=== PATIENT | male | born 1940 | race Hispanic/Latino ===

== ENCOUNTER 2019-09-24 12:46 | Inpatient (IN) | payer MEDICARE, OTHER ==
[~2019-09-24] VITALS: Ht 165.1 cm; Wt 97.1 kg
--- NOTE | 2019-09-24 13:32 | Emergency Department Note ---
History of Present Illnes History of Present Illness Chief Complaint: COVID PUI History of Present Illness This is a 79 year old male with SOB. D/C this AM from outside hospital. States he was in hospital for 2 days due to COVID with similar symptoms, but now worse. Historian: Patient, Family Member Arrival Mode: Car Onset (how long ago): day(s) Onset quality: gradual Duration (how long): day(s) Timing of current episode: constant Progression: worsening Chronicity: new Context: Reports recent illness Relieving factors: none, other Exacerbating factors: movement Associated symptoms: Reports fever/chills; Denies confusion, Denies chest pain, Denies cough, Denies diaphoresis, Denies headaches, Denies nausea/vomiting Past Medical/Family History Physician Review I have reviewed the patient's past medical and family history. Any updates have been documented here. Past Medical History Recent Fever: No Clinical Suspicion of Infectio: No New/Unexplained Change in Ment: No Past Medical History: Hypertension, [place] Other Medical History: CAD Past Surgical History: None Social History Any Illegal Drug Use: No Physically hurt or threatened: No Family History Family history of heart diseas: Yes Review of Systems Review of Systems Constitutional: Reports chills, Reports fever EENTM: Reports no symptoms Cardiovascular: Denies chest pain, Denies palpitations, Denies syncope Respiratory: Reports as per HPI, Reports cough Gastrointestinal: Denies diarrhea, Denies nausea Genitourinary: Reports no symptoms Musculoskeletal: Reports muscle pain Neurological: Reports no symptoms Psychological: Reports no symptoms Endocrine: Reports no symptoms Review of other systems: All other systems negative Physical Exam Related Data Allergies: Coded Allergies: No Known Allergies (Unverified , 09/24/19) Triage Vital Signs Vital Signs Date Time Temp Pulse Resp B/P (MAP) Pulse Ox O2 Delivery O2 Flow Rate FiO2 09/24/19 13:20 99.0 91 28 90/40 56 Room Air Physical Exam CONSTITUTIONAL Constitutional: Present well-developed HENT HENT: Present normocephalic, Present atraumatic EYES Eyes: Reports conjunctivae normal, Reports left eye discharge, Reports right eye discharge, Reports other (completes, full sentences, but pauses between sentences. Handles secretions.) NECK PULMONARY Pulmonary: Present respiratory distress, Present other (Patient RR 40's with sat of 58%, improved with O2 15L with sat 90% - able to complete full sentences, but had to pause between sentences.) CARDIOVASCULAR Cardiovascular: Present regular rhythm GASTROINTESTINAL Abdominal: Present soft, Present nontender GENITOURINARY SKIN Skin: Absent rash MUSCULOSKELETAL NEUROLOGICAL Neurological: Present alert, Present oriented x 3 PSYCHOLOGICAL Results Imaging Imaging Comments Procedure: [id number] HOPD/CXR 1 VEW - HOPD Exam Date: 09/24/19 Exam Time: 1333 REPORT STATUS: Signed EXAMINATION: CXR 1 VEW - HOP INDICATION: Shortness of breath, cough COMPARISON: None FINDINGS: LINES/TUBES:None LUNGS:The lungs are moderately inflated. Mild bilateral hazy opacities. PLEURA:No pleural effusion or pneumothorax. MEDIASTINUM:The cardiomediastinal silhouette appears normal in size and shape. BONES/SOFT TISSUES:No acute osseous injury. ABDOMEN:No free air under the diaphragm. IMPRESSION: Mild bilateral hazy opacities. Atypical pneumonia should be excluded clinically. Signed by: Ahmet Cleaning MD on 09/24/2019 1:39 PM Dictated By: AHMET CLEANING MD [id number] Transcribed By: PIERRE on 09/24/19 1339 Assessment & Plan Medical Decision Making MDM CAD, DC, PE, COVID, pneumonia, CHF, COPD Reassessment Reassessment Patient improved with O2. Spoke with EM physician at Patient's ER who accepted. Assessment & Plan Final Impression: (1) COVID-19 Depart Disposition: DIS/DOBBS T0 ACUTE CARE HOS[facility] Last Vital Signs Date Time Temp Pulse Resp B/P (MAP) Pulse Ox O2 Delivery O2 Flow Rate FiO2 09/24/19 13:20 99.0 91 28 90/40 56 Room Air ALEJANDRO YU MD Sep 24, 2019 13:32
--- NOTE | 2019-09-24 13:42 | Diagnostic Imaging Report ---
EXAMINATION: CXR 1 W - HOP INDICATION: Shortness of breath, cough COMPARISON: None FINDINGS: LINES/TUBES:None LUNGS:The lungs are moderately inflated. Mild bilateral hazy opacities. PLEURA:No pleural effusion or pneumothorax. MEDIASTINUM:The cardiomediastinal silhouette appears normal in size and shape. BONES/SOFT TISSUES:No acute osseous injury. ABDOMEN:No free air under the diaphragm. IMPRESSION: Mild bilateral hazy opacities. Atypical pneumonia should be excluded clinically. Signed by: Ken Cleaning MD on 09/24/2019 1:39 PM
[2019-09-24 14:01] LABS: BASOPHILS # (AUTO) 0.1 (0.0-0.1); BASOPHILS % 0.2 % (0.0-1.0); HEMATOCRIT 37.1 % (38.2-49.6); HEMOGLOBIN 12.6 g/dL (14.0-18.0); LYMPHOCYTES # (AUTO) 0.9 (1.0-3.2); MEAN CORPUSCULAR HEMOGLOBIN 31.5 pg (28-32); MEAN CORPUSCULAR VOLUME 92.8 fL (81-99); MONOCYTES # (AUTO) 1.5 (0.2-0.8); MONOCYTES % 6.9 % (4.4-11.3); NEUTROPHILS # (AUTO) 18.4 (2.1-6.9); NEUTROPHILS % 86.8 % (38.7-80.0); PLATELET COUNT 423 x10e3/uL (140-360)
[2019-09-24 14:44] LABS: ALBUMIN/GLOBULIN RATIO 0.7 (0.8-2.0); ANION GAP 20.3 mmol/L (8-16); CALCIUM 9.9 mg/dL (8.4-10.2); CREATININE, SERUM 2.09 mg/dL (0.72-1.25); POTASSIUM 4.3 mmol/L (3.5-5.1)
[2019-09-24] MEDS ORDERED: CEFTRIAXONE SOD 1 GM VIAL IV ONE (15:15)
--- NOTE | 2019-09-24 15:29 | Diagnostic Imaging Report ---
EXAMINATION: CHEST SINGLE (PORTABLE) INDICATION: Shortness of breath COMPARISON: Chest radiograph of earlier the same day. FINDINGS: LINES/TUBES:EKG leads overlie the chest. LUNGS:The lungs are moderately inflated. Mild hazy bilateral opacities. PLEURA:No pleural effusion or pneumothorax. MEDIASTINUM:The cardiomediastinal silhouette appears unchanged in size and shape. BONES/SOFT TISSUES:No acute osseous injury. ABDOMEN:No free air under the diaphragm. IMPRESSION: No significant interval change. Signed by: Ken Cleaning MD on 09/24/2019 3:26 PM
[2019-09-24] MEDS ORDERED: CEFTRIAXONE SOD 1 GM/NS 50 ML 50 ML IV ONE (15:30)
[2019-09-24] MEDS ORDERED: DEXAMETHASONE SOD PHOS 10 MG/1 ML VIAL IV ONE (16:00)
[2019-09-24] MEDS ORDERED: SODIUM CHLORIDE 0.9% 1000ML 1,000 ML IV SCH ×2 (16:30→17:00)
--- NOTE | 2019-09-24 16:40 | Emergency Department Note ---
History of Present Illnes History of Present Illness Chief Complaint: COVID PUI History of Present Illness This is a 79 year old male .Chief Complaint Comment Reports he was released from the hospital and is covid + room air sat is 56%, 86% on 15L NRB Historian: Patient, Family Member Arrival Mode: Car Onset (how long ago): day(s) Location: CHEST Quality: DULL Radiation: Denies non-radiation, Denies back, Denies neck, Denies extremity, Denies abdomen, Denies periumbilical, Denies flank, Denies proximal, Denies distal, Denies other Severity: severe Onset quality: gradual Duration (how long): day(s) Timing of current episode: constant Progression: worsening Chronicity: new Context: Reports recent illness Relieving factors: none, other Exacerbating factors: none, movement Associated symptoms: Reports denies other symptoms, Reports cough, Reports fever/chills; Denies confusion, Denies chest pain, Denies diaphoresis, Denies headaches, Denies nausea/vomiting Past Medical/Family History Physician Review I have reviewed the patient's past medical and family history. Any updates have been documented here. Past Medical History Recent Fever: No Clinical Suspicion of Infectio: No New/Unexplained Change in Ment: No Past Medical History: Hypertension, [place] Other Medical History: CAD Past Surgical History: None Social History Smoking Cessation: Unknown if ever smoked Counseling Performed: No Alcohol Use: None Any Illegal Drug Use: No Physically hurt or threatened: No Family History Family history of heart diseas: Yes Other Any Pre-Existing Lines (PICC,: Yes (HOPD) Review of Systems Review of Systems Constitutional: Reports as per HPI, Reports chills, Reports fever, Reports weakness EENTM: Reports no symptoms Cardiovascular: Denies chest pain, Denies palpitations, Denies syncope Respiratory: Reports as per HPI, Reports cough Gastrointestinal: Denies diarrhea, Denies nausea Genitourinary: Reports no symptoms Musculoskeletal: Reports muscle pain Integumentary: Reports no symptoms Neurological: Reports no symptoms Psychological: Reports no symptoms Endocrine: Reports no symptoms Hematological/Lymphatic: Reports no symptoms Review of other systems: All other systems negative Physical Exam Related Data Allergies: Coded Allergies: No Known Allergies (Unverified , 09/24/19) Triage Vital Signs Vital Signs Date Time Temp Pulse Resp B/P (MAP) Pulse Ox O2 Delivery O2 Flow Rate FiO2 09/24/19 13:10 15.0 09/24/19 13:20 99.0 91 28 90/40 56 Room Air 09/24/19 15:03 100 Vital signs reviewed: Yes Physical Exam CONSTITUTIONAL Constitutional: Present well-developed, Present distressed HENT HENT: Present normocephalic, Present atraumatic HENT L/R: Present left ext ear normal, Present right ext ear normal EYES Eyes: Reports conjunctivae normal, Reports left eye discharge, Reports right eye discharge, Reports other (completes, full sentences, but pauses between se ntences. Handles secretions.) NECK Neck: Present ROM normal PULMONARY Pulmonary: Present rhonchi, Present other (Patient RR 40's with sat of 58%, improved with O2 15L with sat 90% - able to complete full sentences, but had to pause between sentences.) CARDIOVASCULAR Cardiovascular: Present regular rhythm GASTROINTESTINAL Abdominal: Present soft, Present nontender GENITOURINARY Genitourinary: Present exam deferred SKIN Skin: Absent rash MUSCULOSKELETAL Musculoskeletal: Present ROM normal NEUROLOGICAL Neurological: Present alert, Present oriented x 3 PSYCHOLOGICAL Psychological: Present mood/affect normal, Present judgement normal Results Laboratory Result Diagram: 09/24/19 1348 09/24/19 1348 Laboratory Laboratory Tests Test 09/24/19 13:48 White Blood Count 21.18 x10e3/uL (4.8-10.8) Red Blood Count 4.00 x10e6/uL (4.3-5.7) Hemoglobin 12.6 g/dL (14.0-18.0) Hematocrit 37.1 % (38.2-49.6) Mean Corpuscular Volume 92.8 fL (81-99) Mean Corpuscular Hemoglobin 31.5 pg (28-32) Mean Corpuscular Hemoglobin Concent 34.0 g/dL (31-35) Red Cell Distribution Width 13.0 % (11.7-14.4) Platelet Count 423 x10e3/uL (140-360) Neutrophils (%) (Auto) 86.8 % (38.7-80.0) Lymphocytes (%) (Auto) 4.0 % (18.0-39.1) Monocytes (%) (Auto) 6.9 % (4.4-11.3) Eosinophils (%) (Auto) 0.0 % (0.0-6.0) Basophils (%) (Auto) 0.2 % (0.0-1.0) Neutrophils # (Auto) 18.4 (2.1-6.9) Lymphocytes # (Auto) 0.9 (1.0-3.2) Monocytes # (Auto) 1.5 (0.2-0.8) Eosinophils # (Auto) 0.0 (0.0-0.4) Basophils # (Auto) 0.1 (0.0-0.1) Absolute Immature Granulocyte (auto 0.44 x10e3/uL (0-0.1) Sodium Level 138 mmol/L (136-145) Potassium Level 4.3 mmol/L (3.5-5.1) Chloride Level 109 mmol/L (98-107) Carbon Dioxide Level 13 mmol/L (22-29) Anion Gap 20.3 mmol/L (8-16) Blood Urea Nitrogen 95 mg/dL (7-26) Creatinine 2.09 mg/dL (0.72-1.25) Estimat Glomerular Filtration Rate 31 ML/MIN (60-) BUN/Creatinine Ratio 45 (6-25) Glucose Level 136 mg/dL (74-118) Calcium Level 9.9 mg/dL (8.4-10.2) Total Bilirubin 0.9 mg/dL (0.2-1.2) Aspartate Amino Transf (AST/SGOT) 69 IU/L (5-34) Alanine Aminotransferase (ALT/SGPT) 133 IU/L (0-55) Alkaline Phosphatase 56 IU/L (40-150) Troponin I 0.010 ng/mL (0-0.300) B-Type Natriuretic Peptide 31.8 pg/mL (0-100) Total Protein 7.4 g/dL (6.5-8.1) Albumin 3.0 g/dL (3.5-5.0) Globulin 4.4 g/dL (2.3-3.5) Albumin/Globulin Ratio 0.7 (0.8-2.0) Lab results reviewed: Yes Imaging Imaging results reviewed: Yes Critical Care Time Total Critical Care Time (min): 45 Critical care time exclusive o: separately billable procedures Critcal care necessary due to: respiratory failure Critcal care time spent by me: develop tx plan w patient/surrogate, obtaining hx from patient/surrogate, order/perform tx or interventions, order/review laboratory studies, order/review radiographic studies Assessment & Plan Medical Decision Making MDM PNEUMONIA Reassessment Reassessment SAME Assessment & Plan Final Impression: (1) Pneumonia (2) COVID-19 (3) Hypoxia (4) Leukocytosis Depart Disposition: ADMITTED Last Vital Signs Date Time Temp Pulse Resp B/P (MAP) Pulse Ox O2 Delivery O2 Flow Rate FiO2 09/24/19 15:03 Vapotherm 40.0 100 09/24/19 14:35 80 28 97 09/24/19 14:07 97.8 Medications in the ED Ceftriaxone Sodium 1 gm ONCE ONCE IV ; Start 09/24/19 at 15:15; Stop 09/24/19 at 15:16; Status UNV Ceftriaxone Sodium 50 ml @ 100 mls/hr ONCE ONCE IV Last administered on 09/24/19at 15:29; Admin Dose 100 MLS/HR; Start 09/24/19 at 15:30; Stop 09/24/19 at 15:59; Status DC Dexamethasone Sodium Phosphate 6 mg ONCE ONCE IV ; Start 09/24/19 at 16:00; Stop 09/24/19 at 16:32; Status DC Enoxaparin Sodium 30 mg BID SC ; Start 09/24/19 at 17:00; Stop 10/01/19 at 16:59; Status UNV Sodium Chloride 1,000 ml @ 125 mls/hr Q8H IV ; Start 09/24/19 at 16:30; Stop 10/24/19 at 16:29 JEFF CAMPBELL MD Sep 24, 2019 16:40
[2019-09-24] MEDS ORDERED: CEFTRIAXONE SOD 1 GM VIAL IV SCH (17:00)
[2019-09-24] MEDS ORDERED: ONDANSETRON HCL INJ 2MG/ML 2ML 2 MG/ML VIAL IV PRN ×2 (17:00→18:15)
[2019-09-24] MEDS ORDERED: ENOXAPARIN 30 MG/0.3 ML SYR SC SCH (17:00)
[2019-09-24 17:21] LABS: ABG HCO3 14 mmol/L (22-26); ABG PCO2 28 mmHg (35-45); ABG PH 7.33 (7.35-7.45); ABG PO2 74 mmHg (80-105); ABG TCO2 15
[2019-09-24] MEDS ORDERED: ZOLPIDEM TARTRATE 5 MG TAB PO PRN (18:00)
[2019-09-24] MEDS ORDERED: HEPARIN 25,000 UNIT 1,300 UNIT in DEXTROSE 5% 250ML 250 ML IV SCH (18:00)
[2019-09-24] MEDS ORDERED: VANCOMYCIN 1GM/NS 250 ML 250 ML IV ONE (18:30)
[2019-09-24 18:58] LABS: INR 1.04; PROTHROMBIN TIME 14.1 seconds (11.9-14.5)
[2019-09-24 18:59] LABS: PARTIAL THROMBOPLASTIN TIME 35.3 seconds (23.8-35.5)
--- NOTE | 2019-09-24 18:59 | Consultation ---
DATE OF CONSULTATION: Pulmonary Critical Care Consultation CHIEF COMPLAINT: Worsening dyspnea and cough with a history of COVID-19. HISTORY OF PRESENT ILLNESS: The patient is an 79-year-old man. He has a history of hypertension and possible heart problems. He was hospitalized at [facility] 4 or 5 days ago with COVID-19 infection and stayed for 2 days. After returning home, his symptoms worsen. He noted cough. He also noticed increased dyspnea. He did not complain of chest pain or fevers. He does not complain of nausea or vomiting. PAST MEDICAL HISTORY: 1. Hypertension. 2. Hypercholesterolemia. 3. Vague history of heart disease. 4. No prior history of respiratory problems. PAST SURGICAL HISTORY: 1. Appendectomy. 2. The patient denies any prior heart surgeries or catheterizations. SOCIAL HISTORY: The patient quit smoking 15 years ago. He is not a drinker. FAMILY HISTORY: Family history is noncontributory. ALLERGIES: THERE ARE NO KNOWN DRUG ALLERGIES. REVIEW OF SYSTEMS: The patient has no fevers. There is no headache. He has no neck pain. He is not complaining of any chest pain. He does note dyspnea and cough. He has no abdominal pain. He has no nausea or vomiting. He has no leg edema. PHYSICAL EXAMINATION: VITAL SIGNS: The patient is afebrile. The blood pressure is 113/48 and the respiratory rate is 20. He is on a Vapotherm at 40 L and 100%. HEENT: Shows no facial swelling or erythema. CARDIAC: Reveals regular rate and rhythm with normal S1 and S2. LUNGS: Auscultation of lungs reveals crackles at the bases. There is no wheezing. ABDOMEN: Soft and nontender. There is no rebound or guarding. EXTREMITIES: Shows no leg edema or calf tenderness. There is no cyanosis or clubbing. SKIN: Shows no rashes. NEUROLOGICAL: Shows no focal abnormalities. RADIOGRAPHIC DATA: Chest x-ray shows hyperinflated lung coates with mild hazy bilateral opacities. LABORATORY DATA: White blood cell count is 21.2 and the hemoglobin is 12.6. The platelet count is 423. The BUN to creatinine ratio is 95 to 2.05. The carbon dioxide is 13 with an elevated anion gap of 17. AST is 69 and the ALT is 133. Albumin is 3.0. IMPRESSION: 1. Acute respiratory failure. 2. Viral pneumonia and COVID-19. 3. Bacterial pneumonia superimposed on viral pneumonia with severe sepsis, present on admission. 4. Acute kidney injury. 5. Metabolic acidosis. PLAN: 1. Continue Vapotherm. 2. The patient will receive IV fluids in accordance with sepsis protocol. 3. One dose of vancomycin and meropenem to cover for Staph healthcare-associated organisms. 4. Lactic acid, serum ketones, and procalcitonin. 5. Supplemental bicarbonate. 6. Monitor electrolytes, carbon dioxide, and creatinine. 7. Weight-based heparin protocol. The patient cannot receive Lovenox because of his and acute renal problems. 8. Dexamethasone. Иван Martinez MD [facility] /[id number]
[2019-09-24] MEDS: HEPARIN 25,000 UNIT 1,300 UNIT in DEXTROSE 5% 250ML 250 ML IV SCH (19:00)
[2019-09-24] MEDS: SODIUM BICARBONATE 8.4% 100 ML in DEXTROSE 5% 1,000 ML IV SCH (19:01)
[2019-09-24 19:46] LABS: BILIRUBIN,URINE NEGATIVE (NEGATIVE); CLARITY,URINE SL CLOUDY (CLEAR); COLOR,URINE YELLOW (YELLOW); KETONES,URINE NEGATIVE (NEGATIVE); LEUKOCYTE ESTERASE ,URINE NEGATIVE (NEGATIVE); NITRITE,URINE NEGATIVE (NEGATIVE); PROTEIN,URINE DIPSTICK NEGATIVE (NEGATIVE); URINE UROBILINOGEN 0.2 mg/dL (0.2 - 1)
[2019-09-24 19:51] LABS: BACTERIA,URINE FEW /HPF
[2019-09-24 21:00] VITALS: BP_SYST 133; BP_DIAS 52; BP_DIAS 54; BP_DIAS 56
[2019-09-24] MEDS ORDERED: SODIUM CHLORIDE 0.9% 250ML 250 ML ONE (21:09)
[2019-09-24] MEDS: MEROPENEM 1GM 100 ML IV SCH (21:47)
[2019-09-24 22:00] VITALS: BP 136/62
[2019-09-24 23:00] VITALS: BP 109/50
[2019-09-24] MEDS ORDERED: DEXTROSE 50% SYRINGE 50 ML IV PRN (23:45)
[2019-09-24] MEDS ORDERED: HYDRALAZINE HCL 20 MG/ML VIAL IV PRN (23:45)
[2019-09-24] MEDS ORDERED: DOCUSATE SODIUM 100 MG CAP PO PRN (23:45)
[2019-09-24] MEDS: SODIUM BICARBONATE 650 MG TAB PO SCH (23:45)
[2019-09-24 23:59] VITALS: BP 109/56
[2019-09-25] VITALS (24 sets, daily range): BP systolic 119–159; BP diastolic 42–68
[2019-09-25 01:16] LABS: CREATINE KINASE MB 1.8 ng/mL (0-5.0)
[2019-09-25] MEDS: HEPARIN 25,000 UNIT 1,300 UNIT in DEXTROSE 5% 250ML 250 ML IV SCH ×3 (01:17→16:54)
--- NOTE | 2019-09-25 01:22 | NUR ---
aptt 93.8. According to protocol, decrease by 100u/hr. Pt now at 1200u/hr= 12mL/hr. Verified with charge nurse.
[2019-09-25] MEDS ORDERED: CEFTRIAXONE SOD 1 GM/NS 50 ML 50 ML IV SCH (03:30)
[2019-09-25] MEDS: HYDROCODONE/CHLORPHENIRAMINE 5 ML LIQCR PO PRN (04:54)
[2019-09-25] MEDS: MEROPENEM 1GM 100 ML IV SCH ×2 (08:00→20:10)
[2019-09-25 08:28] LABS: BASOPHILS % 0.1 % (0.0-1.0); HEMATOCRIT 32.7 % (38.2-49.6); HEMOGLOBIN 11.4 g/dL (14.0-18.0); LYMPHOCYTES # (AUTO) 0.7 (1.0-3.2); MEAN CORPUSCULAR HEMOGLOBIN 32.3 pg (28-32); MEAN CORPUSCULAR HGB CONC 34.9 g/dL (31-35); MEAN CORPUSCULAR VOLUME 92.6 fL (81-99); MONOCYTES # (AUTO) 0.8 (0.2-0.8); MONOCYTES % 5.8 % (4.4-11.3); NEUTROPHILS % 85.2 % (38.7-80.0); PLATELET COUNT 372 x10e3/uL (140-360); RED BLOOD COUNT 3.53 x10e6/uL (4.3-5.7)
[2019-09-25 08:49] LABS: ALBUMIN 2.5 g/dL (3.5-5.0); ALBUMIN/GLOBULIN RATIO 0.6 (0.8-2.0); ANION GAP 16.4 mmol/L (8-16); CALCIUM 8.8 mg/dL (8.4-10.2); CREATINE KINASE 64 IU/L (30-200); CREATININE, SERUM 1.39 mg/dL (0.72-1.25); POTASSIUM 4.4 mmol/L (3.5-5.1)
[2019-09-25] MEDS: DEXAMETHASONE SOD PHOS INJ 4 MG/ML VIAL IV SCH (09:04)
[2019-09-25] MEDS: SODIUM BICARBONATE 650 MG TAB PO SCH ×2 (09:04→16:47)
[2019-09-25] MEDS: SODIUM BICARBONATE 8.4% 100 ML in DEXTROSE 5% 1,000 ML IV SCH (09:21)
--- NOTE | 2019-09-25 12:47 | NUR ---
ASSESSMENT: Spiritual concern Mobile Unit Assistant called pt's daughter, Shanna Geller, to provided emotional/spiritual support. Pt's daughter hopeful for recovery. Intervention: Provided empathic listening and prayer. Provided information on how to reach change booth attendant, if needed. Outcome: Pt's daughter expressed appreciation for support. Will follow as able. ROBIN Buchananlain Spiritual Care Department O: [phone]
--- NOTE | 2019-09-25 18:09 | Progress Note ---
DATE: Pulmonary Critical Care Progress Note SUBJECTIVE: The patient has remained on a heparin drip overnight. He is also on a bicarbonate drip. He remains on Vapotherm at 40 L with an FiO2 of 100%. He has a non-rebreather superimposed over the Vapotherm. PHYSICAL EXAMINATION: VITAL SIGNS: The blood pressure is 130/50, respiratory rate is 25, and the pulse is 64. Saturation is 91%. HEENT: Shows no facial swelling or erythema. LYMPHATIC: Shows no submandibular, cervical, or supraclavicular adenopathy. CARDIAC: Reveals regular rate and rhythm with normal S1 and S2. LUNGS: Auscultation of lungs reveals crackles at the bases. There is no wheezing. ABDOMEN: Soft, nontender. There is no rebound or guarding. EXTREMITIES: Shows no leg edema or calf tenderness. There is no cyanosis or clubbing. SKIN: Shows no rashes. NEUROLOGIC: Shows no focal abnormalities. LABORATORY DATA: BUN to creatinine ratio is 72 to 1.39. Carbon dioxide is 19. Other electrolytes are within normal limits. Albumin is 2.5. White blood cell count is 14 and hemoglobin is 11.4. The platelet count is 372. IMPRESSION: 1. Acute respiratory failure. 2. Viral pneumonia and coronavirus disease 2019 infection. 3. Bacterial pneumonia superimposed on coronavirus disease pneumonia with sepsis, present on admission. 4. Metabolic acidosis. 5. Acute kidney injury. PLAN: 1. Continue Vapotherm. 2. Continue judicious use of IV fluids with bicarbonate. 3. Continue to monitor renal function. 4. Renal ultrasound. 5. Echocardiogram. 6. Continue weight-based heparin protocol. If the renal function returns to normal, we will switch the patient to Lovenox. 7. Complete dexamethasone. 8. Continue antibiotics. 9. Case discussed with the patient, nursing, Respiratory, emergency department, the attending physician. Greater than 35 minutes in direct critical care time. Иван Martinez MD [facility]/MODL /[id number]
--- NOTE | 2019-09-25 19:10 | History and Physical ---
CHIEF COMPLAINT: Cough, congestion, subjective fever. HISTORY OF PRESENT ILLNESS: An 79-year-old male has a history of hypertension, hyperlipidemia. He was recently hospitalized at [facility] 4 to 5 days ago with COVID-19 infections, stayed for 2 days and was discharged, now presents with worsening cough, congestion, and hypoxia. The patient is on significant amount of oxygen at this time. The patient was seen and evaluated at bedside on the medical floor. The patient is in critical condition in the ICU. He is requiring significant amount of oxygen, but he is relatively doing well on examination. REVIEW OF SYSTEMS: Pertinent positive: Cough, congestion, fever. The rest of 14-point review of systems have been reviewed with the patient and are negative. ALLERGIES: NO KNOWN DRUG ALLERGIES. HOME MEDICATIONS: Still not available at this time. Please see med reconciliation form once available. PAST MEDICAL HISTORY: Hypertension, hyperlipidemia, has a history of heart disease in the past, very vague history. PAST SURGICAL HISTORY: Appendectomy, has heart surgery in the past, catheterizations in the past. PAST FAMILY HISTORY: Hypertension, diabetes. SOCIAL HISTORY: No drugs. No alcohol. Does not smoke. He used to be a smoker many years ago, quit 15 years ago. PHYSICAL EXAMINATION: VITAL SIGNS: Temperature is 97.3, pulse 67, respiratory rate 24, blood pressure 125/46, pulse ox is 91%, he is on a non-rebreather high-flow oxygen 15 L. GENERAL: Not in acute distress. He is on high-flow and non-rebreather. He is stable when I evaluated him. PULMONARY: Clear to auscultation bilaterally. No wheezing, rales, or rhonchi. No crackles appreciated. CARDIOVASCULAR: Positive S1, S2. No murmurs, rubs, or gallops appreciated. ABDOMEN: Soft, nondistended, and nontender to palpation. Bowel sounds present. MUSCULOSKELETAL: Strength is 5/5 throughout. NEUROLOGIC: Alert, awake, and oriented on examination x3. SKIN: Intact, warm to touch. Good cap refill. PSYCHIATRIC: Normal affect and mood. EXTREMITIES: No edema. Good range of motion throughout. LABORATORY DATA: Labs show white count was 14, hemoglobin 11, hematocrit 32, platelets of 372. Chemistry; sodium 141, potassium 4.4 chloride 110, bicarb 19, anion gap of 16, BUN is 72, creatinine is 1.39, glucose is 171, his calcium is 8.8, total bilirubin 0.5, AST 52, ALT 129, alkaline phosphatase is 55. Troponins were all negative. Total protein 6.7, albumin was 2.5. Urinalysis was negative. Serology; coronavirus was detected. MICROBIOLOGY: Blood cultures no growth. IMAGING STUDIES: Chest x-ray consistent with mild hazy bilateral opacity. IMPRESSION: 1. Acute respiratory failure. 2. Coronavirus disease-19 pneumonia. 3. Acute kidney injury. 4. Metabolic acidosis. 5. Dehydration. PLAN: At this time, the patient is currently in the ICU and Pulmonary Critical Care and ID have been consulted. The patient will maintain on IV antibiotics including steroids and vitamins. He is on a non-rebreather and a high-flow oxygen, which we will continue with, add antitussive medication. We will try to avoid any intubation as much as possible in this patient if we were able to do so. He is on sodium bicarbonate tabs for metabolic acidosis. Get morning labs. Restart home medications once they are available. Put him on Lovenox for DVT prophylaxis. He is on heparin drip for DVT prophylaxis due to underlying acute kidney injury. We will continue to monitor him very closely. Pulmonary Critical Care and ID are following. Discussed plan of care with nursing staff and the patient. MD SRIDHAR Manuel/LIAML /[id number]
[2019-09-25] MEDS: GUAIFENESIN/CODEINE 10 ML CUP PO PRN (20:10)
--- NOTE | 2019-09-25 20:33 | NUR ---
Pt is now self proning. Pt prior was saturating between 86-90%. Pt is now saturating at 100%. Pt remains on NRB with NC HF, 15L with vapotherm at 100% FiO2.
--- NOTE | 2019-09-25 23:00 | NUR ---
aPTT resulted and remains therapeutic. No change according to protocol. Pt's heparin gtt remains at 1000u/hr= 10cc/hr.
[2019-09-26] VITALS (25 sets, daily range): BP systolic 102–143; BP diastolic 33–66
[2019-09-26 05:17] LABS: BASOPHILS % 0.2 % (0.0-1.0); HEMATOCRIT 33.6 % (38.2-49.6); HEMOGLOBIN 11.4 g/dL (14.0-18.0); LYMPHOCYTES # (AUTO) 0.6 (1.0-3.2); LYMPHOCYTES % 3.7 % (18.0-39.1); MEAN CORPUSCULAR HEMOGLOBIN 31.9 pg (28-32); MEAN CORPUSCULAR HGB CONC 33.9 g/dL (31-35); MEAN CORPUSCULAR VOLUME 94.1 fL (81-99); MONOCYTES # (AUTO) 0.7 (0.2-0.8); MONOCYTES % 4.3 % (4.4-11.3); NEUTROPHILS # (AUTO) 14.2 (2.1-6.9); NEUTROPHILS % 88.3 % (38.7-80.0); PLATELET COUNT 322 x10e3/uL (140-360); RED BLOOD COUNT 3.57 x10e6/uL (4.3-5.7); RED CELL DISTRIBUTION WIDTH 12.7 % (11.7-14.4)
[2019-09-26] MEDS: HYDROCODONE/CHLORPHENIRAMINE 5 ML LIQCR PO PRN (06:02)
[2019-09-26 06:28] LABS: ALANINE AMINOTRANSFERASE 104 IU/L (0-55); ALBUMIN 2.4 g/dL (3.5-5.0); ALBUMIN/GLOBULIN RATIO 0.6 (0.8-2.0); ALKALINE PHOSPHATASE 52 IU/L (40-150); ANION GAP 17.5 mmol/L (8-16); BLOOD UREA NITROGEN 51 mg/dL (7-26); BUN/CREATININE RATIO 47 (6-25); CALCIUM 8.4 mg/dL (8.4-10.2); CARBON DIOXIDE 23 mmol/L (22-29); CHLORIDE 107 mmol/L (98-107); CREATININE, SERUM 1.08 mg/dL (0.72-1.25); EST GLOMERULAR FILTRATION RATE > 60 ML/MIN (60-); GLUCOSE 145 mg/dL (74-118); POTASSIUM 4.5 mmol/L (3.5-5.1); SODIUM 143 mmol/L (136-145)
--- NOTE | 2019-09-26 06:30 | NUR ---
Daily aPTT this morning is 72, which is 3rd consecutive therapeutic result. Per protocol, no change. Pt remains at 1000u/hr=10cc/hr. Pt also was able to tolerate self proning all shift, saturating at 100%. Pt is now supine, remains on 100% vapotherm and 15L NRB saturating at 90-94%. Pt was assisted with urinal and is now watching tv.
[2019-09-26] MEDS: DEXAMETHASONE SOD PHOS INJ 4 MG/ML VIAL IV SCH (08:30)
[2019-09-26] MEDS: SODIUM BICARBONATE 650 MG TAB PO SCH ×2 (08:30→17:52)
[2019-09-26] MEDS: MEROPENEM 1GM 100 ML IV SCH ×2 (08:30→19:50)
--- NOTE | 2019-09-26 08:36 | Diagnostic Imaging Report ---
EXAM: CHEST SINGLE (PORTABLE) DATE: 09/26/2019 5:47 AM INDICATION: Respiratory failure COMPARISON: 09/24/2019 FINDINGS: Again identified are increased interstitial opacity throughout the lungs bilaterally, similar to the prior examination. There is no evidence for lobar consolidation, pneumothorax, or significant volume pleural effusion. The cardiomediastinal silhouette is stable in appearance. No acute osseous abnormality is identified. IMPRESSION: No significant interval change from 09/24/2019. Grossly stable interstitial opacities identified throughout the lungs bilaterally which can be seen in the setting of a multifocal/viral infectious process. Signed by: Dr. Donovan Fields MD on 09/26/2019 8:33 AM
--- NOTE | 2019-09-26 08:53 | Consultation ---
DATE OF CONSULTATION: HISTORY OF PRESENT ILLNESS: This is an 79-year-old man who has history of hypertension, coronary artery disease. He was in [place] 5 days ago with COVID-19. He was there for a couple of days. When discharged home, became short of breath, came back here. The patient has a history of hypertension, hypercholesteremia, appendectomy, history of smoking, currently on dexamethasone, meropenem, heparin. LABORATORY STUDIES: White count is 21, hemoglobin 12 on admission. Sodium 141, potassium 4.4, creatinine 1.39. PHYSICAL EXAMINATION: GENERAL: He is currently intubated and sedated. Currently, the patient is on non-rebreather. HEENT: He is not icteric. NECK: Supple. CHEST: Crackles. Heart: S1, S2. ABDOMEN: Soft. IMPRESSION: Respiratory failure, coronavirus disease-19, concerned about superimposed bacterial pneumonia, treated with meropenem, vancomycin. We will put him on Lovenox, put him on dexamethasone. We will follow. MD SANTO [place]/MISAEL /[id number]
--- NOTE | 2019-09-26 11:45 | NUR ---
Patient self proning, 02 SATS 100%. will continue to monitor.
--- NOTE | 2019-09-26 14:24 | Progress Note ---
DATE: SUBJECTIVE: The patient , and was placed in the prone position. He remains on Vapotherm at 40 L with 100%. PHYSICAL EXAMINATION: VITAL SIGNS: The blood pressure is 112/52 and respiratory rate is normal. Pulse is 62. Saturation is 100% on a Vapotherm of 60 with 100%. HEENT: Shows no facial swelling or erythema. CARDIAC: Reveals regular rate and rhythm with normal S1 and S2. LUNGS: Auscultation of lungs reveals rhonchorous breath sounds bilaterally. There is no wheezing. ABDOMEN: Soft and nontender. There is no rebound or guarding. EXTREMITIES: Shows no leg edema or calf tenderness. There is no cyanosis or clubbing. SKIN: Shows no rashes. NEUROLOGICAL: Shows no focal abnormalities. LABORATORY DATA: White blood cell count is 16.1 and the hemoglobin is 11.4. The platelet count is 322. The BUN to creatinine ratio is 51 to 1.08. The other electrolytes are within normal limits. Albumin is 2.4. IMPRESSION: 1. Acute respiratory failure. 2. Viral pneumonia and COVID-19 infection. 3. Bacterial pneumonia superimposed on COVID pneumonia. 4. Acute kidney injury. 5. Metabolic acidosis. PLAN: 1. Continue Vapotherm. 2. Continue to keep the patient in prone position. 3. Continue to monitor renal function. 4. Continue weight-based heparin protocol. 5. Complete dexamethasone. 6. Continue antibiotics. Иван Martinez MD [facility]/MODL /[id number]
[2019-09-26] MEDS ORDERED: HEPARIN 25,000 UNIT DRIP IV ONE (17:57)
[2019-09-26] MEDS: HEPARIN 25,000 UNIT 1,300 UNIT in DEXTROSE 5% 250ML 250 ML IV SCH (18:11)
--- NOTE | 2019-09-26 19:10 | Progress Note ---
DATE: SUBJECTIVE: Mr. Geller remains in intensive care unit. PHYSICAL EXAMINATION: VITAL SIGNS: Stable, afebrile. HEENT: He is not icteric. NECK: Supple. CHEST: Crackles. HEART: S1, S2. No murmur. ABDOMEN: Soft. Bowel sounds present. EXTREMITIES: No edema. IMPRESSION AND PLAN: Respiratory failure, coronavirus disease-19, superimposed bacterial pneumonia, and acute kidney injury. Cultures are negative. White count is higher today. We will get sputum cultures. Currently, on dexamethasone, meropenem, and heparin. We will follow. MD SANTO [place]/MODL /[id number]
[2019-09-26] MEDS: GUAIFENESIN/CODEINE 10 ML CUP PO PRN (22:50)
[2019-09-27] VITALS (24 sets, daily range): BP systolic 105–148; BP diastolic 40–106
--- NOTE | 2019-09-27 01:42 | Progress Note ---
DATE: 09/26/2019 Medicine Progress Note SUBJECTIVE: The patient was seen at approximately 2:10 this afternoon. He is not intubated. He is on a nonrebreather high flow oxygen and he is on prone position. OBJECTIVE: VITAL SIGNS: Temperature 98, pulse 72, respiratory rate is 18, blood pressure 123/48, he is on a 97% O2 sats nonrebreather high flow oxygen, on Vapotherm. GENERAL: In no acute distress. Alert and oriented x3. Cooperative on examination. HEENT: Head is normocephalic and atraumatic. Eyes; pupils are equal, round, and reactive to light bilaterally. Extraocular movements are intact bilaterally. Throat, no evidence of any erythema or exudates in the posterior pharynx. Has poor dentition. NECK: Supple. Good range of motion. PULMONARY: Clear to auscultation bilaterally. He is on Vapotherm, high flow oxygen with a nonrebreather. CARDIOVASCULAR: Positive S1 and S2. No murmurs, rubs, or gallops appreciated. GI: Abdomen is soft, nondistended, nontender to palpation. Bowel sounds present. MUSCULOSKELETAL: Strength is 5/5 throughout. No evidence of any muscle deficits on examination. No weakness appreciated. NEUROLOGIC: Cranial nerves 2 through 12 grossly intact. No evidence of any neurological deficits on exam. SKIN: Intact. Warm to touch. Good cap refill. PSYCHIATRIC: Normal affect and mood. EXTREMITIES: No edema. Good range of motion throughout. LABORATORY DATA: CBC shows white count of 16, hemoglobin is stable, chemistry reviewed, also found to be stable. MICROBIOLOGY: Sputum cultures are pending. Blood cultures are no growth. IMAGING STUDIES: Chest x-ray shows grossly stable interstitial opacities identified throughout the lungs bilaterally. IMPRESSION: 1. Acute respiratory failure. 2. Coronavirus COVID-19 pneumonia. 3. The patient had acute kidney injury. 4. Metabolic acidosis improved. 5. Dehydration. PLAN: At this time, continue with antibiotics steroids, high doses of vitamins. He is on nonrebreather high flow oxygen with Vapotherm. Antitussives were given p.r.n. He seems to be very stable at this current movement with no changes. We will continue same plan of care, monitor very closely. His bicarbonate improves. Continue following with Pulmonary Critical Care and ID. Lovenox for DVT prophylaxis. MD SRIDHAR Manuel/MISAEL /[id number]
[2019-09-27 04:53] LABS: BASOPHILS % 0.3 % (0.0-1.0); HEMATOCRIT 33.9 % (38.2-49.6); HEMOGLOBIN 11.4 g/dL (14.0-18.0); LYMPHOCYTES # (AUTO) 0.5 (1.0-3.2); LYMPHOCYTES % 3.6 % (18.0-39.1); MEAN CORPUSCULAR HEMOGLOBIN 32.3 pg (28-32); MEAN CORPUSCULAR HGB CONC 33.6 g/dL (31-35); MONOCYTES # (AUTO) 0.4 (0.2-0.8); MONOCYTES % 2.7 % (4.4-11.3); NEUTROPHILS # (AUTO) 12.9 (2.1-6.9); NEUTROPHILS % 90.2 % (38.7-80.0); PLATELET COUNT 348 x10e3/uL (140-360); RED BLOOD COUNT 3.53 x10e6/uL (4.3-5.7); RED CELL DISTRIBUTION WIDTH 12.7 % (11.7-14.4)
[2019-09-27 05:10] LABS: ALANINE AMINOTRANSFERASE 74 IU/L (0-55); ALBUMIN 2.3 g/dL (3.5-5.0); ALBUMIN/GLOBULIN RATIO 0.5 (0.8-2.0); ALKALINE PHOSPHATASE 60 IU/L (40-150); ANION GAP 13.8 mmol/L (8-16); BLOOD UREA NITROGEN 41 mg/dL (7-26); BUN/CREATININE RATIO 42 (6-25); CALCIUM 9.1 mg/dL (8.4-10.2); CARBON DIOXIDE 25 mmol/L (22-29); CHLORIDE 106 mmol/L (98-107); CREATININE, SERUM 0.97 mg/dL (0.72-1.25); EST GLOMERULAR FILTRATION RATE > 60 ML/MIN (60-); GLUCOSE 111 mg/dL (74-118); POTASSIUM 4.8 mmol/L (3.5-5.1); SODIUM 140 mmol/L (136-145)
--- NOTE | 2019-09-27 08:50 | Diagnostic Imaging Report ---
X-ray chest AP portable Comparison: 09/26/2019 History: Respiratory failure Findings: Patient rotation on this AP exam. Central airways unremarkable. Heart size borderline. No definite pleural effusion. No pneumothorax. Bilateral interstitial diffuse infiltrates consistent with the history of viral pneumonitis. No acute abnormalities in the visualized skeletal structures are upper abdomen. Impression: Diffuse bilateral interstitial infiltrates consistent with the history of viral pneumonitis. Signed by: Lawrence Linton MD on 09/27/2019 8:47 AM
[2019-09-27] MEDS: SODIUM BICARBONATE 650 MG TAB PO SCH ×2 (08:58→16:04)
[2019-09-27] MEDS: MEROPENEM 1GM 100 ML IV SCH ×2 (08:58→21:54)
[2019-09-27] MEDS: DEXAMETHASONE SOD PHOS INJ 4 MG/ML VIAL IV SCH (08:58)
[2019-09-27] MEDS: HYDROCODONE/CHLORPHENIRAMINE 5 ML LIQCR PO PRN (10:56)
--- NOTE | 2019-09-27 10:57 | NUR ---
patient 02 sats dropped to 76-80%, patient assisted to self prone, 02 sats slowly rised and is now 97%, will continue to closely monitor.
[2019-09-27] MEDS ORDERED: LACTATED RINGER'S 500 ML INJ ONE (15:00)
--- NOTE | 2019-09-27 15:19 | Progress Note ---
DATE: SUBJECTIVE: The patient is still requiring Vapotherm with 40 L and 100%. He is now in the prone position. He is saturating in the low-to-mid 90s. PHYSICAL EXAMINATION: VITAL SIGNS: Blood pressure is 123/90 and saturation is mid 90s, on Vapotherm as noted above. HEENT: Shows no facial swelling or erythema. CARDIAC: Reveals regular rate and rhythm with normal S1 and S2. LUNGS: Auscultation of lungs reveals rhonchorous breath sounds bilaterally. There is no wheezing. ABDOMEN: Soft and nontender. There is no rebound or guarding. EXTREMITIES: Shows no leg edema or calf tenderness. There is no cyanosis or clubbing. SKIN: Shows no rashes. NEUROLOGICAL: Shows no focal abnormalities. LABORATORY DATA: BUN to creatinine ratio is 41 to 0.97. Other electrolytes are within normal limits and the albumin is 2.3. White blood cell count is 14.3 and the hemoglobin is 11.4. The platelet count is 394. RADIOGRAPHIC DATA: Chest x-ray shows bilateral infiltrates. IMPRESSION: 1. Acute respiratory failure. 2. Viral pneumonia and COVID-19 infection. 3. Acute kidney injury. 4. Metabolic acidosis. PLAN: 1. Continue current antibiotics. 2. Complete dexamethasone. 3. Speech therapy evaluation to rule out aspiration. 4. Wean Vapotherm. 5. Continue to monitor and control blood sugars. Иван Martinez MD [facility]/MODL /[id number]
--- NOTE | 2019-09-27 18:02 | NUR ---
VITAL SIGNS: Blood pressure is 123/90 and saturation is mid 90s, on Vapotherm as noted above. HEENT: Shows no facial swelling or erythema. CARDIAC: Reveals regular rate and rhythm with normal S1 and S2. LUNGS: Auscultation of lungs reveals rhonchorous breath sounds bilaterally. There is no wheezing. ABDOMEN: Soft and nontender. There is no rebound or guarding. EXTREMITIES: Shows no leg edema or calf tenderness. There is no cyanosis or clubbing. SKIN: Shows no rashes. NEUROLOGICAL: Shows no focal abnormalities. LABORATORY DATA: BUN to creatinine ratio is 41 to 0.97. Other electrolytes are within normal limits and the albumin is 2.3. White blood cell count is 14.3 and the hemoglobin is 11.4. The platelet count is 394. RADIOGRAPHIC DATA: Chest x-ray shows bilateral infiltrates.[id number]
[2019-09-27] MEDS: ENOXAPARIN 30 MG/0.3 ML SYR SC SCH (21:54)
--- NOTE | 2019-09-27 23:32 | Progress Note ---
DATE: SUBJECTIVE: Mr. Geller remains in Intensive Care Unit. He is still on Vapotherm, in prone position. OBJECTIVE: VITAL SIGNS: Stable, afebrile. HEENT: He is not icteric. NECK: Supple. CHEST: Crackles. IMPRESSION: Acute respiratory failure, coronavirus disease 2019, acute kidney injury, metabolic acidosis. Continue with plan as ordered. Discussed with Medical Team. We will follow. Bakari Can MD [facility]/MODL /[id number]
--- NOTE | 2019-09-27 23:33 | Progress Note ---
DATE: 09/27/2019 Medicine Progress Note SUBJECTIVE: The patient was seen and evaluated approximately 1:20 p.m. The patient was in the prone position. His oxygenation is still elevated, but his O2 saturation is okay with proning position. PHYSICAL EXAMINATION: VITAL SIGNS: Temperature is 97.3, pulse 98, respiratory rate is 26, blood pressure 131/51, and pulse ox 96% on non-rebreather and high-flow oxygen. GENERAL: Not in acute distress. Alert and oriented x3. Cooperative on examination. HEENT: Head; normocephalic, atraumatic. Eyes; pupils are equal, round, and reactive to light bilaterally. Extraocular movements intact bilaterally. Throat; no evidence of erythema or exudates in the posterior pharynx. Has poor dentition. NECK: Supple. Good range of motion. PULMONARY: Clear to auscultation bilaterally. No wheezing, no rales, no rhonchi, no crackles appreciated. CARDIOVASCULAR: Positive S1 and S2. No murmurs, rubs, or gallops appreciated. ABDOMEN: Soft, nondistended, and nontender to palpation. Bowel sounds present. SKIN: Intact. Warm to touch. Good cap refill. PSYCHIATRIC: Normal affect and mood. EXTREMITIES: No edema. Good range of motion throughout. LABORATORY DATA: White count 14, hemoglobin 11, hematocrit is 34, and platelets of 348. Chemistry; sodium 140, potassium 4.8, chloride 106, bicarb 25, anion gap of 13, BUN is 41, creatinine 0.97, and glucose is 111. MICROBIOLOGY: All cultures so far were found to be negative. IMAGING STUDIES: Chest x-ray shows diffuse bilateral interstitial infiltrates consistent with history of viral pneumonia. IMPRESSION: 1. Acute respiratory failure. 2. COVID-19 pneumonia. 3. Acute kidney injury. 4. Metabolic acidosis. 5. Dehydration. PLAN: At this time, continue with steroids, antibiotics, high doses of vitamins. He is on high-flow oxygen as well as Vapotherm. Continue with prone position. Continue following with Pulmonary Critical Care and ID management. Otherwise, the patient is still in the ICU in critical condition. Lovenox for DVT prophylaxis. Koby Candelaria MD [facility]/MODL /[id number]
[2019-09-28] VITALS (22 sets, daily range): BP systolic 118–173; BP diastolic 34–68
[2019-09-28 06:01] LABS: BASOPHILS % 0.2 % (0.0-1.0); HEMATOCRIT 32.4 % (38.2-49.6); LYMPHOCYTES # (AUTO) 0.4 (1.0-3.2); LYMPHOCYTES % 2.3 % (18.0-39.1); MEAN CORPUSCULAR HEMOGLOBIN 32.4 pg (28-32); MEAN CORPUSCULAR VOLUME 95.3 fL (81-99); MONOCYTES # (AUTO) 0.2 (0.2-0.8); MONOCYTES % 1.3 % (4.4-11.3); NEUTROPHILS # (AUTO) 14.9 (2.1-6.9); NEUTROPHILS % 93.9 % (38.7-80.0); PLATELET COUNT 306 x10e3/uL (140-360); RED CELL DISTRIBUTION WIDTH 12.8 % (11.7-14.4)
[2019-09-28 06:26] LABS: ALANINE AMINOTRANSFERASE 72 IU/L (0-55); ALBUMIN/GLOBULIN RATIO 0.5 (0.8-2.0); ALKALINE PHOSPHATASE 57 IU/L (40-150); ANION GAP 13.6 mmol/L (8-16); BLOOD UREA NITROGEN 32 mg/dL (7-26); BUN/CREATININE RATIO 39 (6-25); CALCIUM 8.9 mg/dL (8.4-10.2); CARBON DIOXIDE 25 mmol/L (22-29); CHLORIDE 106 mmol/L (98-107); CREATININE, SERUM 0.83 mg/dL (0.72-1.25); EST GLOMERULAR FILTRATION RATE > 60 ML/MIN (60-); GLUCOSE 125 mg/dL (74-118); POTASSIUM 4.6 mmol/L (3.5-5.1); SODIUM 140 mmol/L (136-145)
[2019-09-28] MEDS: MEROPENEM 1GM 100 ML IV SCH ×2 (07:34→20:24)
[2019-09-28 08:03] LABS: LYMPHOCYTES % (MANUAL) 3 % (19-48); MONOCYTES % (MANUAL) 1 % (3.4-9.0); NEUTROPHILS % (MANUAL) 96 % (40-74); NUCLEATED RED BLOOD CELLS 1; PLATELET ESTIMATE ADEQUATE; PLATELET MORPHOLOGY COMMENT NORMAL; RBC MORPHOLOGY COMMENT NORMAL
[2019-09-28] MEDS: ENOXAPARIN 30 MG/0.3 ML SYR SC SCH ×2 (09:20→20:24)
[2019-09-28] MEDS: DEXAMETHASONE SOD PHOS INJ 4 MG/ML VIAL IV SCH (09:20)
[2019-09-28] MEDS: SODIUM BICARBONATE 650 MG TAB PO SCH (09:20)
[2019-09-28] MEDS ORDERED: SODIUM CHLORIDE 0.9% 250ML 250 ML ONE (10:21)
--- NOTE | 2019-09-28 10:38 | NUR ---
ZAKIA FROM [facility] CALLED FOR DISCHARGE PLANNING ASSISTANCE, LET KNOW NOT READY, HER NUMBER FOR FUTURE IS [phone]
[2019-09-28] MEDS ORDERED: MIDAZOLAM HCL 2 MG/2 ML VIAL ONE (11:59)
[2019-09-28] MEDS: FENTANYL 2000MCG/NS 250 250 ML IV PRN (13:20)
[2019-09-28] MEDS: MIDAZOLAM HCL 5MG/ML 10ML VIAL 100 ML IV PRN ×3 (13:27→19:20)
[2019-09-28] MEDS ORDERED: LACTATED RINGER'S 500 ML INJ ONE (13:45)
--- NOTE | 2019-09-28 13:45 | Diagnostic Imaging Report ---
EXAMINATION: CHEST SINGLE (PORTABLE), ABDOMEN-1VIEW (KUB) INDICATION: Intubation, line placement, NG tube placement COMPARISON: Chest radiograph 09/26/2019 FINDINGS: LINES/TUBES:Endotracheal tube terminates 4 cm above the dulce. Right IJ central venous catheter terminates in the superior vena cava. Enteric tube with tip and side-port in the proximal duodenum. LUNGS:The lungs are moderately inflated. Interval increase in bilateral multifocal airspace opacities. PLEURA:No pleural effusion or pneumothorax. MEDIASTINUM:The cardiomediastinal silhouette appears unchanged in size and shape. BONES/SOFT TISSUES:No acute osseous injury. ABDOMEN:No free air under the diaphragm. IMPRESSION: Endotracheal tube and right IJ central venous catheter in good position. Enteric tube terminates in the proximal duodenum. Interval increase in bilateral multifocal patchy airspace opacities consistent with provided history of viral pneumonia. Signed by: Ken Cleaning MD on 09/28/2019 1:41 PM
[2019-09-28] MEDS ORDERED: HEPARIN SOD/SOD CHLORIDE 1,000 ML IV SCH (14:00)
--- NOTE | 2019-09-28 14:00 | Progress Note ---
DATE: SUBJECTIVE: The patient is desaturating despite being on maximum Vapotherm in the prone position. He also notes tachycardia and confusion. He required intubation. He is now on a mechanical ventilator. PHYSICAL EXAMINATION: VITAL SIGNS: The patient is afebrile. The blood pressure is 151/40 and the saturation is 94%. Pulse is 89. HEENT: No facial swelling or erythema. There is an oral endotracheal tube. There is a right IJ line. The site is clean. CARDIAC: Regular rate and rhythm with normal S1, S2. LUNGS: Auscultation of lungs reveals crackles at the bases. There is no wheezing. ABDOMEN: Soft, nontender. There is no rebound or guarding. There is no leg edema or calf tenderness. There is no cyanosis or clubbing. SKIN: No rashes. NEUROLOGICAL: No focal abnormalities. LABORATORY DATA: White blood cell count is 15.9, hemoglobin is 11 and the platelet count is 306. The BUN to creatinine ratio is improved to 32/0.83. The other electrolytes are within normal limits. ALT is elevated at 72 and AST is 48. Albumin is 2.0. IMPRESSION: 1. Viral pneumonia and coronavirus disease-19 infection. 2. Acute respiratory failure. 3. Acute kidney injury. 4. Diabetes. 5. Viral hepatitis. PLAN: 1. Continue mechanical ventilation and repeat ABG. 2. Complete dexamethasone. 3. Continue current antibiotics. 4. Continue sedation. Иван Martinez MD [facility]/MODL /[id number]
--- NOTE | 2019-09-28 14:39 | Operative Report ---
DATE OF PROCEDURE: SURGEON: Иван Martinez MD PROCEDURE: Endotracheal intubation with GlideScope. PREOPERATIVE DIAGNOSIS: Respiratory failure. POSTOPERATIVE DIAGNOSIS: Respiratory failure. CONSENT: Consent was obtained from the patient. MEDICATIONS: Versed 1 mg, etomidate 20 mg, and succinylcholine 100 mg. DESCRIPTION OF PROCEDURE: The patient was placed in supine position. He was desaturating to the 80s despite being on Vapotherm and in the prone position. He was preoxygenated with an Ambu bag. He received Versed followed by etomidate and succinylcholine. A 3-0 MAC blade was used to visualize the glottis. An 8.0 endotracheal tube was passed through the glottis on the first attempt. There was good CO2 return. There were equal breath sounds bilaterally. COMPLICATIONS: None. ESTIMATED BLOOD LOSS: None. Иван Martinez MD [facility]/MODL /[id number]
--- NOTE | 2019-09-28 14:44 | Operative Report ---
DATE OF PROCEDURE: SURGEON: Иван Martinez MD PROCEDURE: Central line placement under ultrasound guidance. PREOPERATIVE DIAGNOSIS: Acute kidney injury. POSTOPERATIVE DIAGNOSIS: Acute kidney injury. CONSENT: Consent was deemed emergent due to respiratory failure and hemodynamic instability along with kidney injury. MEDICATIONS: 1% lidocaine for local anesthesia. DESCRIPTION OF PROCEDURE: The patient was placed in a supine position. The right neck was prepped sterilely with chlorhexidine. A full length sterile drape, sterile gown, and sterile gloves were used. 1% lidocaine was used to anesthetize the area between the heads of the sternocleidomastoid. An ultrasound machine was used to locate the right internal jugular vein. The vein was patent. There was no thrombosis. The vein was cannulated under direct visualization with a 16-gauge needle. A wire was passed through the needle. A dilator was used to open the skin and a triple-lumen catheter was placed over the wire by the Seldinger technique. All the ports flushed. COMPLICATIONS: None. ESTIMATED BLOOD LOSS: None. Иван Martinez MD [facility]/MODL /[id number]
--- NOTE | 2019-09-28 15:53 | NUR ---
ST Note: Order for bedside swallow eval noted. Pt recently intubated. Will f/u as indicated.
--- NOTE | 2019-09-28 16:51 | NUR ---
progress note seen and examined labs seen he patient is desaturating despite being on maximum Vapotherm in the prone position. He also notes tachycardia and confusion. He required intubation. He is now on a mechanical ventilator. PHYSICAL EXAMINATION: VITAL SIGNS: The patient is afebrile. The blood pressure is 151/40 and the saturation is 94%. Pulse is 89. HEENT: No facial swelling or erythema. There is an oral endotracheal tube. There is a right IJ line. The site is clean. CARDIAC: Regular rate and rhythm with normal S1, S2. LUNGS: Auscultation of lungs reveals crackles at the bases. There is no wheezing. ABDOMEN: Soft, nontender. There is no rebound or guarding. There is no leg edema or calf tenderness. There is no cyanosis or clubbing. SKIN: No rashes. NEUROLOGICAL: No focal abnormalities. LABORATORY DATA: White blood cell count is 15.9, hemoglobin is 11 and the platelet count is 306. The BUN to creatinine ratio is improved to 32/0.83. The other electrolytes are within normal limits. ALT is elevated at 72 and AST is 48. Albumin is 2.0. IMPRESSION: 1. Viral pneumonia and coronavirus disease-19 infection. 2. Acute respiratory failure. 3. Acute kidney injury. 4. Diabetes. cont same discussed with medical team
[2019-09-28] MEDS ORDERED: SODIUM CHLORIDE 0.9% 500ML 500 ML ONE (17:08)
[2019-09-28] MEDS ORDERED: NOREPINEPHRINE 8 MG/D5W 250 ML 250 ML ONE (18:09)
[2019-09-28] MEDS: NOREPINEPHRINE 8 MG/D5W 250 ML 250 ML IV SCH (18:15)
--- OUTSIDE RECORDS SUMMARY | 2019-09-28 18:50 | XMS REPORT | Continuity of Care Document ---
Author Author [facility] t Organization [facility] Address [address] [place] [address] Phone Unavailable Care Team Providers Care Press Operator Meat Name Role Phone Enrico MELTON Attphys Unavailable Enrico MELTON Admphys Unavailable Payers Payer Name Policy Type Policy Number Effective Date Expiration Date S ource Problems This patient has no known problems. Allergies, Adverse Reactions, Alerts Allergy Name Allergy Type Status Severity Reaction(s) Onset Date Inacti ve Date Treating Clinician Comments Source No Known Allergies DA Active U 2019-09-17 00:00:00 [facility] No Known Allergies DA Active U 2019-02-20 00:00:00 [facility] Medications This patient has no known medications. Procedures This patient has no known procedures. Results Test Description Test Time Test Comments Results Result Comments Source CHEST SINGLE (PORTABLE) 2019-09-27 08:45:00 [facility] [address] [place], [place] [address] Patient Name: EAGLE CASTILLO MR #: [id number] : 1940 Age/Sex: 79/M Req #: [id number] Adm Physician: ALEJO MELTON MD Ordered by: FERNANDA BLUM MD Report #: [id number] Location: ICU Room/Bed: ICU [facility] Procedure: [id number] DX/CHEST SINGLE (PORTABLE) Exam Date: 09/27/19 Exam Time: 0505 REPORT STATUS: Signed X-ray chest AP portable Comparison: 09/26/2019 History: Respiratory failure Findings: Patient rotation on this AP exam. Central airways unremarkable. Heart size borderline. No definite pleural effusion. No pneumothorax. Bilateral interstitial diffuse infiltrates consistent with the history of viral pneumonitis. No acute abnormalities in the visualized skeletal structures are upper abdomen. Impression: Diffuse bilateral interstitial infiltrates consistent with the history of viral pneumonitis. Signed by: Lawrence Hamm MD on 09/27/2019 8:47 AM Dictated By: LAWRENCE HAMM MD Transcribed By: PIERRE on 09/27/19846 COPY TO: FERNANDA BLUM MD CHEST SINGLE (PORTABLE) 2019-09-26 08:32:00 [place] [address] Patient Name: EAGLE CASTILLO MR #: [id number] : 1940 Age/Sex: 79/M Req #: [id number] [facility] Physician: ALEJO MELTON MD Ordered by: FERNANDA BLUM MD Report #: [id number] Location: ICU Room/Bed: ICU 196 Procedure: [id number] DX/CHEST SINGLE (PORTABLE) Exam Date: 09/26/19 Exam Time: 0610 REPORT STATUS: Signed EXAM: CHEST SINGLE (PORTABLE) DATE: 09/26/2019 5:47 AM INDICATION: Respiratory failure COMPARISON: 09/24/2019 FINDINGS: Again identified are increased interstitial opacity throughout the lungs bilaterally, similar to the prior examination. There is no evidence for lobar consolidation, pneumothorax, or significant volume pleural effusion. The cardiomediastinal silhouette is stable in appearance. No acute osseous abnormality is identified. IMPRESSION: No significant interval change from 09/24/2019. Grossly stable interstitial opacities identified throughout the lungs bilaterally which can be seen in the setting of a multifocal/viral infectious process. Signed by: Dr. Donovan Fields MD on 09/26/2019 8:33 AM Dictated By: DONOVAN FIELDS MD 2 Transc ribed By: PIERRE on 09/26/19832 COPY TO: FERNANDA BLUM MD CHEST SINGLE (PORTABLE) 2019-09-24 15:25:00 [place] [address] Patient Name: EAGLE CASTILLO MR #: [id number] : 1940 Age/Sex: 79/M Req #: [id number] Adm Physician: Ordered by: JEFF CAMPBELL MD Report #: [id number] Location: ER Room/Bed: Procedure: [id number] DX/CHEST SINGLE (PORTABLE) Exam Date: 09/24/19 Exam Time: 1500 REPORT STATUS: Signed EXAMINATION: CHEST SINGLE (PORTABLE) INDICATION: Shortness of breath COMPARISON: Chest radiograph of earlier the same day. FINDINGS: LINES/TUBES:EKG leads overlie the chest. LUNGS:The lungs are moderately inflated. Mild hazy bilateral opacities. PLEURA:No pleural effusion or pneumothorax. MEDIASTINUM:The cardiomediastinal silhouette appears unchanged in size and shape. BONES/SOFT TISSUES:No acute osseous injury. ABDOMEN:No free air under the diaphragm. IMPRESSION: No significant interval change. Signed by: Ahmet Garcia MD on 09/24/2019 3:26 PM Dictated By: AHMET GARCIA MD 1526 Transcribed By: PIERRE on 09/24/19 1526 COPY TO: JEFF CAMPBELL MD CXR 1 [facility] 2019-09-24 13:38:00 [place] [address] Patient Name: EAGLE CASTILLO MR #: [id number] : 1940 Age/Sex: 79/M Req #: [id number] Adm Physician: Ordered by: ALEJANDRO YU MD Report #: [id number] Location: [facility] Room/Bed: Procedure: [id number] HOPD/CXR 1 [facility] Exam Date: 09/24/19 Exam Time: 1333 REPORT STATUS: Signed EXAMINATION: CXR 1 [facility] INDICATION: Shortness of breath, cough COMPARISON: None FINDINGS: LINES/TUBES:None LUNGS:The lungs are moderately inflated. Mild bilateral hazy opacities. PLEURA:No pleural effusion or pneumothorax. MEDIASTINUM:The cardiomediastinal silhouette appears normal in size and shape. BONES/SOFT TISSUES:No acute osseous injury. ABDOMEN:No free air under the diaphragm. IMPRESSION: Mild bilateral hazy opacities. Atypical pneumonia should be excluded clinically. Signed by: Ahmet Garcia MD on 09/24/2019 1:39 PM Dictated By: AHMET GARCIA MD 38 Transcribed By: PIERRE on 09/24/191338 COPY TO: ALEJANDRO YU MD CBC W/AUTO DIFF 2019-09-19 09:51:00 Test Item WHITE BLOOD CELL (test code = WBC) 5.6 K/mm3 4.5-11.0 N RED BLOOD CELL (test code = RBC) 3.76 M/mm3 4.40-5.90 L HEMOGLOBIN (test code = HGB) 12.3 gm/dL 13.0-17.0 L HEMATOCRIT (test code = HCT) 36.1 % 36.0-48.0 N MEAN CELL VOLUME (test code = MCV) 96.0 UM3 80.0-94.0 H MEAN CELL HGB (test code = MCH) 32.7 UUG 25.5-32.5 H MEAN CELL HGB CONCETRATION (test code = MCHC) 34.1 gm/dL 29.0-35. 5 N RED CELL DISTRIBUTION WIDTH (test code = RDW) 12.3 % 11.5-15. 0 N RED CELL DISTRIBUTION WIDTH SD (test code = RDW-SD) 43.7 fL 34 .8-50.2 N PLATELET COUNT (test code = PLT) 193 K/mm3 150-400 MEAN PLATELET VOLUME (test code = MPV) 11.2 fl 7.4-10.4 H NEUTROPHIL % (test code = NT%) 78.3 % 49.0-76.0 H IMMATURE GRANULOCYTE % (test code = IG%) 0.2 % 0.0-0.4 N LYMPHOCYTE % (test code = LY%) 14.3 % 23.0-38.0 L MONOCYTE % (test code = MO%) 7.0 % 1.0-10.0 N EOSINOPHIL % (test code = EO%) 0.0 % 1.0-5.0 L BASOPHIL % (test code = BA%) 0.2 % 0.0-1.0 N NEUTROPHIL # (test code = NT#) 4.4 K/mm3 2.4-6.3 N IMMATURE GRANULOCYTE # (test code = IG#) 0.01 x10 3/uL 0.00-0.07 N LYMPHOCYTE # (test code = LY#) 0.8 K/mm3 1.2-4.0 L MONOCYTE # (test code = MO#) 0.4 K/mm3 0.0-0.6 N EOSINOPHIL # (test code = EO#) 0.0 K/MM3 0.0-0.7 N BASOPHIL # (test code = BA#) 0.0 K/mm3 0.0-0.2 N BASIC METABOLIC [id number] 09:46:00* Test Item Value Reference Range Interpretation Comments SODIUM (test code = NA) 135 mmol/l 134.0-147.0 N POTASSIUM (test code = K) 4.7 mmol/L 3.6-5.2 N CHLORIDE (test code = CL) 103 mmol/l 98.0-107.0 N CARBON DIOXIDE (test code = CO2) 20.1 mmol/l 21.0-33.0 L ANION GAP (test code = GAP) 16.6 0-20 N GLUCOSE (test code = GLU) 147 mg/dl 70.0-110.0 H BLOOD UREA NITROGEN (test code = BUN) 44 mg/dl 7.0-18.0 H CREATININE (test code = CREAT) 1.55 mg/dL 0.60-1.30 H GFR NON BLACK (test code = GFRNONBLACK) 46 mL/min 70-80 L GFR BLACK (test code = GFRBLACK) 56 mL/min 85-97 L CALCIUM (test code = CA) 8.5 mg/dl 8.0-10.5 N Novel Coronavirus 2018 [id number] 14:31:00* Test Item Value Reference Range Interpretation Comments Novel Coronavirus 2019 nCoV (test code = COVID19) Positive Nega tive A Does patient have the clinical criteria consistent with COVID-19? YIs the patien t going to be discharged home? YBASIC METABOLIC [id number] 11:40:00* Test Item Value Reference Range Interpretation Comments SODIUM (test code = NA) 133 mmol/l 134.0-147.0 L POTASSIUM (test code = K) 4.3 mmol/L 3.6-5.2 N CHLORIDE (test code = CL) 100 mmol/l 98.0-107.0 N CARBON DIOXIDE (test code = CO2) 21.0 mmol/l 21.0-33.0 N ANION GAP (test code = GAP) 16.3 0-20 N GLUCOSE (test code = GLU) 154 mg/dl 70.0-110.0 H BLOOD UREA NITROGEN (test code = BUN) 63 mg/dl 7.0-18.0 H CREATININE (test code = CREAT) 2.24 mg/dL 0.60-1.30 H GFR NON BLACK (test code = GFRNONBLACK) 30 mL/min 70-80 L GFR BLACK (test code = GFRBLACK) 36 mL/min 85-97 L CALCIUM (test code = CA) 8.3 mg/dl 8.0-10.5 N CBC W/AUTO [id number] 11:40:00* Test Item Value Reference Range Interpretation Comments WHITE BLOOD CELL (test code = WBC) 3.9 K/mm3 4.5-11.0 L RED BLOOD CELL (test code = RBC) 3.62 M/mm3 4.40-5.90 L HEMOGLOBIN (test code = HGB) 11.8 gm/dL 13.0-17.0 L HEMATOCRIT (test code = HCT) 37.8 % 36.0-48.0 N MEAN CELL VOLUME (test code = MCV) 104.4 UM3 80.0-94.0 H MEAN CELL HGB (test code = MCH) 32.6 UUG 25.5-32.5 H MEAN CELL HGB CONCETRATION (test code = MCHC) 31.2 gm/dL 29.0-35. 5 N RED CELL DISTRIBUTION WIDTH (test code = RDW) 12.7 % 11.5-15. 0 N RED CELL DISTRIBUTION WIDTH SD (test code = RDW-SD) 49.2 fL 34 .8-50.2 N PLATELET COUNT (test code = PLT) 121 K/mm3 150-400 L MEAN PLATELET VOLUME (test code = MPV) 12.3 fl 7.4-10.4 H NEUTROPHIL % (test code = NT%) 66.6 % 49.0-76.0 N IMMATURE GRANULOCYTE % (test code = IG%) 0.3 % 0.0-0.4 N LYMPHOCYTE % (test code = LY%) 23.8 % 23.0-38.0 N MONOCYTE % (test code = MO%) 8.8 % 1.0-10.0 N EOSINOPHIL % (test code = EO%) 0.0 % 1.0-5.0 L BASOPHIL % (test code = BA%) 0.5 % 0.0-1.0 N NEUTROPHIL # (test code = NT#) 2.6 K/mm3 2.4-6.3 N IMMATURE GRANULOCYTE # (test code = IG#) 0.01 x10 3/uL 0.00-0.07 N LYMPHOCYTE # (test code = LY#) 0.9 K/mm3 1.2-4.0 L MONOCYTE # (test code = MO#) 0.3 K/mm3 0.0-0.6 N EOSINOPHIL # (test code = EO#) 0.0 K/MM3 0.0-0.7 N BASOPHIL # (test code = BA#) 0.0 K/mm3 0.0-0.2 N [id number] 09:00:00* Test Item Value Reference Range Interpretation Comments [id number] (test code = [id number]) POSITIVE Negative A Note: this entry is for TRACKING purposes only and the testwas done outside [facility], the performing entity isfound in specimen comments.Note: this entry is for TRACKING purposes only and the testwas done outside [facility], the performing entity isfound in specimen comments. The [facility] facility: [id number] patient's current lab results are: Positive - XR CHEST 1 [id number] 17:05:00 FAX: Mack Resendez [phone] [place]: B St: REG Name: EAGLE WILLSON [facility] : [birth year] Age[facility]S: 79/M [address] [id number] Loc: [place] [address] Phys: Mack Durant MD Acct: [id number] Dis Date: Status: REG ER PHONE #: [phone] Exam Date: 09/17/2019 1625 FAX #: [phone] Reason: SHORTNESS OF BREATH EXAMS: CPT CODE: [id number] XR CHEST 1 V [id number] REASON FOR EXAM: SHORTNESS OF BREATH EXAM ORDER DATE: 09/17/2019 3:41 PM Ordering: Mack Durant MD Attending:Mack Durant MD Location:[facility] PROCEDURE: - XR CHEST 1 V COMPARISON: 09/14/2019 FINDINGS: Portable AP frontal view of the chest obtained at 4:14 PM shows clear lungs without evidence of consolidation. There is no evidence of effusion. The heart size is within normal limits. Pulmonary va sculatures are unremarkable. IMPRESSION: No active disease. at 1705 Reported and signed by: Filipe Samuels M.D. CC: Mack Bella MD Technologist: RT VICTORIA(R) Trnscrd Date/Time/By: 09/17/2019 (4453) : By: RickeyVTL Orig Print D/T: S: 09/17/2019 (0229) PAGE 1 Signed Report LACTIC [id number] 17:01:00* Test Item Value Reference Range Interpretation Comments LACTIC ACID (test code = LACT) 2.2 mmol/L 0.4-1.9 HH Results called to V.LAB. 09/17/19 1701Critical results verified and read back by Nurse? YES B-TYPE NATRIURETIC [id number] 16:43:00* Test Item Value Reference Range Interpretation Comments B-TYPE NATRIURETIC PEPTIDE (test code = BNP) 6.32 pgram/mL 0-100 N COVID 19 INHOUSE [id number] 16:31:00* Test Item Value Reference Range Interpretation Comments COVID 19 INHOUSE AG (test code = [id number]) POSITIVE BASIC METABOLIC [id number] 16:27:00* Test Item Value Reference Range Interpretation Comments SODIUM (test code = NA) 134 mmol/L 136-145 L POTASSIUM (test code = K) 4.6 mmol/L 3.5-5.1 N CHLORIDE (test code = CL) 102.0 mmol/L 98-107 N CARBON DIOXIDE (test code = CO2) 22.0 mmol/L 21-32 N ANION GAP (test code = GAP) 14.6 10-20 N GLUCOSE (test code = GLU) 140 mg/dL 74-106 H BLOOD UREA NITROGEN (test code = BUN) 65 mg/dL 7-18 H GLOMERULAR FILTRATION RATE (test code = GFR) 24 mL/min >=60 Estimated GFR by using Modified MDRD formula.Chronic kidney disease is defined as either kidney damageor GFR <60 mL/min/1.73 m2 for >3 months. CREATININE (test code = CREAT) 2.60 mg/dL 0.7-1.3 H BUN/CREATININE RATIO (test code = BUN/CREA) 25.2 10-20 H CALCIUM (test code = CA) 8.8 mg/dL 8.5-10.1 N HEPATIC FUNCTION [id number] 16:27:00* Test Item Value Reference Range Interpretation Comments TOTAL PROTEIN (test code = PROT) 8.4 gram/dL 6.4-8.2 H ALBUMIN (test code = ALB) 3.9 g/dL 3.4-5.0 N GLOBULIN (test code = GLOB) 4.5 gram/dL 2.7-4.2 H ALBUMIN/GLOBULIN RATIO (test code = A/G) 0.9 0.75-1.50 N BILIRUBIN TOTAL (test code = BILT) 0.70 mg/dL 0.0-1.0 N BILIRUBIN DIRECT (test code = BILD) 0.23 mg/dL 0.0-0.20 H SGOT/AST (test code = AST) 36 IUnit/L 15-37 N SGPT/ALT (test code = ALT) 41 IUnit/L 12-78 N ALKALINE PHOSPHATASE TOTAL (test code = ALKP) 66 IUnit/L 45-117 N Note change in reference range due to change in reagent. LACTIC DEHYDROGENASE(LDH)2019-09-17 16:27:00* Test Item Value Reference Range Interpretation Comments LACTIC DEHYDROGENASE(LDH) (test code = LDH) 190 IUnit/L 84-246 N [id number] 16:27:00* Test Item Value Reference Range Interpretation Comments LIPASE (test code = LIP) 308 U/L 73.0-393.0 N [id number] 16:27:00* Test Item Value Reference Range Interpretation Comments TROPONIN-I (test code = TROPI) <0.015 ng/mL 0-0.045 N [id number] 16:27:00* Test Item Value Reference Range Interpretation Comments FERRITIN (test code = SASKIA) 1403 ng/mL 8-388 H C REACTIVE [id number] 16:22:00* Test Item Value Reference Range Interpretation Comments C REACTIVE PROTEIN (test code = CRP) 7.89 mg/dL 0-0.3 H BASIC METABOLIC [id number] 16:22:00* Test Item Value Reference Range Interpretation Comments SODIUM (test code = NA) 134 mmol/L 136-145 L POTASSIUM (test code = K) 4.6 mmol/L 3.5-5.1 N CHLORIDE (test code = CL) 102.0 mmol/L 98-107 N CARBON DIOXIDE (test code = CO2) mmol/L 21-32 ANION GAP (test code = GAP) 10-20 GLUCOSE (test code = GLU) mg/dL 74-106 BLOOD UREA NITROGEN (test code = BUN) mg/dL 7-18 GLOMERULAR FILTRATION RATE (test code = GFR) mL/min >=60 CREATININE (test code = CREAT) mg/dL 0.7-1.3 BUN/CREATININE RATIO (test code = BUN/CREA) 10-20 CALCIUM (test code = CA) mg/dL 8.5-10.1 HEPATIC FUNCTION [id number] 16:22:00* Test Item Value Reference Range Interpretation Comments TOTAL PROTEIN (test code = PROT) gram/dL 6.4-8.2 ALBUMIN (test code = ALB) g/dL 3.4-5.0 GLOBULIN (test code = GLOB) gram/dL 2.7-4.2 ALBUMIN/GLOBULIN RATIO (test code = A/G) 0.75-1.50 BILIRUBIN TOTAL (test code = BILT) mg/dL 0.0-1.0 BILIRUBIN DIRECT (test code = BILD) mg/dL 0.0-0.20 SGOT/AST (test code = AST) IUnit/L 15-37 SGPT/ALT (test code = ALT) IUnit/L 12-78 ALKALINE PHOSPHATASE TOTAL (test code = ALKP) IUnit/L 45-117 LACTIC DEHYDROGENASE(LDH)2019-09-17 16:22:00* Test Item Value Reference Range Interpretation Comments LACTIC DEHYDROGENASE(LDH) (test code = LDH) IUnit/L 84-246 [id number] 16:22:00* Test Item Value Reference Range Interpretation Comments LIPASE (test code = LIP) U/L 73.0-393.0 [id number] 16:22:00* Test Item Value Reference Range Interpretation Comments TROPONIN-I (test code = TROPI) ng/mL 0-0.045 [id number] 16:22:00* Test Item Value Reference Range Interpretation Comments FERRITIN (test code = SASKIA) ng/mL 8-388 PROTHROMBIN [id number] 16:17:00* Test Item Value Reference Range Interpretation Comments PROTHROMBIN TIME PATIENT (test code = PTP) 12.5 seconds 9.0-14.0 N INTERNATIONAL NORMAL RATIO (test code = INR) 1.1 0.8-1.2 N The therapeutic range for oral anticoagulant therapy formost indications is an international normalized ratio (INR)of between 2.0 and 3.0. The recommended therapeutic INRrange for various clinical situations is listed below: Clinical Situation INR range Pulmonary e mbolism treatment (2.0-3.0)Venous thrombosis treatmentVenous thrombosis prophylaxis (high risk surgery)Prevention of systemic embolism from: Acute myocardial infarction Valvular heart disease Atrial fibrillation Mechanical prosthetic heart valves (2.5-3.5) IS PATIENT ON ANTICOAGULANTS? NTHROMBOPLASTIN TIME [id number] 16:17:00* Test Item Value Reference Range Interpretation Comments THROMBOPLASTIN TIME PARTIAL (test code = PTT) 36.7 seconds 23.0-37. 0 N IS PATIENT ON ANTICOAGULANTS? NURINALYSIS [id number] 16:15:00* Test Item Value Reference Range Interpretation Comments UA COLOR (test code = COLU) YELLOW YELLOW UA APPEARANCE (test code = APPU) CLEAR CLEAR UA GLUCOSE DIPSTICK (test code = DGLUU) NEGATIVE mg/dL NEGATIVE UA BILIRUBIN DIPSTICK (test code = BILU) NEGATIVE mg/dL NEGATIVE UA KETONE DIPSTICK (test code = KETU) NEGATIVE mg/dL NEGATIVE UA SPECIFIC GRAVITY (test code = SGU) 1.017 1.001-1.035 UA BLOOD DIPSTICK (test code = NICK) Negative mg/dL NEGATIVE UA PH DIPSTICK (test code = GILBERTO) 5.0 5.0-8.0 UA PROTEIN DIPSTICK (test code = PROU) 30 (1+) mg/dL NEGATIVE A UA UROBILINIOGEN DIPSTICK (test code = URO) Normal mg/dL NEGATIVE UA NITRITE DIPSTICK (test code = MILTON) NEGATIVE NEGATIVE UA LEUKOCYTE ESTERASE W REFLEX (test code = LEUUR) NEGATIVE Zohra/uL NEGATIVE UA WBC (test code = WBCU) per HPF 0-5 UA RBC (test code = RBCU) per HPF 0-5 UA EPITHELIAL CELLS (test code = EPIU) per HPF Few UA BACTERIA (test code = BACU) per HPF NONE Urine Source? Clean CatchURINALYSIS [id number] 16:15:00* Test Item Value Reference Range Interpretation Comments UA COLOR (test code = COLU) YELLOW YELLOW UA APPEARANCE (test code = APPU) CLEAR CLEAR UA GLUCOSE DIPSTICK (test code = DGLUU) NEGATIVE mg/dL NEGATIVE UA BILIRUBIN DIPSTICK (test code = BILU) NEGATIVE mg/dL NEGATIVE UA KETONE DIPSTICK (test code = KETU) NEGATIVE mg/dL NEGATIVE UA SPECIFIC GRAVITY (test code = SGU) 1.017 1.001-1.035 UA BLOOD DIPSTICK (test code = NICK) Negative mg/dL NEGATIVE UA PH DIPSTICK (test code = GILBERTO) 5.0 5.0-8.0 UA PROTEIN DIPSTICK (test code = PROU) 30 (1+) mg/dL NEGATIVE A UA UROBILINIOGEN DIPSTICK (test code = URO) Normal mg/dL NEGATIVE UA NITRITE DIPSTICK (test code = MILTON) NEGATIVE NEGATIVE UA LEUKOCYTE ESTERASE W REFLEX (test code = LEUUR) NEGATIVE Zohra/uL NEGATIVE UA WBC (test code = WBCU) 0-5 per HPF 0-5 UA RBC (test code = RBCU) 0-2 #/HPF 0-5 UA EPITHELIAL CELLS (test code = EPIU) Few (2-5/hpf) per HPF FEW UA BACTERIA (test code = BACU) FEW #/HPF NONE UA HYALINE CAST (test code = HYALU) 0-2 #/LPF 0-5 UA MUCUS (test code = MUCU) FEW #/LPF FEW Urine Source? Clean CatchCBC W/AUTO [id number] 16:07:00* Test Item Value Reference Range Interpretation Comments WHITE BLOOD CELL (test code = WBC) 6.5 K/mm3 4.5-12.5 N RED BLOOD CELL (test code = RBC) 3.96 mill/mm3 4.0-5.8 L HEMOGLOBIN (test code = HGB) 13.0 gram/dL 13.0-17.5 N HEMATOCRIT (test code = HCT) 37.9 % 42.0-52.0 L MEAN CELL VOLUME (test code = MCV) 95.7 fL 80-98 N MEAN CELL HGB (test code = MCH) 32.8 picogram 27.0-33.0 N MEAN CELL HGB CONCETRATION (test code = MCHC) 34.3 gram/dL 33.0-36. 0 N RED CELL DISTRIBUTION WIDTH (test code = RDW) 12.5 % 11.6-16. 2 N RED CELL DISTRIBUTION WIDTH SD (test code = RDW-SD) 44.3 fL 37 .0-51.0 N PLATELET COUNT (test code = PLT) 157 K/mm3 150-450 N MEAN PLATELET VOLUME (test code = MPV) 11.0 fL 6.7-11.0 N NEUTROPHIL % (test code = NT%) 68.0 % 39.0-69.0 N IMMATURE GRANULOCYTE % (test code = IG%) 0.3 % 0.0-5.0 N LYMPHOCYTE % (test code = LY%) 19.0 % 25.0-55.0 L MONOCYTE % (test code = MO%) 12.4 % 0.0-10.0 H EOSINOPHIL % (test code = EO%) 0.0 % 0.0-5.0 N BASOPHIL % (test code = BA%) 0.3 % 0.0-1.0 N NUCLEATED RBC % (test code = NRBC%) 0.0 % 0-0 N NEUTROPHIL # (test code = NT#) 4.43 K/mm3 1.8-7.7 N IMMATURE GRANULOCYTE # (test code = IG#) 0.02 x10 3/uL 0-0.03 N LYMPHOCYTE # (test code = LY#) 1.24 K/mm3 1.0-5.0 N MONOCYTE # (test code = MO#) 0.81 K/mm3 0-0.8 H EOSINOPHIL # (test code = EO#) 0.00 K/mm3 0.0-0.5 N BASOPHIL # (test code = BA#) 0.02 K/mm3 0.0-0.2 N NUCLEATED RBC # (test code = NRBC#) 0.00 K/mm3 0.0-0.1 N MANUAL DIFF REQUIRED (test code = MDIFF) NO STREPTOCOCCUS PCR [id number] 07:55:00* Test Item Value Reference Range Interpretation Comments STREPTOCOCCUS DYSGALACTIAE (test code = STREPGC) NEGATIVE FOR G/C N EGATIVE STREPA MOLECULAR (test code = STREPAMOL) NEGATIVE FOR GRP A NEGATIV E - XR CHEST 1 [id number] 21:07:00 Name: EAGLE CASTILLO [facility] : 1940 Age/S:79 /M [address] [facility] Unit#:[id number] Loc: [place] [address] Phys: Jen Carvajal MD Dis Date: PHONE #: [phone] Status: REG ER FAX #: [phone] Exam Date: 09/14/2019 Reason: POSSIBLE COVID EXAMS: CPT CODE: [id number] XR CHEST 1 V 93724 EXAM: Chest x-ray, one view; INFORMATION: Possible Covid; FINDINGS: Bilateral elevation of diaphragm. Slightly increased basilar densities probably representing atelectatic changes; no definite infiltrates. No obvious effusions; Unremarkable cardiac mediastinal silhouette. IMPRESSION: 1. Mild basilar atelectatic changes. 2. No definite infiltrates. Location code: [facility] at 2107 Reported and signed by: Shayan Recinos M.D. CC: Technologist: MORENITA GRIFFIN RT(R),RDMS,CT Trnscrpt Data: 09/14/2019 (2106) RickeyGRW Orig Print D/T: S: 09/14/2019 (2109) PAGE 1 Signed Report - XR T-SPINE 3 [id number] 12:02:00Patient Name: EAGLE CASTILLO Unit No: [id number] EXAMS: CPT: [id number] XR T-SPINE 3 [id number] EXAMINATION: Thoracic spine 3 views INDICATION: Neck pain COMPARISON:None FINDINGS: Vertebral bodies normal in height and alignment. No acute fracture- dislocation is seen. Included portions of the lungs are unremarkable. IMPRESSION: No acute abnormality is seen. EXAMINATION:Cervical Spine 5 views. INDICATION: Neck pain COMPARISON:None FINDINGS: AP, lateral, oblique and open-mouth odontoid views of the cervical spine. Vertebral bodies normal in height and alignment. There is no acute fracture or d islocation. No focal osseous lesions are evident. No prevertebral soft t issue swelling. Advanced disc space narrowing at C6-7. Multilevel facet arthropathy is present throughout the cervical spine. IMPRESSION: No acute abnormality seen of the cervical spine. Advanced disc space narrowing at C6-7. Multilevel facet arthropathy is present throughout the cervical spine. Recommend CT or MRI. at 1202 Reported and signed by: Keli Smallwood MD CC: Wyatt Coker MD Technologist: Radha Fraser Time: DAP (Gy m2): Air Kerma (mGy): Trscr Dt/Tm: 02/07/2019 (1202) by:[email or web address] Orig Print D/T: S: 02/07/2019 (6695) BATCH NO: N/A Name: EAGLE CASTILLO [facility] Phys: Wyatt Schmidt MD [address] [facility] : 1940 Age: 78 Sex: M [place], [place] [address] Loc: N.RAD Exam Date: 02/07/2019 Status: REG CLI PH: FAX: PAGE 1 Signed Report - XR C-SPINE 4-5 [id number] 12:02:00Patient Name: EAGLE CASTILLO Unit No: [id number] EXAMS: CPT: [id number] XR C-SPINE 4-5 V [id number] EXAMINATION: Thoracic spine 3 views INDICATION: Neck pain COMPARISON:None FINDINGS: Vertebral bodies normal in height and alignment. No acute fracture- dislocation is seen. Included portions of the lungs are unremarkable. IMPRESSION: No acute abnormality is seen. EXAMINATION:Cervical Spine 5 views. INDICATION: Neck pain COMPARISON:None FINDINGS: AP, lateral, oblique and open-mouth odontoid views of the cervical spine. Vertebral bodies normal in height and alignment. There is no acute fracture or d islocation. No focal osseous lesions are evident. No prevertebral soft t issue swelling. Advanced disc space narrowing at C6-7. Multilevel facet arthropathy is present throughout the cervical spine. IMPRESSION: No acute abnormality seen of the cervical spine. Advanced disc space narrowing at C6-7. Multilevel facet arthropathy is present throughout the cervical spine. Recommend CT or MRI. at 1202 Reported and signed by: Keli Smallwood MD CC: Wyatt Coker MD Technologist: Radha Fraser Time: DAP (Gy m2): Air Kerma (mGy): Trscr Dt/Tm: 02/07/2019 (1202) by:[email or web address] Orig Print D/T: S: 02/07/2019 (1205) BATCH NO: N/A Name: EAGLE CASTILLO [facility] Phys: Wyatt Schmidt MD [address] : 1940 Age: 78 Sex: M [place], [place] [address] Loc: N.RAD Exam Date: 02/07/2019 Status: REG CLI PH: FAX: PAGE 1 Signed Report
--- OUTSIDE RECORDS SUMMARY | 2019-09-28 18:56 | XMS REPORT | Continuity of Care Document ---
Author Author [facility] t Organization [facility] Address [address] [place] [address] Phone Unavailable Care Team Providers Care Chamber Worker Name Role Phone Enrico MELTON Attphys Unavailable Enrico MELTON Admphys Unavailable Payers Payer Name Policy Type Policy Number Effective Date Expiration Date S ource Problems This patient has no known problems. Allergies, Adverse Reactions, Alerts Allergy Name Allergy Type Status Severity Reaction(s) Onset Date Inacti ve Date Treating Clinician Comments Source No Known Allergies DA Active U 2019-09-17 00:00:00 [facility] No Known Allergies DA Active U 2019-02-20 00:00:00 [facility] Medications This patient has no known medications. Procedures This patient has no known procedures. Results Test Description Test Time Test Comments Results Result Comments Source CHEST SINGLE (PORTABLE) 2019-09-27 08:45:00 [facility] [address] [place], [place] [address] Patient Name: EAGLE CASTILLO MR #: [id number] : 1940 Age/Sex: 79/M Req #: [id number] Adm Physician: ALEJO MELTON MD Ordered by: FERNANDA BLUM MD Report #: [id number] Location: ICU Room/Bed: ICU [facility] Procedure: [id number] DX/CHEST SINGLE (PORTABLE) Exam Date: 09/27/19 Exam [...] BLUM MD CHEST SINGLE (PORTABLE) 2019-09-26 08:32:00 [place] [address] Patient Name: EAGLE CASTILLO MR #: [id number] : 1940 Age/Sex: 79/M Req #: [id number] [facility] Physician: ALEJO MELTON MD Ordered by: FERNANDA BLUM MD Report #: [id number] Location: ICU Room/Bed: ICU 196 Procedure: [id number] DX/CHEST SINGLE (PORTABLE) Exam Date: 09/26/19 Exam [...] BLUM MD CHEST SINGLE (PORTABLE) 2019-09-24 15:25:00 [place] [address] Patient Name: EAGLE CASTILLO MR #: [id number] : 1940 Age/Sex: 79/M Req #: [id number] Adm Physician: Ordered by: JEFF CAMPBELL MD Report #: [id number] Location: ER Room/Bed: Procedure: [id number] DX/CHEST SINGLE (PORTABLE) Exam Date: 09/24/19 Exam [...] COPY TO: JEFF CAMPBELL MD CXR 1 [facility] 2019-09-24 13:38:00 [place] [address] Patient Name: EAGLE CASTILLO MR #: [id number] : 1940 Age/Sex: 79/M Req #: [id number] Adm Physician: Ordered by: ALEJANDRO YU MD Report #: [id number] Location: [facility] Room/Bed: Procedure: [id number] HOPD/CXR 1 [facility] Exam Date: 09/24/19 Exam Time: 1333 REPORT STATUS: Signed EXAMINATION: CXR 1 [facility] INDICATION: Shortness of breath, cough COMPARISON: None [...] BA#) 0.0 K/mm3 0.0-0.2 N BASIC METABOLIC [id number] 09:46:00* Test Item Value Reference Range Interpretation [...] 8.5 mg/dl 8.0-10.5 N Novel Coronavirus 2018 [id number] 14:31:00* Test Item Value Reference Range Interpretation Comments Novel Coronavirus 2019 nCoV (test code = COVID19) Positive Nega tive A Does patient have the clinical criteria consistent with COVID-19? YIs the patien t going to be discharged home? YBASIC METABOLIC [id number] 11:40:00* Test Item Value Reference Range Interpretation [...] CA) 8.3 mg/dl 8.0-10.5 N CBC W/AUTO [id number] 11:40:00* Test Item Value Reference Range Interpretation [...] code = BA#) 0.0 K/mm3 0.0-0.2 N [id number] 09:00:00* Test Item Value Reference Range Interpretation Comments [id number] (test code = [id number]) POSITIVE Negative A Note: this entry is for TRACKING purposes only and the testwas done outside [facility], the performing entity isfound in specimen comments.Note: this entry is for TRACKING purposes only and the testwas done outside [facility], the performing entity isfound in specimen comments. [facility]'s [facility] number from [facility]: [id number] patient's current lab results are: Positive - XR CHEST 1 [id number] 17:05:00 FAX: Mack Resendez [phone] [place]: [address]: REG Name: EAGLE WILLSON [facility] : [birth year] Age/S: 79/M [address] [facility] #: [id number] Loc: [place] [address] Phys: Mack Durant MD Acct: [id number] Dis Date: Status: REG ER PHONE #: [phone] Exam Date: 09/17/2019 1625 FAX #: [phone] Reason: SHORTNESS OF BREATH EXAMS: CPT CODE: [id number] XR CHEST 1 V [id number] REASON FOR EXAM: SHORTNESS OF BREATH EXAM ORDER DATE: 09/17/2019 3:41 PM Ordering: Mack Durant MD Attending:Mack Durant MD Location:[facility] PROCEDURE: - XR CHEST 1 V COMPARISON: [...] MD Technologist: RT VICTORIA(R) Trnscrd Date/Time/By: 09/17/2019 (2475) : By: RickeyVTL Orig Print D/T: S: 09/17/2019 (7765) PAGE 1 Signed Report LACTIC [id number] 17:01:00* Test Item Value Reference Range Interpretation Comments LACTIC ACID (test code = LACT) 2.2 mmol/L 0.4-1.9 HH Results called to V.LAB. 09/17/19 1701Critical results verified and read back by Nurse? YES B-TYPE NATRIURETIC [id number] 16:43:00* Test Item Value Reference Range Interpretation Comments B-TYPE NATRIURETIC PEPTIDE (test code = BNP) 6.32 pgram/mL 0-100 N COVID 19 INHOUSE [id number] 16:31:00* Test Item Value Reference Range Interpretation Comments COVID 19 INHOUSE AG (test code = [id number]) POSITIVE BASIC METABOLIC [id number] 16:27:00* Test Item Value Reference Range Interpretation [...] CA) 8.8 mg/dL 8.5-10.1 N HEPATIC FUNCTION [id number] 16:27:00* Test Item Value Reference Range Interpretation [...] code = LDH) 190 IUnit/L 84-246 N [id number] 16:27:00* Test Item Value Reference Range Interpretation Comments LIPASE (test code = LIP) 308 U/L 73.0-393.0 N [id number] 16:27:00* Test Item Value Reference Range Interpretation Comments TROPONIN-I (test code = TROPI) <0.015 ng/mL 0-0.045 N [id number] 16:27:00* Test Item Value Reference Range Interpretation Comments FERRITIN (test code = SASKIA) 1403 ng/mL 8-388 H C REACTIVE [id number] 16:22:00* Test Item Value Reference Range Interpretation Comments C REACTIVE PROTEIN (test code = CRP) 7.89 mg/dL 0-0.3 H BASIC METABOLIC [id number] 16:22:00* Test Item Value Reference Range Interpretation [...] code = CA) mg/dL 8.5-10.1 HEPATIC FUNCTION [id number] 16:22:00* Test Item Value Reference Range Interpretation [...] DEHYDROGENASE(LDH) (test code = LDH) IUnit/L 84-246 [id number] 16:22:00* Test Item Value Reference Range Interpretation Comments LIPASE (test code = LIP) U/L 73.0-393.0 [id number] 16:22:00* Test Item Value Reference Range Interpretation Comments TROPONIN-I (test code = TROPI) ng/mL 0-0.045 [id number] 16:22:00* Test Item Value Reference Range Interpretation Comments FERRITIN (test code = SASKIA) ng/mL 8-388 PROTHROMBIN [id number] 16:17:00* Test Item Value Reference Range Interpretation [...] (2.5-3.5) IS PATIENT ON ANTICOAGULANTS? NTHROMBOPLASTIN TIME [id number] 16:17:00* Test Item Value Reference Range Interpretation Comments THROMBOPLASTIN TIME PARTIAL (test code = PTT) 36.7 seconds 23.0-37. 0 N IS PATIENT ON ANTICOAGULANTS? NURINALYSIS [id number] 16:15:00* Test Item Value Reference Range Interpretation [...] per HPF NONE Urine Source? Clean CatchURINALYSIS [id number] 16:15:00* Test Item Value Reference Range Interpretation [...] #/LPF FEW Urine Source? Clean CatchCBC W/AUTO [id number] 16:07:00* Test Item Value Reference Range Interpretation [...] (test code = MDIFF) NO STREPTOCOCCUS PCR [id number] 07:55:00* Test Item Value Reference Range Interpretation Comments STREPTOCOCCUS DYSGALACTIAE (test code = STREPGC) NEGATIVE FOR G/C N EGATIVE STREPA MOLECULAR (test code = STREPAMOL) NEGATIVE FOR GRP A NEGATIV E - XR CHEST 1 [id number] 21:07:00 Name: EAGLE CASTILLO [facility] : 1940 Age/S:79 /M [address] [facility] Unit#:[id number] Loc: [place] [address] Phys: Jen Carvajal MD Dis Date: PHONE #: [phone] Status: REG ER FAX #: [phone] Exam Date: 09/14/2019 Reason: POSSIBLE COVID EXAMS: CPT CODE: [id number] XR CHEST 1 V [id number] EXAM: Chest x-ray, one view; INFORMATION: Possible [...] 1 Signed Report - XR T-SPINE 3 [id number] 12:02:00Patient Name: EAGLE CASTILLO Unit No: [id number] EXAMS: CPT: [id number] XR T-SPINE 3 VIEWS [id number] EXAMINATION: Thoracic spine 3 views INDICATION: Neck [...] (1202) by:[email or web address] Orig Print D/T: S: 02/07/2019 (6125) BATCH NO: N/A Name: EAGLE CASTILLO [facility] Phys: Wyatt Schmidt MD [address] [facility] : 1940 Age: 78 Sex: M [place], [place] [address] Loc: N.RAD Exam Date: 02/07/2019 Status: REG CLI PH: FAX: PAGE 1 Signed Report - XR C-SPINE 4-5 [id number] 12:02:00Patient Name: EAGLE CASTILLO Unit No: [id number] EXAMS: CPT: [id number] XR C-SPINE 4-5 V 45974 EXAMINATION: Thoracic spine 3 views INDICATION: Neck [...] (1205) BATCH NO: N/A Name: EAGLE CASTILLO [facility] Phys: Wyatt Schmidt MD [address] : 1940 Age: 78 Sex: M [place], [place] [address] Loc: N.RAD Exam Date: 02/07/2019 Status: REG CLI PH: FAX: PAGE 1 Signed Report
--- NOTE | 2019-09-28 23:31 | Progress Note ---
DATE: 09/28/2019 Medicine Progress Note SUBJECTIVE: The patient this morning was severely tachypneic, requiring significant amount of oxygen and would desaturate in the 70s, in which he had to be intubated by Pulmonary Critical Care. He is now on a mechanical ventilator. Family was updated about his status. PHYSICAL EXAMINATION: VITAL SIGNS: Temperature is 97.7, pulse 68, respiratory rate is 30, blood pressure is 161/39, pulse ox 100% on a mechanical ventilator. GENERAL: He is now intubated and sedated. PULMONARY: Intubated and sedated. CARDIOVASCULAR: Positive S1 and S2. No murmurs, rubs, or gallops appreciated. ABDOMEN: Soft, nondistended, nontender to palpation. Bowel sounds present. MUSCULOSKELETAL: Unable to assess. NEUROLOGICAL: Unable to assess. SKIN: Intact, warm to touch. Good cap refill. EXTREMITIES: No edema appreciated. LABORATORY FINDINGS: Show white count was 15.8, hemoglobin 11, hematocrit 32, and platelets of 306. Chemistry; sodium 140, potassium 4.6, chloride 106, bicarb 25, anion gap of 13, BUN is 32, creatinine is 0.83, and glucose is 125. MICROBIOLOGY: Blood cultures, no growth. Sputum cultures, no growth. IMAGING STUDIES: Abdominal x-ray shows termination of the enteric tube in the proximal duodenum. Chest x-ray performed shows ET tube and right IJ central venous catheter in good position. ET tube in the proximal duodenum. Interval increase in bilateral multifocal patchy airspace opacities, consistent with provided history of viral pneumonia. IMPRESSION: 1. Acute respiratory failure, now intubated and sedated secondary to viral pneumonia. 2. Coronavirus disease 2019 pneumonia. 3. Acute kidney injury. 4. Metabolic acidosis. PLAN: At this time, the patient deteriorated this morning. He was very tachypneic and oxygen saturation in the 70s, in which the patient had to be intubated. He will continue on steroids, antibiotics, high doses of vitamins, and continue on the ventilator. ID and Pulmonary Critical Care are following. Get morning labs. Lovenox for DVT prophylaxis. The patient's family was updated and he is now in critical condition. Koby Candelaria MD JSD/MODL /[id number]
[2019-09-29] VITALS (17 sets, daily range): BP systolic 106–170; BP diastolic 35–53
[2019-09-29] MEDS: FENTANYL 2000MCG/NS 250 250 ML IV PRN ×2 (00:59→22:22)
[2019-09-29 05:36] LABS: BASOPHILS # (AUTO) 0.1 (0.0-0.1); BASOPHILS % 0.2 % (0.0-1.0); HEMATOCRIT 30.9 % (38.2-49.6); HEMOGLOBIN 10.4 g/dL (14.0-18.0); LYMPHOCYTES # (AUTO) 0.4 (1.0-3.2); LYMPHOCYTES % 1.9 % (18.0-39.1); MEAN CORPUSCULAR HGB CONC 33.7 g/dL (31-35); MEAN CORPUSCULAR VOLUME 98.1 fL (81-99); MONOCYTES # (AUTO) 0.3 (0.2-0.8); MONOCYTES % 1.3 % (4.4-11.3); NEUTROPHILS # (AUTO) 20.9 (2.1-6.9); PLATELET COUNT 412 x10e3/uL (140-360); RED BLOOD COUNT 3.15 x10e6/uL (4.3-5.7); RED CELL DISTRIBUTION WIDTH 13.1 % (11.7-14.4)
[2019-09-29 05:57] LABS: ALANINE AMINOTRANSFERASE 74 IU/L (0-55); ALBUMIN 1.9 g/dL (3.5-5.0); ALBUMIN/GLOBULIN RATIO 0.4 (0.8-2.0); ALKALINE PHOSPHATASE 60 IU/L (40-150); ANION GAP 15.5 mmol/L (8-16); BLOOD UREA NITROGEN 41 mg/dL (7-26); BUN/CREATININE RATIO 38 (6-25); CALCIUM 8.7 mg/dL (8.4-10.2); CARBON DIOXIDE 24 mmol/L (22-29); CHLORIDE 107 mmol/L (98-107); CREATININE, SERUM 1.09 mg/dL (0.72-1.25); EST GLOMERULAR FILTRATION RATE > 60 ML/MIN (60-); GLUCOSE 146 mg/dL (74-118); POTASSIUM 4.5 mmol/L (3.5-5.1); SODIUM 142 mmol/L (136-145)
[2019-09-29] MEDS: MIDAZOLAM HCL 5MG/ML 10ML VIAL 100 ML IV PRN (06:00)
--- NOTE | 2019-09-29 09:29 | Diagnostic Imaging Report ---
EXAMINATION: CHEST SINGLE (PORTABLE) INDICATION: Respiratory failure. COMPARISON: Multiple prior chest x-rays including most recent on 09/28/2019 FINDINGS: TUBES and LINES: Stable support lines and tubes. LUNGS: No significant interval change in multifocal airspace opacities. PLEURA: No pleural effusion or pneumothorax. HEART AND MEDIASTINUM: The cardiomediastinal silhouette is unchanged. BONES AND SOFT TISSUES: No acute osseous or soft tissue finding. UPPER ABDOMEN: No free air under the diaphragm. IMPRESSION: 1. Stable support lines and tubes. 2. No significant interval change in multifocal airspace opacities consistent with known history of viral pneumonia. Signed by: Francisco Harvey MD on 09/29/2019 9:26 AM
[2019-09-29] MEDS: DEXAMETHASONE SOD PHOS INJ 4 MG/ML VIAL IV SCH (09:41)
[2019-09-29] MEDS: MEROPENEM 1GM 100 ML IV SCH ×2 (09:41→21:48)
[2019-09-29] MEDS: ENOXAPARIN 30 MG/0.3 ML SYR SC SCH ×2 (09:41→21:48)
--- NOTE | 2019-09-29 10:03 | Operative Report ---
DATE OF PROCEDURE: SURGEON: Иван Martinez MD PROCEDURE: Arterial line placement under ultrasound guidance. PREOPERATIVE DIAGNOSES: Acute renal insufficiency, hypotension, and respiratory failure. POSTOPERATIVE DIAGNOSES: Acute renal insufficiency, hypotension, and respiratory failure. CONSENT: Consent was obtained from the family. MEDICATIONS: The patient was on Versed and fentanyl at the time of the procedure. DESCRIPTION OF PROCEDURE: The right wrist was prepped sterilely with chlorhexidine. Sterile drapes, sterile gown, and sterile gloves were used along with a mask. The radial artery was visualized with the ultrasound machine. The radial artery was cannulated under direct visualization with a 20-gauge needle. A 20-gauge Angiocath was then passed over the needle by the Seldinger technique. COMPLICATIONS: None. ESTIMATED BLOOD LOSS: 5 mL. Иван Martinez MD LMH/MODL /[id number]
--- NOTE | 2019-09-29 10:08 | Progress Note ---
DATE: Pulmonary Critical Care Progress Note SUBJECTIVE: The patient is intubated. He is on a PRVC at a rate of 28 with a tidal volume of 370. His FiO2 is set at 90%. His PEEP is set at 12. He still remains on Levophed at 5 mcg. He is on Versed and fentanyl for sedation. PHYSICAL EXAMINATION: VITAL SIGNS: The patient's blood pressure is 160/45, saturation is 100% on the above settings and his pulse is 56. He has an oral endotracheal tube. He has a right IJ line. The site is clean. He has an arterial line. CARDIAC: Regular rate and rhythm with normal S1, S2. LUNGS: Auscultation of lungs reveals crackles at the bases. There is no wheezing. ABDOMEN: Soft, nontender. There is no rebound or guarding. EXTREMITIES: No leg edema or calf tenderness. LABORATORY DATA: Albumin is 1.9. BUN to creatinine ratio is 41 to 1.09. Other electrolytes are within normal limits. Glucose is 146. The white blood cell count is 22.2 and hemoglobin is 10.4. The platelet count is 412. Blood gas 7.33, 28, 74, and 14. RADIOGRAPHIC DATA: Chest x-ray shows multifocal airspace disease. IMPRESSION: 1. Acute respiratory failure. 2. Viral pneumonia and coronavirus disease-19 infection. 3. Acute kidney injury. 4. Mixed metabolic acidosis and respiratory alkalosis. 5. Diabetes. 6. Viral hepatitis. PLAN: 1. Continue current ventilator settings and repeat ABG. Wean ventilator as tolerated. 2. Wean patient off Levophed. 3. Continue current antibiotics. 4. Complete dexamethasone. 5. Begin enteral feedings. 6. Lovenox. Case discussed with the daughter, nursing, Respiratory, Infectious Disease, and Internal Medicine. Greater than 35 minutes in direct critical care time apart from any procedures performed. Иван Martinez MD [facility]/MODL /[id number]
[2019-09-29 10:47] LABS: ABG PCO2 44 mmHg (35-45); ABG PH 7.38 (7.35-7.45); ABG PO2 102 mmHg (80-105)
[2019-09-29 10:48] LABS: ABG HCO3 26 mmol/L (22-26); ABG TCO2 28
[2019-09-29] MEDS ORDERED: WATER STERILE 10 ML VIAL ONE (13:44)
[2019-09-29] MEDS ORDERED: ETOMIDATE 40 MG/ 20ML VIAL IV ONE (13:44)
[2019-09-29] MEDS ORDERED: MIDAZOLAM HCL 2 MG/2 ML VIAL ONE (13:44)
[2019-09-29] MEDS ORDERED: VECURONIUM BROMIDE FOR INJ 20 MG VIAL ONE (13:44)
[2019-09-29] MEDS ORDERED: SUCCINYLCHOLINE CHLORIDE 20 MG/ML 10ML VIAL ONE (13:44)
[2019-09-29] MEDS: NOREPINEPHRINE 8 MG/D5W 250 ML 250 ML IV SCH (18:00)
--- NOTE | 2019-09-29 18:17 | NUR ---
INFECTIOUS DISEASE PROGRESS NOTE DR. LUIS DODSON He is now on a mechanical ventilator. PHYSICAL EXAMINATION: VITAL SIGNS: The patient is afebrile. HEENT: No facial swelling or erythema. There is an oral endotracheal tube. There is a right IJ line. The site is clean. CARDIAC: Regular rate and rhythm with normal S1, S2. LUNGS: Auscultation of lungs reveals crackles at the bases. There is no wheezing. ABDOMEN: Soft, nontender. There is no rebound or guarding. There is no leg edema or calf tenderness. There is no cyanosis or clubbing. SKIN: No rashes. NEUROLOGICAL: No focal abnormalities. LABORATORY DATA: White blood cell count is 15.9, hemoglobin is 11 and the platelet count is 306. The BUN to creatinine ratio is improved to 32/0.83. The other electrolytes are within normal limits. ALT is elevated at 72 and AST is 48. Albumin is 2.0. RADIOLOGY: reviewed LABS: reviewed IMPRESSION: 1. coronavirus disease-19 infection. 2. Acute respiratory failure. 3. Acute kidney injury. 4. Diabetes. 5. PNA PLAN: on Merrem on Lovenox supportive care Poor prognosis PT SEEN AND EXAMINED BY DR. SMITH
--- NOTE | 2019-09-29 20:43 | NUR ---
Nutrition Intervention Note RD Recommendation(s) for Physician: -Rec switching to a high protein peptide formula, Vital HP @goal rate of 50ml/hr, providing 1200kcal, 105g protein, 1003ml water -Check for GI tolerance, labs and daily weight -BG and insulin management per MD Plan of Care: RD following, monitoring for tolerance and adequacy, TF rec Nutrition reason for involvement: LOS, new TF RD Assessment 09/28 79yo M, who was admitted for COVID PNA. Currently ventilated and intubated. TF order was placed this morning. Levophed has turned down to 5mcg/min. Pt is on Fentanyl and Versed for sedation. No past medical record in [facility]. Principal Problems/Diagnoses: 1. Acute respiratory failure. 2. Viral pneumonia and COVID-19. PMH: Hypertension, hyperlipidemia, heart disease I/O: +515ml / -600ml GI: abdomen soft, non-tender, round + flatus Skin: intact Labs: (09/28) BUN 41 H, AST 43 H, ALT 74 H Meds: (09/28) Lovenox, meropenem, fentanyl, levophed @5mcg Ht: 65in Wt: 205lb BMI: 34.1kg/m2 IBW: 136lb +/-10% Malnutrition Evaluation (09/28) Unable to evaluate at this time, due to COVID protocol. Nutrition Prescription (Diet Order): Glucerna 1.2 @30ml/hr Estimated Nutritional Needs: Calories: 1023 1302kcal(11-14kcal/kg) Weight used: CBW Protein: 111 186g(1.2-2g/kg) Weight used: CBW Diet Adequacy: Not meeting calorie needs, Not meeting protein needs Tolerance: Tolerance pending Diet Education Needs Assessment: Diet education not indicated, patient on temporary/transition diet. Nutrition Care Level: moderate Nutrition Diagnosis: Inadequate oral intake related to current medical status (vent) as evidenced by pt requiring EN as main source of nutrition. Goal: Patient will meet 75-100% of estimated needs by follow up Progress: n/a Interventions: Composition, Rate, Route Monitoring/Evaluation: Total energy intake, Total protein intake, Formula/Solution, Weight change Signed: Kenzie Carcamo, MS, RD, LD
[2019-09-30] VITALS (14 sets, daily range): BP systolic 125–163; BP diastolic 37–61
[2019-09-30] MEDS: NOREPINEPHRINE 8 MG/D5W 250 ML 250 ML IV SCH (00:50)
--- NOTE | 2019-09-30 01:31 | Progress Note ---
DATE: 09/29/2019 Medicine Progress Note SUBJECTIVE: The patient is intubated and sedated. No overnight events. PHYSICAL EXAMINATION: VITAL SIGNS: Temperature was 97.4, pulse 62, respiratory rate 24, blood pressure is 106/38, pulse ox 98%. He is on mechanical ventilator 100%. GENERAL: Intubated and sedated. PULMONARY: Intubated and sedated. CARDIOVASCULAR: Positive S1, S2. No murmurs, rubs, or gallops appreciated. ABDOMEN: Soft, nondistended, and nontender to palpation. Bowel sounds present. MUSCULOSKELETAL: Unable to assess. NEUROLOGIC: Unable to assess. SKIN. Intact. Warm to touch. Good cap refill. PSYCHIATRIC: Unable to assess. EXTREMITIES: No edema. Good range of motion throughout. LABORATORY DATA: Show white count is 22, hemoglobin 10, hematocrit 31, platelets of 412. Chemistry; sodium 142, potassium 4.5, chloride 107, bicarb 24, anion gap of 15, BUN , creatinine is 1, glucose is 146. Microbiology, all cultures were negative. IMAGING STUDIES: Chest x-ray still shows no change. Multifocal airspace opacities. IMPRESSION: 1. Acute respiratory failure intubated sedated secondary to COVID-19 pneumonia. 2. Viral pneumonia. 3. Acute kidney injury. 4. Metabolic acidosis. PLAN: At this time, the patient is currently intubated and sedated. His labs seem to be much more stable now. He is still requiring significant amount of oxygen. Continue with steroids, antibiotics, and high doses of vitamin. Continue following with ID and Pulmonary Critical Care, greatly appreciated. Get morning labs. Lovenox for DVT prophylaxis. MD SRIDHAR Manuel/MODL /[id number]
[2019-09-30] MEDS: MIDAZOLAM HCL 5MG/ML 10ML VIAL 100 ML IV PRN ×2 (04:25→22:30)
[2019-09-30 05:15] LABS: BASOPHILS % 0.2 % (0.0-1.0); EOSINOPHILS % 0.1 % (0.0-6.0); HEMATOCRIT 29.8 % (38.2-49.6); HEMOGLOBIN 9.7 g/dL (14.0-18.0); LYMPHOCYTES # (AUTO) 0.3 (1.0-3.2); LYMPHOCYTES % 2.1 % (18.0-39.1); MEAN CORPUSCULAR HEMOGLOBIN 33.4 pg (28-32); MEAN CORPUSCULAR HGB CONC 32.6 g/dL (31-35); MEAN CORPUSCULAR VOLUME 102.8 fL (81-99); MONOCYTES # (AUTO) 0.4 (0.2-0.8); MONOCYTES % 2.4 % (4.4-11.3); NEUTROPHILS % 93.5 % (38.7-80.0); PLATELET COUNT 307 x10e3/uL (140-360); RED CELL DISTRIBUTION WIDTH 13.1 % (11.7-14.4)
[2019-09-30 05:46] LABS: ALANINE AMINOTRANSFERASE 57 IU/L (0-55); ALBUMIN 1.8 g/dL (3.5-5.0); ALBUMIN/GLOBULIN RATIO 0.4 (0.8-2.0); ALKALINE PHOSPHATASE 47 IU/L (40-150); ANION GAP 12.1 mmol/L (8-16); BLOOD UREA NITROGEN 49 mg/dL (7-26); BUN/CREATININE RATIO 49 (6-25); CALCIUM 8.7 mg/dL (8.4-10.2); CARBON DIOXIDE 26 mmol/L (22-29); CHLORIDE 112 mmol/L (98-107); EST GLOMERULAR FILTRATION RATE > 60 ML/MIN (60-); GLUCOSE 141 mg/dL (74-118); POTASSIUM 5.1 mmol/L (3.5-5.1); SODIUM 145 mmol/L (136-145)
[2019-09-30] MEDS: DEXAMETHASONE SOD PHOS INJ 4 MG/ML VIAL IV SCH (08:43)
[2019-09-30] MEDS: MEROPENEM 1GM 100 ML IV SCH ×2 (08:43→19:48)
[2019-09-30] MEDS: ENOXAPARIN 30 MG/0.3 ML SYR SC SCH ×2 (08:43→20:44)
--- NOTE | 2019-09-30 09:39 | Diagnostic Imaging Report ---
EXAMINATION: CHEST SINGLE (PORTABLE) INDICATION: Respiratory failure. COMPARISON: Multiple prior chest x-rays including most recent on 09/29/2019. FINDINGS: TUBES and LINES: Stable endotracheal tube which terminates approximately 4 cm above the dulce, right IJ CVC which terminates in the cavoatrial junction and subdiaphragmatic enteric tube which courses beyond the epknf-yh-rqny. LUNGS: No significant interval change in multifocal interstitial and airspace opacities. PLEURA: No pleural effusion or pneumothorax. HEART AND MEDIASTINUM: The cardiomediastinal silhouette is unchanged. BONES AND SOFT TISSUES: No acute osseous or soft tissue finding. UPPER ABDOMEN: No free air under the diaphragm. IMPRESSION: 1. Stable support lines and tubes as above. 2. No significant interval change in multifocal interstitial and airspace opacities consistent with known history of viral pneumonia. Signed by: Francisco Harvey MD on 09/30/2019 9:36 AM
[2019-09-30 09:58] LABS: ABG HCO3 25 mmol/L (22-26); ABG PCO2 40 mmHg (35-45); ABG PH 7.42 (7.35-7.45); ABG PO2 66 mmHg (80-105); ABG TCO2 27
--- NOTE | 2019-09-30 13:13 | NUR ---
INFECTIOUS DISEASE PROGRESS NOTE DR. LUIS DODSON He is now on a mechanical ventilator. PHYSICAL EXAMINATION: VITAL SIGNS: The patient is afebrile. HEENT: No facial swelling or erythema. There is an oral endotracheal tube. There is a right IJ line. The site is clean. CARDIAC: Regular rate and rhythm with normal S1, S2. LUNGS: Auscultation of lungs reveals crackles at the bases. There is no wheezing. ABDOMEN: Soft, nontender. There is no rebound or guarding. There is no leg edema or calf tenderness. There is no cyanosis or clubbing. SKIN: No rashes. NEUROLOGICAL: No focal abnormalities. RADIOLOGY: reviewed LABS: reviewed IMPRESSION: 1. coronavirus disease-19 infection. 2. Acute respiratory failure. 3. Acute kidney injury. 4. Diabetes. 5. PNA 6. Leukocytosis PLAN: on Merrem on Lovenox supportive care Poor prognosis
[2019-09-30] MEDS: ROCURONIUM BROMIDE 250 MG in SODIUM CHLORIDE 0.9% 250ML 225 ML IV SCH ×2 (15:00→21:15)
[2019-09-30] MEDS ORDERED: ACETAZOLAMIDE 250 MG TAB PO SCH (15:00)
--- NOTE | 2019-09-30 16:09 | Progress Note ---
DATE: 09/30/2019 Medicine Progress Note SUBJECTIVE: The patient is still intubated and sedated. Still requiring significant amount of oxygen. PHYSICAL EXAMINATION: VITAL SIGNS: Temperature is 98.9, pulse 74, respirations 34, blood pressure 126/56, pulse ox 92%, he is on FiO2 of 80% on a mechanical ventilator. GENERAL: Intubated and sedated. PULMONARY: Intubated and sedated. CARDIOVASCULAR: Positive S1, S2. No murmurs, rubs, or gallops. GI: Abdomen is soft, nondistended, nontender to palpation. Bowel sounds present. MUSCULOSKELETAL: Unable to assess. He is on sedation. NEUROLOGIC: Sedated. SKIN: Intact. Warm to touch. Good cap refill. PSYCHIATRIC: Intubated and sedated. EXTREMITIES: No edema. Good range of motion throughout. LABORATORY DATA: Labs show white count was 14.9, hemoglobin 9.7, hematocrit is 29.8, and platelets of 307. Chemistry; sodium 145, potassium 5.1, chloride 112, bicarb 26, anion gap of 12, BUN 49, creatinine is 1. LFTs, noted. Cultures were negative. IMAGING STUDIES: Chest x-ray shows no significant interval change in the multifocal interstitial airspace opacities consistent with known history of viral pneumonia. IMPRESSION: 1. Acute respiratory failure, secondary to COVID-19 pneumonia. He is intubated and sedated. 2. Viral pneumonia. 3. Acute kidney injury. 4. Metabolic acidosis. PLAN: At this time, the patient continues to be intubated and sedated. He is on steroids, antibiotics, high doses of vitamins. He is still requiring significant amount of oxygen. Continue with same plan of care. Pulmonary Critical Care and ID are following. Family will continue with full code. Lovenox for DVT prophylaxis. MD SRIDHAR Manuel/MISAEL /[id number]
--- NOTE | 2019-09-30 16:54 | Progress Note ---
DATE: SUBJECTIVE: The patient remains on mechanical ventilation. He is not synchronized well with the vent. He is currently on a PRVC mode of ventilation. The patient is on vent on fentanyl and Versed. The patient is also receiving enteral feedings. PHYSICAL EXAMINATION: VITAL SIGNS: The patient is afebrile. The blood pressure is 163/61, saturation is 92%. The pulse is 74. HEENT: Shows no facial swelling or erythema. There is an oral endotracheal tube. There is an arterial line in place. The patient also has a PICC line. HEENT: Shows no facial swelling or erythema. CARDIAC: Reveals regular rate and rhythm with normal S1 and S2. LUNGS: Auscultation of lungs reveals rhonchorous breath sounds bilaterally. There is no wheezing. ABDOMEN: Soft, nontender. There is no rebound or guarding. EXTREMITIES: Shows no leg edema or calf tenderness. There is no cyanosis or clubbing. SKIN: Shows no rashes. LABORATORY DATA: White blood cell count is 14.9, hemoglobin is 9.7. The platelet count is 307. BUN to creatinine ratio is 49 to 1. The other electrolytes are within normal limits and the albumin is 1.8. IMPRESSION: 1. Acute respiratory failure. 2. Viral pneumonia and coronavirus disease-19 infection. 3. Acute kidney injury. 4. Diabetes. 5. Viral hepatitis. PLAN: 1. Begin rocuronium along with Versed and fentanyl. 2. Monitor ABGs and adjust ventilator as needed. 3. Continue current antibiotics. 4. Complete dexamethasone. 5. Continue Lovenox. 6. Continue enteral feedings. Greater than 35 minutes in direct critical care time apart from any procedures performed. Иван Martinez MD [facility]/MODL /[id number]
--- NOTE | 2019-09-30 17:44 | NUR ---
Soft limb restraints discontinued and removed from patient at 1500. Patient started on Hosea and need for restraints no longer needed. Addendum: 09/30/19 at 1746 by Gem Peres RN Amended: Links added.
[2019-09-30] MEDS ORDERED: FUROSEMIDE INJ 10 MG/ML 4 ML VIAL IV SCH (21:00)
[2019-10-01] VITALS (36 sets, daily range): BP systolic 103–143; BP diastolic 32–56
[2019-10-01] MEDS: NOREPINEPHRINE 8 MG/D5W 250 ML 250 ML IV SCH (01:00)
[2019-10-01] MEDS: FENTANYL 2000MCG/NS 250 250 ML IV PRN ×3 (01:40→21:25)
[2019-10-01] MEDS: ROCURONIUM BROMIDE 250 MG in SODIUM CHLORIDE 0.9% 250ML 225 ML IV SCH ×2 (04:00→09:22)
[2019-10-01 05:09] LABS: BASOPHILS % 0.2 % (0.0-1.0); HEMATOCRIT 31.9 % (38.2-49.6); LYMPHOCYTES # (AUTO) 0.2 (1.0-3.2); LYMPHOCYTES % 1.8 % (18.0-39.1); MEAN CORPUSCULAR HEMOGLOBIN 32.3 pg (28-32); MEAN CORPUSCULAR HGB CONC 31.3 g/dL (31-35); MEAN CORPUSCULAR VOLUME 102.9 fL (81-99); MONOCYTES # (AUTO) 0.4 (0.2-0.8); MONOCYTES % 3.8 % (4.4-11.3); NEUTROPHILS # (AUTO) 10.8 (2.1-6.9); NEUTROPHILS % 92.7 % (38.7-80.0); PLATELET COUNT 282 x10e3/uL (140-360); RED CELL DISTRIBUTION WIDTH 13.2 % (11.7-14.4)
[2019-10-01 06:03] LABS: ALANINE AMINOTRANSFERASE 55 IU/L (0-55); ALBUMIN 1.7 g/dL (3.5-5.0); ALBUMIN/GLOBULIN RATIO 0.4 (0.8-2.0); ALKALINE PHOSPHATASE 45 IU/L (40-150); ANION GAP 11.5 mmol/L (8-16); BLOOD UREA NITROGEN 47 mg/dL (7-26); BUN/CREATININE RATIO 45 (6-25); CALCIUM 8.4 mg/dL (8.4-10.2); CARBON DIOXIDE 28 mmol/L (22-29); CHLORIDE 113 mmol/L (98-107); CREATININE, SERUM 1.04 mg/dL (0.72-1.25); EST GLOMERULAR FILTRATION RATE > 60 ML/MIN (60-); GLUCOSE 151 mg/dL (74-118); POTASSIUM 5.5 mmol/L (3.5-5.1); SODIUM 147 mmol/L (136-145)
[2019-10-01] MEDS: MIDAZOLAM HCL 5MG/ML 10ML VIAL 100 ML IV PRN ×2 (06:16→21:25)
[2019-10-01] MEDS: DEXAMETHASONE SOD PHOS INJ 4 MG/ML VIAL IV SCH (08:11)
[2019-10-01] MEDS: ENOXAPARIN 30 MG/0.3 ML SYR SC SCH ×2 (08:11→20:38)
[2019-10-01] MEDS: MEROPENEM 1GM 100 ML IV SCH ×2 (08:11→20:38)
--- NOTE | 2019-10-01 09:51 | NUR ---
PT VS STABLE. CURRENTLY PRONED. VENTED ON FENT,VERSED,DC,LEVO
--- NOTE | 2019-10-01 10:34 | NUR ---
Lead Web Developer returned call from pt's daughter, Shanna, who asked for prayer for her dad. Pt's daughter states she has "rosalino that he will get out of ICU." and God has "always answered my prayers." Pt's daughter affirmed difficulty on family during pandemic with hospital visiting limitations. Provided empathic listening and prayer. Reminded pt's daughter of availability of medicaid collection specialist. Will continue to follow as able. ROBIN Buchanan [facility] Department O: [phone]
[2019-10-01 10:36] LABS: ABG PCO2 56 mmHg (35-45); ABG PO2 128 mmHg (80-105)
[2019-10-01 10:37] LABS: ABG HCO3 27 mmol/L (22-26); ABG TCO2 29
[2019-10-01 12:07] LABS: LYMPHOCYTES % (MANUAL) 1 % (19-48); MONOCYTES % (MANUAL) 1 % (3.4-9.0); NEUTROPHILS % (MANUAL) 98 % (40-74); PLATELET ESTIMATE ADEQUATE; PLATELET MORPHOLOGY COMMENT NORMAL; RBC MORPHOLOGY COMMENT NORMAL
--- NOTE | 2019-10-01 12:28 | Diagnostic Imaging Report ---
EXAMINATION: CHEST SINGLE (PORTABLE) INDICATION: Respiratory failure COMPARISON: Chest radiograph of 09/30/2019 FINDINGS: LINES/TUBES:Support lines and tubes unchanged. LUNGS:Lung volumes unchanged. Unchanged bilateral multifocal patchy opacities. PLEURA:No pleural effusion or pneumothorax. MEDIASTINUM:The cardiomediastinal silhouette appears unchanged in size and shape. BONES/SOFT TISSUES:No acute osseous injury. ABDOMEN:No free air under the diaphragm. IMPRESSION: No significant interval change. Signed by: Ken Cleaning MD on 10/01/2019 12:25 PM
[2019-10-01] MEDS ORDERED: FUROSEMIDE INJ 10 MG/ML 4 ML VIAL IV ONE (13:15)
--- NOTE | 2019-10-01 17:44 | Progress Note ---
DATE: SUBJECTIVE: The patient remains on the ventilator. He was flipped from the prone position to the supine position earlier today. He remains on fentanyl, rocuronium, and Versed. PHYSICAL EXAMINATION: VITAL SIGNS: The patient is afebrile. The blood pressure is 126/45 and the saturation is 99%. He is currently on a PRVC at a rate of 28 with a tidal volume of 380 and a PEEP of 12. His FiO2 is set at 70%. HEENT: Shows no facial swelling or erythema. There is an oral endotracheal tube. LYMPHATIC: Shows no submandibular, cervical, or supraclavicular adenopathy. CARDIAC: Reveals regular rate and rhythm with normal S1 and S2. LUNGS: Auscultation of lungs reveals decreased breath sounds at the bases. There is no wheezing. ABDOMEN: Soft and nontender. There is no rebound or guarding. EXTREMITIES: Shows no leg edema or calf tenderness. There is no cyanosis or clubbing. SKIN: Shows no rashes. LABORATORY DATA: Potassium is 5.5 and the BUN to creatinine ratio is 47 to 1.04. Albumin is 1.7. RADIOGRAPHIC DATA: Chest x-ray shows bilateral pulmonary infiltrates. IMPRESSION: 1. Acute respiratory failure. 2. Viral pneumonia and COVID-19 infection. 3. Acute kidney injury. 4. Diabetes. PLAN: 1. Continue Versed and fentanyl. 2. Wean off rocuronium. 3. Continue antibiotics. 4. Complete dexamethasone. 5. Lovenox. 6. Enteral feedings. Иван Martinez MD [facility]/MOD[facility] /[id number]
[2019-10-02] VITALS (26 sets, daily range): BP systolic 103–197; BP diastolic 33–65
--- NOTE | 2019-10-02 00:31 | Progress Note ---
DATE: 10/01/2019 Medicine Progress Note SUBJECTIVE: The patient is intubated and sedated. No overnight events. PHYSICAL EXAMINATION: VITAL SIGNS: Temperature 98.5, pulse 61, respiratory rate 20, blood pressure 127/41. He is on mechanical ventilator. FiO2 70%. GENERAL: Intubated and sedated. PULMONARY: Intubated and sedated. CARDIOVASCULAR: Positive S1, S2. No murmurs, rubs, or gallops. GI: Abdomen is soft, nondistended, and nontender to palpation. Bowel sounds present. MUSCULOSKELETAL: Unable to assess. Intubated and sedated. NEUROLOGIC: Intubated and sedated. SKIN: Intact. Warm to touch. Good cap refill. EXTREMITIES: No edema. Good range of motion throughout. LABORATORY FINDINGS: White count 11.6, hemoglobin 10, hematocrit 32, platelets of 282. Chemistry, sodium 147, potassium is 5.5, chloride 113, bicarbonate 20, anion gap of 11, BUN is 47 and creatinine is 1.04, glucose is 151. LFTs within normal range. MICROBIOLOGY: Blood cultures, urine cultures no growth to date. IMPRESSION: 1. Acute respiratory failure secondary to COVID-19 pneumonia, intubated, sedated on a mechanical ventilator. 2. Viral pneumonia. 3. Acute kidney injury with mild hyperkalemia. 4. Metabolic acidosis. PLAN: At this time, he is intubated and sedated, on rocuronium and sees a Pulmonary Critical Care would like to wean off the rocuronium. Continue with steroids antibiotics, high doses of vitamins. Give Lasix 40 mg IV once for the underlying hyperkalemia. Repeat labs in the morning. Pulmonary Critical Care and ID are following. Family wants to continue with full code. Lovenox for DVT prophylaxis. MD SRIDHAR Manuel/MISAEL /[id number]
[2019-10-02 05:21] LABS: BASOPHILS % 0.1 % (0.0-1.0); EOSINOPHILS % 0.1 % (0.0-6.0); HEMATOCRIT 31.7 % (38.2-49.6); HEMOGLOBIN 9.9 g/dL (14.0-18.0); LYMPHOCYTES # (AUTO) 0.3 (1.0-3.2); LYMPHOCYTES % 2.8 % (18.0-39.1); MEAN CORPUSCULAR HGB CONC 31.2 g/dL (31-35); MEAN CORPUSCULAR VOLUME 102.6 fL (81-99); MONOCYTES # (AUTO) 0.2 (0.2-0.8); MONOCYTES % 2.6 % (4.4-11.3); NEUTROPHILS # (AUTO) 8.2 (2.1-6.9); NEUTROPHILS % 93.2 % (38.7-80.0); PLATELET COUNT 227 x10e3/uL (140-360); RED BLOOD COUNT 3.09 x10e6/uL (4.3-5.7)
[2019-10-02 05:58] LABS: ALBUMIN 1.8 g/dL (3.5-5.0); ALBUMIN/GLOBULIN RATIO 0.4 (0.8-2.0); ANION GAP 11.5 mmol/L (8-16); CALCIUM 8.7 mg/dL (8.4-10.2); CREATININE, SERUM 1.23 mg/dL (0.72-1.25); POTASSIUM 5.5 mmol/L (3.5-5.1)
--- NOTE | 2019-10-02 07:30 | NUR ---
pt vs stable. currently on fent/vers drip.
[2019-10-02] MEDS: FENTANYL 2000MCG/NS 250 250 ML IV PRN ×2 (07:38→16:27)
[2019-10-02] MEDS: MIDAZOLAM HCL 5MG/ML 10ML VIAL 100 ML IV PRN ×2 (07:39→16:28)
--- NOTE | 2019-10-02 08:32 | Diagnostic Imaging Report ---
Examination: Single AP view of the chest. COMPARISON: 10/01/2019 INDICATION: Respiratory failure DISCUSSION: Endotracheal tube, enteric tube, and right internal jugular central venous catheter are unchanged in position. Lungs remain reasonably well inflated with unchanged hazy bilateral airspace opacities left worse than right. No sizable pleural effusion or pneumothorax. Stable cardiomediastinal contour. No acute osseous abnormalities. IMPRESSION: 1. Stable position of support lines and tubes. 2. No significant interval change in hazy bilateral airspace disease in keeping with multifocal pneumonia. Signed by: Dr. Haroon Saldivar M.D. on 10/02/2019 8:28 AM
[2019-10-02] MEDS: MEROPENEM 1GM 100 ML IV SCH ×2 (08:39→20:00)
[2019-10-02] MEDS: DEXAMETHASONE SOD PHOS INJ 4 MG/ML VIAL IV SCH (08:39)
[2019-10-02] MEDS: ENOXAPARIN 30 MG/0.3 ML SYR SC SCH ×2 (08:39→21:00)
[2019-10-02] MEDS: ACETAMINOPHEN 325 MG TAB PO PRN (08:40)
[2019-10-02 10:20] LABS: ABG HCO3 28 mmol/L (22-26); ABG PCO2 50 mmHg (35-45); ABG PH 7.36 (7.35-7.45); ABG PO2 86 mmHg (80-105); ABG TCO2 29
[2019-10-02] MEDS ORDERED: ACETAMINOPHEN 1000 MG/100 ML IV ONE (10:30)
--- NOTE | 2019-10-02 13:26 | NUR ---
pt temp increased to 102. made aware, orders recvd. [facility] vs [facility]
[2019-10-02] MEDS ORDERED: SODIUM CHLORIDE 0.9% 50ML 50 ML ONE (13:46)
[2019-10-02] MEDS ORDERED: IOPAMIDOL 370 MG/ML 200 ML INFUS..BTL INJ ONE (13:46)
--- NOTE | 2019-10-02 14:30 | NUR ---
WOUND CARE CONSULT FOR 79 YO MALE HX OF HYPOXIA, POOR TISSUE PERFUSION RELATED TO DEBILITATED STATE AND DISEASE PROCESS ZIGGY SCORE ON STRICT PUP STATUS AND INTERVENTIONS AND ALTERNATING PRESSURE MATTRESS RECOMMENDATIONS: NURSING TO CONTINUE TO MAINTAIN STRICT PUP STATUS AND INTERVENTIONS AND ALTERNATING PRESSURE MATTRESS AND FREQUENT TURN SCHEDULE MUCH CURRENT HEALTH DEBILITATIONS ALLOW CONTINUE SUPPORT FACIAL SURFACE MUCH POSSIBLE IF AND WHEN PRONE POSITIONING IS NECESSARY NURSING TO CONTINUE TO ASSIST PATIENT NEEDED WITH MEALS AND NUTRITIONAL SUPPLEMENTS TO ENSURE PROPER REQUIREMENTS FOR HEALING NURSING TO CONTINUE TO OFFLOAD FEET AND HEELS NEEDED WITH PILLOW SUSPENSION WHEN IN BED NURSING TO MAINTAIN PATIENT CLEAN AND DRY TO PREVENT MOISTURE INJURY NURSING TO MAINTAIN Q SHIFT AND PRN SKIN ASSESSMENT TO CONSISTENTLY DETECT AND MAINTAIN EARLY INTERVENTION OF SKIN ALTERATIONS OR PRESSURE INSULTS Addendum: 10/02/19 at 1431 by Celestino Mendieta RN Amended: Links added.
--- NOTE | 2019-10-02 14:50 | NUR ---
The patient is intubated and sedated. No overnight events. doing same on vent PHYSICAL EXAMINATION: VITAL SIGNS: Temperature 98.5, pulse 61, respiratory rate 20, blood pressure 127/41. He is on mechanical ventilator. FiO2 70%. GENERAL: Intubated and sedated. PULMONARY: Intubated and sedated. CARDIOVASCULAR: Positive S1, S2. No murmurs, rubs, or gallops. GI: Abdomen is soft, nondistended, and nontender to palpation. Bowel sounds present. MUSCULOSKELETAL: Unable to assess. Intubated and sedated. NEUROLOGIC: Intubated and sedated. SKIN: Intact. Warm to touch. Good cap refill. EXTREMITIES: No edema. Good range of motion throughout. LABORATORY FINDINGS: White count 11.6, hemoglobin 10, hematocrit 32, platelets of 282. Chemistry, sodium 147, potassium is 5.5, chloride 113, bicarbonate 20, anion gap of 11, BUN is 47 and creatinine is 1.04, glucose is 151. LFTs within normal range. MICROBIOLOGY: Blood cultures, urine cultures no growth to date. IMPRESSION: 1. Acute respiratory failure secondary to COVID-19 pneumonia, intubated, sedated on a mechanical ventilator. 2. Viral pneumonia. 3. Acute kidney injury with mild hyperkalemia. 4. Metabolic acidosis.
--- NOTE | 2019-10-02 15:13 | Diagnostic Imaging Report ---
CT of the abdomen and pelvis. Comparison: None Clinical History: Covid 19 pneumonia. Respiratory failure Technique: Helical CT scan of the abdomen and pelvis was performed. Intravenous contrast administration was utilized. Oral contrast administration was not utilized. Coronal and sagittal reconstructions were generated from the raw data. Multiple images were submitted for interpretation. This exam was performed according to our departmental dose-optimization program which includes automated exposure control, adjustment of the mA and/or kV according to patient size Discussion: Inferior chest: There is presence of bilateral diffuse interstitial infiltrates characterized by thickening of interlobular septa, interlobular septa, areas of groundglass opacification, patchy airspace consolidation and pneumatoceles formation. This is more prevalent in the peripheral lungs and posterior basal segments. There is no significant pleural effusion. There is no pneumothorax heart size normal. There is coronary artery calcification. This calcification of aortic valve ring. There is no pericardial effusion. Nasogastric tube is seen coursing down the expected past. Liver: Unremarkable Spleen: Unremarkable Pancreas: Unremarkable Biliary tree and gallbladder: Unremarkable Adrenal glands: Unremarkable Kidneys and ureters: Unremarkable Vasculature: Atherosclerotic calcification of the arterial system otherwise unremarkable Lymph nodes: No lymphadenopathy Bowel: Nasogastric tube has been mentioned above. There is a rectal monitor probe in place. The bowel otherwise unremarkable mild diverticulosis without diverticulitis is seen. This involves colon. Pelvis: Urinary bladder is unremarkable. There is a Parker catheter in place. Prostate unremarkable. Seminal vesicles unremarkable. Pelvic wall unremarkable. Peritoneum: Unremarkable. Perineal compartments: unremarkable. Fluid: No free fluid or air in the peritoneum. Bones: No aggressive bony lesions. Body wall: Unremarkable Impression: Multiple pulmonary findings consistent with the history of Covid pneumonia. No other significant intra-abdominal pathology seen. Signed by: Lawrence Linton MD on 10/02/2019 3:10 PM
--- NOTE | 2019-10-02 15:55 | NUR ---
CALL RECEIVED FROM DC COMMUNICATION SPECIALIST Preet DOMINGUEZ TO ASSIST W DC PLANNING; CARROLL @ [phone]
--- NOTE | 2019-10-02 16:03 | Progress Note ---
DATE: SUBJECTIVE: The patient is having fevers. He received IV Tylenol. The patient was re-cultured and is being continued on antibiotics. PHYSICAL EXAMINATION: VITAL SIGNS: The blood pressure is 118/45, saturation is 93%. He is on a PRVC mode of ventilation, rate of 24 with a tidal volume of 380 and FiO2 of 80% and a PEEP of 12. HEENT: Shows no facial swelling or erythema. There is an oral endotracheal tube. The patient has a nasogastric tube. CARDIAC: Reveals regular rate and rhythm with a normal S1 and S2. There are no murmurs or rubs. LUNGS: Auscultation of lungs reveals crackles at the bases. There is no wheezing. ABDOMEN: Soft and nontender. There is no rebound or guarding. EXTREMITIES: Shows no leg edema or calf tenderness. There is no cyanosis or clubbing. SKIN: Shows no rashes. NEUROLOGICAL: Shows no focal abnormalities. He is sedated. LABORATORY DATA: White blood cell count is 8.8 and hemoglobin is 9.9. The platelet count is 327. The BUN to creatinine ratio is 59 to 1.23. The sodium is 147 and the potassium is 5.5. The albumin is 1.8. IMPRESSION: 1. Acute respiratory failure. 2. Viral pneumonia and COVID-19 infection. 3. Acute kidney injury. 4. Diabetes. 5. Fevers. PLAN: 1. Continue current ventilator settings. 2. Monitor ABG. 3. Continue antibiotics. 4. Complete dexamethasone. 5. Lovenox. Иван Martinez MD [facility]/MOD[facility] /[id number]
--- NOTE | 2019-10-02 16:24 | Progress Note ---
DATE: SUBJECTIVE: Mr. Geller is intubated, sedated. His white count came down to normal. OBJECTIVE: VITAL SIGNS: Stable, afebrile. HEENT: He is not icteric. NECK: Supple. CHEST: Crackles. HEART: S1-S2. No murmurs. ABDOMEN: Soft. Bowel sounds present. EXTREMITIES: No edema. SKIN: No rash. IMPRESSION AND PLAN: Coronavirus disease-19, respiratory failure, and acute kidney injury. The patient to continue with supportive care. Continue with anticoagulation. He is on meropenem, to finish 7 days. Concern for aspiration. Recheck CBC. Recheck Chem panel. His white count is down to 8.8, hemoglobin 9.9, and platelet 227. Sodium 147, potassium 5.5, creatinine 1.23, and albumin 1.8. We will follow. MD SANTO [place]/MISAEL /[id number]
[2019-10-02] MEDS: ALBUMIN 25% 25GM 100ML 0.25 GM/ML BTL IV SCH ×2 (17:23→23:27)
--- NOTE | 2019-10-02 19:51 | Diagnostic Imaging Report ---
EXAMINATION: CT scan of the chest with contrast. TECHNIQUE: Helical CT images of the chest were performed from the lung apices to the level of the adrenal glands after the intravenous administration of 100 cc of Isovue 300. Coronal and sagittal reformatted images were obtained. Dose modulation, iterative reconstruction, and/or weight based adjustment of the mA/kV was utilized to reduce the radiation dose to as low as reasonably achievable. COMPARISON: None. CLINICAL HISTORY:Intubated DISCUSSION: LINES/TUBES: Endotracheal tube above the dulce in satisfactory position. Enteric tube distal tip duodenum. Right IJ catheter with tip in the SVC LUNGS AND AIRWAYS: Extensive groundglass opacities with areas of interstitial thickening. Architectural distortion in the lower lungs. Lung base atelectasis posteriorly. No pulmonary embolism. PLEURA: No pneumothorax or pleural effusions. HEART AND MEDIASTINUM: The thyroid gland is normal. Coronary stent. Atherosclerotic calcifications. LYMPH NODES: There is no mediastinal, hilar or axillary lymphadenopathy. ABDOMEN: Limited contrast-enhanced views of the upper abdomen show no abnormality within the visualized liver, spleen, pancreas, or kidneys. The adrenal glands are normal. BONES AND SOFT TISSUES: No acute bony abnormalities. IMPRESSION: No pulmonary embolism Extensive groundglass and interstitial opacities related to infection. Lung base architectural distortion/fibrotic change. Signed by: Dr. Mj Garrido M.D. on 10/02/2019 7:48 PM
[2019-10-02] MEDS ORDERED: FUROSEMIDE INJ 10 MG/ML 4 ML VIAL IV ONE (23:15)
[2019-10-03] VITALS (26 sets, daily range): BP systolic 104–137; BP diastolic 36–52
--- NOTE | 2019-10-03 01:36 | Progress Note ---
DATE: 10/02/2019 Medicine Progress Note SUBJECTIVE: The patient is still intubated and sedated. He is still requiring significant amount of oxygen 95% shown on pulse oximetry. The patient is seen and evaluated approximately 1 p.m. this afternoon. The patient had fever last night, prompting further evaluation. PHYSICAL EXAMINATION: VITAL SIGNS: Temperature is 97.8, pulse 79, respiratory rate is 24, blood pressure 118/48, and pulse ox is 95% on a mechanical ventilator. GENERAL: Intubated and sedated. CARDIOVASCULAR: Positive S1 and S2. No murmurs, rubs, or gallops appreciated. ABDOMEN: Soft, nondistended, and nontender to palpation. Bowel sounds present. MUSCULOSKELETAL: Unable to assess. NEUROLOGIC: Unable to assess, sedated. SKIN: Intact. Warm to touch. Good cap refill. EXTREMITIES: No edema. Good range of motion throughout. LABORATORY DATA: Show CBC reviewed. White count was 8. Chemistry reviewed shows sodium of 147, potassium is 5.5, chloride was 112, bicarbonate 29, anion gap of 11, BUN is 59, creatinine 1.523. LFTs, total bilirubin 0.5, AST 40, ALT was 79, albumin is 1.8. Urinalysis noted. SEROLOGIES: Nothing new. MICROBIOLOGY: His repeat blood cultures, sputum cultures, and urine cultures last night. IMPRESSION: 1. Acute respiratory failure secondary to coronavirus disease-2019 pneumonia, intubated and sedated on a mechanical ventilator. 2. Viral pneumonia. 3. Acute kidney injury with mild hyperkalemia. 4. Metabolic acidosis. PLAN: At this time, the patient is still intubated and sedated on rocuronium. Pulmonary/Critical Care is following and trying to wean off the rocuronium. Continue with steroids, antibiotics, high doses of vitamins. He did develop a fever last night, in which he is now being pancultured. In terms of his hyperkalemia, he is given 40 of IV Lasix. Get repeat labs in the morning. It seems per ID, the patient completed all antibiotic therapy, but now it has been restarted again. We will continue same plan of care. He is on Lovenox for anticoagulation. MD SRIDHAR Manuel/MISAEL /[id number]
[2019-10-03] MEDS: FENTANYL 2000MCG/NS 250 250 ML IV PRN ×3 (01:50→19:08)
[2019-10-03] MEDS: MIDAZOLAM HCL 5MG/ML 10ML VIAL 100 ML IV PRN ×3 (02:17→21:53)
[2019-10-03 05:05] LABS: BASOPHILS % 0.1 % (0.0-1.0); EOSINOPHILS % 0.4 % (0.0-6.0); HEMATOCRIT 26.1 % (38.2-49.6); HEMOGLOBIN 8.1 g/dL (14.0-18.0); LYMPHOCYTES # (AUTO) 0.5 (1.0-3.2); LYMPHOCYTES % 6.4 % (18.0-39.1); MEAN CORPUSCULAR VOLUME 103.2 fL (81-99); MONOCYTES # (AUTO) 0.2 (0.2-0.8); MONOCYTES % 2.8 % (4.4-11.3); NEUTROPHILS # (AUTO) 6.4 (2.1-6.9); NEUTROPHILS % 89.5 % (38.7-80.0); PLATELET COUNT 161 x10e3/uL (140-360); RED BLOOD COUNT 2.53 x10e6/uL (4.3-5.7); RED CELL DISTRIBUTION WIDTH 12.8 % (11.7-14.4)
[2019-10-03 05:20] LABS: ALBUMIN 2.7 g/dL (3.5-5.0); ALBUMIN/GLOBULIN RATIO 0.8 (0.8-2.0); ANION GAP 12.9 mmol/L (8-16); CALCIUM 9.2 mg/dL (8.4-10.2); CREATININE, SERUM 1.19 mg/dL (0.72-1.25); POTASSIUM 4.9 mmol/L (3.5-5.1)
[2019-10-03] MEDS: ALBUMIN 25% 25GM 100ML 0.25 GM/ML BTL IV SCH (05:36)
--- NOTE | 2019-10-03 06:31 | NUR ---
spoke with Estefany Martinez earlier while he was in hospital. Reminded that patient's HR has been maintaining around 140s. Dr. Martinez suggested to increase sedation since patient is on a paralytic. Patient's BP via arterial line drops when titrating sedation higher. HR at time of note is 138
[2019-10-03 08:11] LABS: ABG HCO3 30 mmol/L (22-26); ABG PCO2 47 mmHg (35-45); ABG PH 7.42 (7.35-7.45); ABG PO2 140 mmHg (80-105); ABG TCO2 32
[2019-10-03] MEDS: MEROPENEM 1GM 100 ML IV SCH ×2 (09:07→20:12)
[2019-10-03] MEDS: DEXAMETHASONE SOD PHOS INJ 4 MG/ML VIAL IV SCH (09:07)
[2019-10-03] MEDS: ENOXAPARIN 30 MG/0.3 ML SYR SC SCH ×2 (09:07→20:12)
--- NOTE | 2019-10-03 11:49 | NUR ---
Nutrition Intervention Note RD Recommendation(s) for Physician: -Please change TF to high protein peptide formula, Vital HP with goal rate of 50ml/hr, to provide 1200kcal, 105g protein. (Vital HP is a lower CHO formula appropriate for DM pts on vent to meet protein needs). -Water flushes/fluid management per MD. -BG and insulin management per MD. -Bowel regimen per MD. Plan of Care: RD following, monitoring for tolerance and adequacy, TF rec Nutrition reason for involvement: f/u RD Assessment 10/02: Follow up. Pt remains intubated and sedated, no Propofol and no pressor support. Pt continues on TF of Glucerna 1.2 at 25 ml/hr currently- not meeting needs. No BM documented. Current TF rec's remain appropriate. Chart reviewed. Will continue to monitor. 09/28 79yo M, who was admitted for COVID PNA. Currently ventilated and intubated. TF order was placed this morning. Levophed has turned down to 5mcg/min. Pt is on Fentanyl and Versed for sedation. No past medical record in [facility]. Principal Problems/Diagnoses: 1. Acute respiratory failure. 2. Viral pneumonia and COVID-19. PMH: Hypertension, hyperlipidemia, heart disease I/O: 2115/3250 GI: no BM documented Skin: L cheek wound Labs: 10/02: Na 148, K 4.9, BUN 63, Cr 1.19, Gluc 107, POC Gluc 127-210 (09/28) BUN 41 H, AST 43 H, ALT 74 H Meds: decadron, abx, colace, zofran IVF/Drips: Versed, Fentanyl Ht: 65in Wt: 189 lbs (10/02)- questionable wt change, 205lb (09/28) BMI: 34.1kg/m2 IBW: 136lb +/-10% Malnutrition Evaluation (09/28) Unable to evaluate at this time, due to COVID protocol. Nutrition Prescription (Diet Order): Glucerna 1.2 @30ml/hr (TF at 25 ml/hr providing 720 kcal and 45 gm protein) Estimated Nutritional Needs: Calories: 1023 1302kcal(11-14kcal/kg) Weight used: CBW Protein: 93-154g(1.5-2.5g/kg) Weight used: IBW Diet Adequacy: Not meeting calorie needs, Not meeting protein needs Tolerance: tolerating TF at low rate Diet Education Needs Assessment: Diet education not indicated, patient on temporary/transition diet. Nutrition Care Level: moderate Nutrition Diagnosis: Inadequate oral intake related to current medical status (vent) as evidenced by pt requiring EN as main source of nutrition. Goal: Patient will meet 75-100% of estimated needs by follow up Progress: not progressing Interventions: Composition, Rate, Route Monitoring/Evaluation: Total energy intake, Total protein intake, Formula/Solution, Weight change Signed: Hazel Lechuga RD, LD, CNSC
--- NOTE | 2019-10-03 15:09 | Progress Note ---
DATE: SUBJECTIVE: Mr. Geller remains in intensive care unit. This is day #9. The patient is intubated, sedated, still on oxygen 95%. OBJECTIVE: VITAL SIGNS: Temperature 97.8, heart rate 79, respirations 24, blood pressure 118/48, on the ventilator. HEENT: Normocephalic. NECK: Supple. CHEST: Crackles. HEART: S1, S2. ABDOMEN: Soft. Bowel sounds present. LABORATORY DATA: Reviewed. White count 8. Sodium 147, potassium 5.5. REVIEW OF SYSTEMS: Could not be obtained. Events noted. IMPRESSION AND PLAN: Respiratory failure, coronavirus disease-19 viral pneumonia, acute kidney injury, and metabolic acidosis. Continue with supportive care. He is currently on Lovenox. He is on dexamethasone, today day #9/10. He is also on meropenem, we will discontinue. We will follow. MD SANTO [place]/MODL /[id number]
[2019-10-03] MEDS ORDERED: VECURONIUM BROMIDE FOR INJ 20 MG VIAL ONE (18:22)
--- NOTE | 2019-10-03 18:53 | NUR ---
Patient asynchronous with the ventilator; Vecuronium 20 mg IV one time dise given per Dr Marie Martinez.
--- NOTE | 2019-10-03 20:40 | Progress Note ---
DATE: SUBJECTIVE: The patient remains on a mechanical ventilator. He is on a PRVC mode of ventilation at a rate of 28 with a tidal volume of 400 and a PEEP of 10. His FiO2 is set at 60%. He is still on fentanyl and Versed. PHYSICAL EXAMINATION: VITAL SIGNS: Blood pressure is 110/42, saturation is in the low 90s on the above settings. HEENT: Shows no facial swelling or erythema. There is an oral endotracheal tube. There is a right IJ line. The site looks clean. There is no drainage. CARDIAC: Reveals regular rate and rhythm with normal S1 and S2. LUNGS: Auscultation of lungs reveals crackles at the bases. There is no wheezing. ABDOMEN: Soft and nontender. There is no rebound or guarding. EXTREMITIES: Show no leg edema or calf tenderness. There is no cyanosis or clubbing. SKIN: Shows no rashes. NEUROLOGICAL: Shows no focal abnormalities. The patient is sedated. LABORATORY DATA: White blood cell count is 7.2, hemoglobin is 8.1, and platelet count is 161. The BUN to creatinine ratio is 63 and 1.19. The other electrolytes are within normal limits. Albumin is 2.7. RADIOGRAPHIC DATA: CT scan of the chest shows no pulmonary embolism. There is extensive ground-glass and interstitial infiltrates. IMPRESSION: 1. Acute respiratory failure. 2. Viral pneumonia and coronavirus disease 2019 infection. 3. Acute kidney injury. 4. Diabetes. 5. Fevers. PLAN: 1. Continue mechanical ventilation and monitor ABG. 2. Decrease oxygen as tolerated. 3. Continue current antibiotics. 4. Complete dexamethasone. 5. Lovenox. 6. Prognosis remains poor. Greater than 35 minutes in direct critical care time. Иван Martinez MD [facility]/MODL /[id number]
[2019-10-03 21:39] LABS: ABG HCO3 29 mmol/L (22-26); ABG PCO2 49 mmHg (35-45); ABG PH 7.38 (7.35-7.45); ABG PO2 58 mmHg (80-105)
[2019-10-03 21:40] LABS: ABG TCO2 31
[2019-10-04] VITALS (28 sets, daily range): BP systolic 88–130; BP diastolic 36–51
--- NOTE | 2019-10-04 01:00 | Progress Note ---
DATE: 10/03/2019 Medicine Progress Note SUBJECTIVE: The patient is still intubated and sedated. No overnight events. PHYSICAL EXAMINATION: VITAL SIGNS: Temperature 99.3, pulse 76 respiratory rate is 31, blood pressure 124/38. He is on a pulse ox 100% on ventilator, FiO2 70%. GENERAL: Intubated and sedated. CARDIOVASCULAR: Positive S1 and S2. No murmurs, rubs, or gallops appreciated. ABDOMEN: Soft, nondistended, and nontender to palpation. Bowel sounds present. MUSCULOSKELETAL: Unable to assess. The patient is intubated and sedated. NEUROLOGIC: Intubated and sedated. SKIN: Intact. Warm to touch. Good cap refill. EXTREMITIES: Trace edema appreciated. LABORATORY DATA: Show white count 7, hemoglobin 8, hematocrit is 26, platelets of 161. Chemistry; sodium 148, potassium 4.9, chloride 110, bicarb 30, anion gap 12, BUN 63, creatinine 1.1. MICROBIOLOGY: Repeat blood cultures, no growth. Sputum cultures, no growth. Urine cultures, no growth. IMPRESSION: 1. Acute respiratory failure secondary to coronavirus pneumonia, intubated and sedated on a mechanical ventilator. 2. Viral pneumonia. 3. Acute kidney injury with mild hyperkalemia-resolved. 4. Metabolic acidosis-resolved. 5. Mild hypernatremia. PLAN: At this time, the patient is still intubated and sedated on rocuronium. Pulmonary/Critical Care is following accordingly and appreciate their assistance. ID is following. Continue with steroids, antibiotics, high doses of vitamins. Continue to follow recommendations from all the consultants. Lovenox for DVT prophylaxis. MD SRIDHAR Manuel/MODL /[id number]
[2019-10-04 04:46] LABS: BASOPHILS % 0.1 % (0.0-1.0); EOSINOPHILS % 0.3 % (0.0-6.0); HEMATOCRIT 26.9 % (38.2-49.6); HEMOGLOBIN 8.2 g/dL (14.0-18.0); LYMPHOCYTES # (AUTO) 0.6 (1.0-3.2); MEAN CORPUSCULAR HEMOGLOBIN 31.2 pg (28-32); MEAN CORPUSCULAR HGB CONC 30.5 g/dL (31-35); MEAN CORPUSCULAR VOLUME 102.3 fL (81-99); MONOCYTES # (AUTO) 0.3 (0.2-0.8); MONOCYTES % 3.8 % (4.4-11.3); NEUTROPHILS % 87.8 % (38.7-80.0); PLATELET COUNT 152 x10e3/uL (140-360); RED BLOOD COUNT 2.63 x10e6/uL (4.3-5.7); RED CELL DISTRIBUTION WIDTH 12.9 % (11.7-14.4)
[2019-10-04 05:08] LABS: ALANINE AMINOTRANSFERASE 41 IU/L (0-55); ALBUMIN 2.7 g/dL (3.5-5.0); ALBUMIN/GLOBULIN RATIO 0.8 (0.8-2.0); ALKALINE PHOSPHATASE 54 IU/L (40-150); ANION GAP 11.3 mmol/L (8-16); BLOOD UREA NITROGEN 64 mg/dL (7-26); BUN/CREATININE RATIO 56 (6-25); CALCIUM 9.3 mg/dL (8.4-10.2); CARBON DIOXIDE 29 mmol/L (22-29); CHLORIDE 114 mmol/L (98-107); CREATININE, SERUM 1.14 mg/dL (0.72-1.25); EST GLOMERULAR FILTRATION RATE > 60 ML/MIN (60-); GLUCOSE 109 mg/dL (74-118); POTASSIUM 5.3 mmol/L (3.5-5.1); SODIUM 149 mmol/L (136-145)
[2019-10-04] MEDS: FENTANYL 2000MCG/NS 250 250 ML IV PRN ×3 (06:17→23:44)
[2019-10-04] MEDS: MEROPENEM 1GM 100 ML IV SCH (07:56)
[2019-10-04] MEDS: MIDAZOLAM HCL 5MG/ML 10ML VIAL 100 ML IV PRN ×3 (08:24→23:45)
--- NOTE | 2019-10-04 08:33 | Diagnostic Imaging Report ---
EXAM: CHEST SINGLE (PORTABLE) DATE: 10/04/2019 5:20 AM INDICATION: Intubated, viral pneumonia COMPARISON: 10/02/2019 FINDINGS: Endotracheal tube and right IJ coursing nontunneled central venous catheter identified in stable position. Enteric tube noted coursing below the diaphragm. The trachea is midline. Again identified are increased interstitial and patchy airspace opacities throughout the lungs bilaterally, similar to the prior examination. There is no evidence for pneumothorax or significant volume pleural effusion. The cardiomediastinal silhouette is stable in appearance. No acute osseous abnormality is identified. IMPRESSION: No significant interval change from 10/02/2019. Grossly stable appearing interstitial and airspace opacities identified throughout the lungs bilaterally which can be seen in the setting of a multifocal/viral infectious process. Signed by: Dr. Donovan Fields MD on 10/04/2019 8:29 AM
[2019-10-04] MEDS: ENOXAPARIN 30 MG/0.3 ML SYR SC SCH ×2 (09:02→21:18)
[2019-10-04 09:17] LABS: ABG HCO3 29 mmol/L (22-26); ABG PCO2 47 mmHg (35-45); ABG PO2 69 mmHg (80-105); ABG TCO2 30
--- NOTE | 2019-10-04 10:02 | Progress Note ---
DATE: Pulmonary Critical Care Progress Note. SUBJECTIVE: The patient is currently on mechanical ventilation with PRVC mode of ventilation. The patient continues to require Versed and fentanyl. PHYSICAL EXAMINATION: VITAL SIGNS: The patient is afebrile, the blood pressure is 127/40, saturation is 94% on a PRVC with a rate of 34 and FiO2 of 70. The patient's tidal volume is set at 380 and a PEEP of 12. There is no facial swelling or erythema. There is an oral endotracheal tube. The patient has a right IJ line. The site is clean. There is no drainage. CARDIAC: Reveals regular rate and rhythm with normal S1, S2. LUNGS: Auscultation of lungs reveals crackles at the bases. There is no wheezing. ABDOMEN: Soft and nontender. There is no rebound or guarding. EXTREMITIES: Shows no leg edema or calf tenderness. There is no cyanosis or clubbing. SKIN: Shows no rashes. NEUROLOGICAL: Shows no focal abnormalities. LABORATORY DATA: White blood cell count is 7.98, hemoglobin is 8.2, the platelet count is 152. The BUN to creatinine ratio is 64 to 1.14. Sodium is 149 and the potassium is 5.3. Blood sugars are 125 to 130. Blood gases 7.4, 47, 69, and 29. RADIOGRAPHIC DATA: Chest x-ray shows bilateral infiltrates. IMPRESSION: 1. Acute respiratory failure. 2. Viral pneumonia and COVID-19 infection. 3. Acute kidney injury. 4. Hypernatremia. 5. Diabetes. 6. Hyperkalemia. PLAN: 1. Continue current ventilator settings and monitor ABGs. 2. Continue Lovenox. 3. Continue current antibiotics. 4. Continue enteral feedings. 5. Continue fentanyl and Versed. 6. Judicious use of intravenous fluids. 7. Complete dexamethasone. 8. Prognosis remains poor. Greater than 35 minutes in direct critical care time. Иван Martinez MD [facility]/MODL /[id number]
[2019-10-04] MEDS ORDERED: SODIUM CHLORIDE 0.45% 500 ML IV ONE (10:30)
[2019-10-04] MEDS: ACETAMINOPHEN 325 MG TAB PO PRN (12:38)
--- NOTE | 2019-10-04 15:38 | NUR ---
e patient is currently on mechanical ventilation with PRVC mode of ventilation. The patient continues to require Versed and fentanyl. PHYSICAL EXAMINATION: VITAL SIGNS: The patient is afebrile, the blood pressure is 127/40, saturation is 94% on a PRVC with a rate of 34 and FiO2 of 70. The patient's tidal volume is set at 380 and a PEEP of 12. There is no facial swelling or erythema. There is an oral endotracheal tube. The patient has a right IJ line. The site is clean. There is no drainage. CARDIAC: Reveals regular rate and rhythm with normal S1, S2. LUNGS: Auscultation of lungs reveals crackles at the bases. There is no wheezing. ABDOMEN: Soft and nontender. There is no rebound or guarding. EXTREMITIES: Shows no leg edema or calf tenderness. There is no cyanosis or clubbing. SKIN: Shows no rashes. NEUROLOGICAL: Shows no focal abnormalities. LABORATORY DATA: White blood cell count is 7.98, hemoglobin is 8.2, the platelet count is 152. The BUN to creatinine ratio is 64 to 1.14. Sodium is 149 and the potassium is 5.3. Blood sugars are 125 to 130. Blood gases 7.4, 47, 69, and 29. RADIOGRAPHIC DATA: Chest x-ray shows bilateral infiltrates.
--- NOTE | 2019-10-04 18:00 | Progress Note ---
DATE: SUBJECTIVE: Mr. Geller remains in the intensive care unit, intubated and sedated. OBJECTIVE: VITAL SIGNS: Stable, afebrile. HEENT: He is not icteric. NECK: Supple. CHEST: Crackles. HEART: S1, S2. No murmurs. ABDOMEN: Soft. IMPRESSION: Respiratory failure, coronavirus disease-19, diabetes mellitus. Continue as ordered. We will follow. MD SANTO [place]/MODL /[id number]
[2019-10-04] MEDS: LACTULOSE SYRUP 20 GM/30 ML UDC PO PRN (18:30)
[2019-10-04] MEDS ORDERED: ACETAMINOPHEN 1000 MG/100 ML IV SCH (18:30)
[2019-10-04] MEDS: NOREPINEPHRINE INJ 4MG/4ML 8 MG in DEXTROSE 5% 250ML 250 ML IV SCH (20:02)
[2019-10-04] MEDS: ROCURONIUM BROMIDE 250 MG in SODIUM CHLORIDE 0.9% 250ML 225 ML IV SCH ×2 (20:03→23:45)
--- NOTE | 2019-10-04 21:05 | Consultation ---
DATE OF CONSULTATION: 10/04/2019 Cardiology Consultation REASON FOR CONSULTATION: Management of cardiovascular disease. HISTORY OF PRESENT ILLNESS: An 79-year-old man with reported history of hypertension, ASCVD, presents with fever and shortness of breath requiring ventilatory support. He was found to have COVID-19 infection, community-acquired. He was also noted to have anemia. REVIEW OF SYSTEMS: A 12-system review, unable to assess the medication. The patient's condition intubated and sedated. PAST MEDICAL HISTORY: Per chart review. SOCIAL HISTORY: Unable to assess. FAMILY HISTORY: Unable to assess. PHYSICAL EXAMINATION: VITAL SIGNS: Temperature 100.4, heart rate 75, on telemetry, sinus rhythm, blood pressure 123/39, respiratory rate 28, O2 saturation 92%. BMI 31.4. GENERAL: Intubated and sedated. NECK: Supple. CHEST: With rales and decreased breath sounds. CARDIOVASCULAR: Regular rate and rhythm. Normal S1 and S2. No S3 or S4. ABDOMEN: Soft. Bowel sounds positive. EXTREMITIES: No edema. Warm extremities. CARDIOVASCULAR MEDICATION: Reviewed. Initiated on heparin, fentanyl, and Versed, receiving meropenem, hydralazine 10 q.4, Lovenox 30 q.12. LABORATORY DATA: Studies reviewed. Sodium 149, potassium 5.3, chloride 114, bicarbonate 29, BUN 64 and creatinine 1.1, glucose 109, white blood cells 7.9, hemoglobin 8.2, and platelets are 152, INR 1, PT 14, PTT 52. AST 25, ALT 41, alkaline phosphatase 54, total bilirubin 0.6. ASSESSMENT AND PLAN: An 79-year-old man with COVID-19 infection, community-acquired pneumonia, anemia, acute respiratory failure, hypertension, atherosclerotic cardiovascular disease. RECOMMENDATIONS: 1. Blood pressure currently at goal. Continue with hydralazine as needed 10 q.4 hours. 2. Monitor H and H and for signs of gross bleeding. Anemia workup. For now, given COVID infection, I agree with DVT prophylaxis with Lovenox. 3. Obtain echocardiogram. 4. We will attempt to obtain further information regarding the patient's past medical history from family. Thank you for the opportunity to participate in the care of Mr. Geller. Please call with any questions [phone]. MD REMY Aly/LIAML /[id number]
[2019-10-04] MEDS ORDERED: FUROSEMIDE INJ 10 MG/ML 2 ML VIAL IV ONE (23:45)
[2019-10-05] VITALS (24 sets, daily range): BP systolic 101–141; BP diastolic 40–57
--- NOTE | 2019-10-05 00:06 | Progress Note ---
DATE: 10/04/2019 Medicine Progress Note SUBJECTIVE: The patient is still having significant fever. PHYSICAL EXAMINATION: VITAL SIGNS: Temperature was 100.4, pulse 60, respiratory rate is 23, blood pressure 119/40, and pulse ox 92% on mechanical ventilator, FiO2 70%. GENERAL: Intubated and sedated. PULMONARY: Intubated and sedated. CARDIOVASCULAR: Positive S1 and S2. No murmurs, rubs, or gallops appreciated. ABDOMEN: Soft, nondistended, and nontender to palpation. Bowel sounds present. MUSCULOSKELETAL: Unable to assess, sedated. NEUROLOGIC: Unable to assess, sedated. SKIN: Intact. Warm to touch. Good cap refill. EXTREMITIES: No edema. Good range of motion throughout. LABORATORY DATA: Show white count 7.9, hemoglobin 8.2, hematocrit is 26, and platelets of 152. Chemistry shows a sodium of 149, potassium 5.3, chloride 114, bicarbonate is 29, anion gap of 11, BUN is 64, and creatinine 1.1. IMPRESSION: 1. Acute respiratory failure secondary to coronavirus pneumonia, intubated and sedated on a mechanical ventilator. 2. Viral pneumonia. 3. Acute kidney injury with mild hyperkalemia. 4. Metabolic acidosis, resolved. 5. Mild hypernatremia. PLAN: At this time, the patient is still intubated and sedated. Continue with antibiotics. There is a high dose of vitamins. Pulmonary Critical Care and ID are following. Cardiology was consulted as well. Give Lasix 20 mg IV once. I believe the hyperkalemia is coming from steroids, also Lovenox. We may need to change the tube feeds to Nepro. We will need to get dietitian consultation to evaluate for that. Lovenox for DVT prophylaxis. MD SRIDHAR Manuel/MISAEL /[id number]
[2019-10-05] MEDS: ACETAMINOPHEN 325 MG TAB PO PRN (01:56)
[2019-10-05] MEDS: MIDAZOLAM HCL 5MG/ML 10ML VIAL 100 ML IV PRN ×3 (04:39→18:18)
[2019-10-05 04:40] LABS: BASOPHILS % 0.1 % (0.0-1.0); EOSINOPHILS # (AUTO) 0.2 (0.0-0.4); EOSINOPHILS % 1.3 % (0.0-6.0); HEMATOCRIT 29.5 % (38.2-49.6); HEMOGLOBIN 8.8 g/dL (14.0-18.0); LYMPHOCYTES # (AUTO) 0.5 (1.0-3.2); LYMPHOCYTES % 4.6 % (18.0-39.1); MEAN CORPUSCULAR HEMOGLOBIN 31.2 pg (28-32); MEAN CORPUSCULAR HGB CONC 29.8 g/dL (31-35); MEAN CORPUSCULAR VOLUME 104.6 fL (81-99); MONOCYTES # (AUTO) 0.4 (0.2-0.8); MONOCYTES % 3.8 % (4.4-11.3); NEUTROPHILS # (AUTO) 10.4 (2.1-6.9); PLATELET COUNT 144 x10e3/uL (140-360); RED BLOOD COUNT 2.82 x10e6/uL (4.3-5.7); RED CELL DISTRIBUTION WIDTH 12.6 % (11.7-14.4)
[2019-10-05 05:00] LABS: ALBUMIN 2.5 g/dL (3.5-5.0); ALBUMIN/GLOBULIN RATIO 0.7 (0.8-2.0); ANION GAP 12.6 mmol/L (8-16); CALCIUM 9.7 mg/dL (8.4-10.2); CREATININE, SERUM 1.42 mg/dL (0.72-1.25); POTASSIUM 5.6 mmol/L (3.5-5.1)
[2019-10-05] MEDS: ROCURONIUM BROMIDE 250 MG in SODIUM CHLORIDE 0.9% 250ML 225 ML IV SCH ×2 (06:04→17:33)
[2019-10-05] MEDS: ENOXAPARIN 30 MG/0.3 ML SYR SC SCH ×2 (07:59→20:52)
[2019-10-05] MEDS: FAMOTIDINE 20 MG/2 ML VIAL IV SCH ×2 (07:59→20:52)
[2019-10-05] MEDS ORDERED: SOD POLYSTYRENE SULFONATE SUSP 15 GM/60 ML BTL PO ONE (08:20)
--- NOTE | 2019-10-05 08:58 | Diagnostic Imaging Report ---
EXAM: CHEST SINGLE (PORTABLE) INDICATION: Respiratory failure, viral pneumonia. COMPARISON: Chest radiograph 10/04/2019. FINDINGS: Endotracheal tube, right IJ central venous catheter, and enteric tube in unchanged position. Again noted are lower lung zone predominant airspace and interstitial opacities, slightly increased from the prior study. Possible trace bilateral pleural effusions. No pneumothorax. The cardiomediastinal silhouette is stable in appearance. No acute osseous abnormality. IMPRESSION: Slightly increased lower lung zone predominant interstitial and airspace opacities, compatible with multifocal pneumonia. Lines and tubes as above. No pneumothorax. Signed by: Dr. Alison Brownlee MD on 10/05/2019 8:54 AM
[2019-10-05] MEDS ORDERED: FAMOTIDINE 20 MG/2 ML VIAL IV SCH (09:00)
[2019-10-05 10:05] LABS: ABG HCO3 29 mmol/L (22-26); ABG PCO2 51 mmHg (35-45); ABG PH 7.37 (7.35-7.45); ABG PO2 61 mmHg (80-105); ABG TCO2 31
[2019-10-05] MEDS ORDERED: BISACODYL 10 MG SUPP PR ONE (12:15)
--- NOTE | 2019-10-05 14:09 | Progress Note ---
DATE: 10/05/2019 Medicine Progress Note SUBJECTIVE: The patient is still intubated and sedated. He had a temperature of 97.5, but did have an elevated temperature yesterday. Of note, he does have some mild hyperkalemia. PHYSICAL EXAMINATION: VITAL SIGNS: Temperature is 97.5, pulse 60, respiratory rate is 20, blood pressure 131/43, and pulse ox 94% on mechanical ventilator, 90% FiO2. GENERAL: Not in acute distress. Intubated and sedated. CARDIOVASCULAR: Positive S1 and S2. No murmurs, rubs, or gallops appreciated. PULMONARY: Intubated and sedated. ABDOMEN: Soft, nondistended, and nontender to palpation. Bowel sounds present. MUSCULOSKELETAL: He is intubated and sedated. NEUROLOGIC: Intubated and sedated. SKIN: Intact. Warm to touch. Good cap refill. EXTREMITIES: No edema appreciated. LABORATORY DATA: Show white count 11.7, hemoglobin 8.8, hematocrit is 29.5, and platelets of 144. Chemistry; sodium 148, potassium 5.6, chloride 111, bicarb is 30, anion gap of 12, BUN is 55, creatinine is 1.42, glucose is 140, and calcium 9.7. Total bilirubin is 1, AST 44, ALT 49, and alkaline phosphatase 63. MICROBIOLOGY: Repeat urine cultures were negative. IMAGING STUDIES: Chest x-ray shows slightly increase lower lung zone predominant interstitial and airspace opacities, compatible with multifocal pneumonia. No pneumothorax. IMPRESSION: 1. Acute respiratory failure secondary to coronavirus pneumonia, intubated and sedated, on mechanical ventilator. 2. Viral pneumonia. 3. Acute kidney injury with mild hyperkalemia. 4. Metabolic acidosis, resolved. 5. Mild hypernatremia. PLAN: At this time, the patient is still intubated and sedated on a mechanical ventilator. Continue with high doses of vitamins. Pulmonary Critical Care and ID are following. He was given Kayexalate this morning. We will get repeat labs and give Lasix 40 mg IV once to get the potassium out. Hyperkalemia is multifactorial in nature, could be from tube feeds as well. We will go ahead and change the tube feeds to Nepro on the same rate until dietitian comes and evaluate the patient. I will go ahead and add a little bit of free water due to the hypernatremia and then monitor, that is also contributing to the hyperkalemia as well secondary to dehydration. We will put on Lovenox for DVT prophylaxis. I also spoke with the nurse and discussed plan of care with her. MD SRIDHAR Manuel/MISAEL /[id number]
--- NOTE | 2019-10-05 16:05 | Progress Note ---
DATE: SUBJECTIVE: The patient remains on a PRVC mode of ventilation. His FiO2 is set at 80% and his PEEP is set at 12. His tidal volume is 380 and his respiratory rate is 28. He is on Levophed at 4 mcg. PHYSICAL EXAMINATION: VITAL SIGNS: The blood pressure is 131/43 and the saturation is 94%. The patient is afebrile. HEENT: Shows no facial swelling or erythema. There is an oral endotracheal tube in place. Nasogastric feeding tube. CARDIAC: Reveals a regular rate and rhythm with a normal S1 and S2. LUNGS: Auscultation of lungs reveals crackles at the bases. There is no wheezing. ABDOMEN: Soft and nontender. There is no rebound or guarding. EXTREMITIES: Shows no leg edema or calf tenderness. There is no cyanosis or clubbing. SKIN: Shows no rashes. NEUROLOGICAL: Shows the patient to be sedated and paralyzed. LABORATORY DATA: White blood cell count is 11.7, hemoglobin is 8.8, and the platelet count is 144. The BUN to creatinine ratio is 55 to 1.42. Potassium is 5.6. Albumin is 2.5. IMPRESSION: 1. Acute respiratory failure. 2. Viral pneumonia and COVID-19 infection. 3. Acute kidney injury. 4. Diabetes. 5. Hyperkalemia. PLAN: 1. Continue current ventilator settings and monitor ABGs. 2. Continue to wean Levophed. 3. Continue fentanyl and Versed. 4. Complete current antibiotics. 5. Complete dexamethasone. 6. Enteral feedings. 7. Monitor renal function. Greater than 35 minutes in direct critical care time. Иван Martinez MD [facility]/MODL /[id number]
--- NOTE | 2019-10-05 17:20 | Progress Note ---
DATE: SUBJECTIVE: Mr. Geller remains in intensive care unit, has a fever 102. Intubated, sedated. PHYSICAL EXAMINATION: HEENT: He is not icteric. NECK: Supple. CHEST: Crackles. HEART: S1, S2. ABDOMEN: Soft. EXTREMITIES: No edema. LABORATORY DATA: WBC of 11, hemoglobin 8.8. IMPRESSION: Fever concerned about healthcare-associated pneumonia, aspiration pneumonia, status post coronavirus disease-19 and this is day #11. Acute kidney injury, respiratory failure. PLAN: Plan is to put the patient on meropenem, adjust for kidney function. Obtain sputum culture. MD SANTO [place]/MODL /[id number]
[2019-10-05] MEDS: FENTANYL 2000MCG/NS 250 250 ML IV PRN (17:34)
[2019-10-05] MEDS: MEROPENEM 500MG/ NS 50ML 50 ML IV SCH (18:18)
[2019-10-06] VITALS (25 sets, daily range): BP systolic 99–133; BP diastolic 36–57
[2019-10-06] MEDS: MIDAZOLAM HCL 5MG/ML 10ML VIAL 100 ML IV PRN (04:00)
[2019-10-06 04:29] LABS: BASOPHILS % 0.1 % (0.0-1.0); EOSINOPHILS # (AUTO) 0.2 (0.0-0.4); EOSINOPHILS % 1.9 % (0.0-6.0); HEMATOCRIT 28.5 % (38.2-49.6); HEMOGLOBIN 8.5 g/dL (14.0-18.0); LYMPHOCYTES # (AUTO) 0.4 (1.0-3.2); LYMPHOCYTES % 5.1 % (18.0-39.1); MEAN CORPUSCULAR HEMOGLOBIN 31.4 pg (28-32); MEAN CORPUSCULAR HGB CONC 29.8 g/dL (31-35); MEAN CORPUSCULAR VOLUME 105.2 fL (81-99); MONOCYTES # (AUTO) 0.2 (0.2-0.8); MONOCYTES % 2.6 % (4.4-11.3); NEUTROPHILS # (AUTO) 7.5 (2.1-6.9); NEUTROPHILS % 89.6 % (38.7-80.0); PLATELET COUNT 117 x10e3/uL (140-360); RED BLOOD COUNT 2.71 x10e6/uL (4.3-5.7); RED CELL DISTRIBUTION WIDTH 12.7 % (11.7-14.4)
[2019-10-06 04:45] LABS: ALANINE AMINOTRANSFERASE 38 IU/L (0-55); ALBUMIN 2.2 g/dL (3.5-5.0); ALBUMIN/GLOBULIN RATIO 0.6 (0.8-2.0); ALKALINE PHOSPHATASE 55 IU/L (40-150); BLOOD UREA NITROGEN 39 mg/dL (7-26); BUN/CREATININE RATIO 36 (6-25); CALCIUM 9.1 mg/dL (8.4-10.2); CARBON DIOXIDE 28 mmol/L (22-29); CHLORIDE 113 mmol/L (98-107); CREATININE, SERUM 1.08 mg/dL (0.72-1.25); EST GLOMERULAR FILTRATION RATE > 60 ML/MIN (60-); GLUCOSE 126 mg/dL (74-118); SODIUM 149 mmol/L (136-145)
[2019-10-06] MEDS: FENTANYL 2000MCG/NS 250 250 ML IV PRN ×3 (04:51→23:50)
[2019-10-06] MEDS: MEROPENEM 500MG/ NS 50ML 50 ML IV SCH ×2 (07:50→18:04)
[2019-10-06] MEDS: ENOXAPARIN 30 MG/0.3 ML SYR SC SCH ×2 (07:58→21:09)
[2019-10-06] MEDS: FAMOTIDINE 20 MG/2 ML VIAL IV SCH ×2 (07:58→21:10)
[2019-10-06] MEDS: ROCURONIUM BROMIDE 250 MG in SODIUM CHLORIDE 0.9% 250ML 225 ML IV SCH ×2 (07:58→14:52)
[2019-10-06 08:38] LABS: ABG HCO3 28 mmol/L (22-26); ABG PCO2 51 mmHg (35-45); ABG PH 7.35 (7.35-7.45); ABG PO2 65 mmHg (80-105); ABG TCO2 30
[2019-10-06] MEDS: NOREPINEPHRINE INJ 4MG/4ML 8 MG in DEXTROSE 5% 250ML 250 ML IV SCH (12:03)
--- NOTE | 2019-10-06 13:18 | Diagnostic Imaging Report ---
EXAM: CHEST SINGLE (PORTABLE) INDICATION: Respiratory failure, viral pneumonia. COMPARISON: Chest radiograph 10/05/2019. FINDINGS: Endotracheal tube, right IJ central venous catheter, and enteric tube are unchanged in position. Bilateral, predominantly lower lobe patchy airspace disease is somewhat multifocal pneumonia not significantly changed. Trace bilateral pleural effusions. No pneumothorax. The cardiomediastinal silhouette is stable in appearance. Constipation of aortic arch. No acute osseous abnormality. IMPRESSION: No interval change in bilateral, predominantly lower lobe patchy airspace disease/multifocal pneumonia Stable supporting tubes and lines. Signed by: Dr. Estefany Fung M.D. on 10/06/2019 1:15 PM
--- NOTE | 2019-10-06 13:54 | Progress Note ---
DATE: SUBJECTIVE: The patient is now on 4 mcg of Levophed. He remains on Versed and fentanyl as well as rocuronium. He is on a PRVC mode of ventilation at a rate of 28 with a tidal volume of 390. His FiO2 is set at 80%. His PEEP is set at 12. PHYSICAL EXAMINATION: VITAL SIGNS: The blood pressure is 112/41, saturation is 94%. The heart rate is normal. HEENT: Shows no facial swelling or erythema. There is an oral endotracheal tube. There is a right IJ line. The site looks clean. There is no drainage. There is a radial artery in good position. CARDIAC: Reveals regular rhythm with normal S1 and S2. LUNGS: Auscultation of lungs reveals rhonchorous breath sounds bilaterally. There is no wheezing. ABDOMEN: Soft and nontender. There is no rebound or guarding. EXTREMITIES: Shows no leg edema or calf tenderness. There is no cyanosis or clubbing. SKIN: Shows no rashes. NEUROLOGICAL: Shows no focal abnormalities. LABORATORY DATA: Blood cell count is 8.4, hemoglobin is 8.5. The platelet count is 117. BUN to creatinine ratio is 39 to 1.08 and the sodium was 149. Albumin is 2.2. IMPRESSION: 1. Acute respiratory failure. 2. Viral pneumonia and COVID-19 infection. 3. Acute kidney injury. 4. Diabetes. 5. Hyperkalemia. PLAN: 1. Continue to wean Levophed. 2. Continue current ventilator settings and monitor ABGs. 3. Continue fentanyl and Versed. 4. Complete dexamethasone. 5. Complete antibiotics. 6. Enteral feedings. Greater than 35 minutes in direct critical care time. Иван Martinez MD [facility]/MODL /[id number]
--- NOTE | 2019-10-06 16:19 | NUR ---
patient is in ICU [facility] he patient is now on 4 mcg of Levophed. seen and examined He remains on Versed and fentanyl as well as rocuronium. He is on a PRVC mode of ventilation at a rate of 28 with a tidal volume of 390. His FiO2 is set at 80%. His PEEP is set at 12. PHYSICAL EXAMINATION: VITAL SIGNS: The blood pressure is 112/41, saturation is 94%. The heart rate is normal. HEENT: Shows no facial swelling or erythema. There is an oral endotracheal tube. There is a right IJ line. The site looks clean. There is no drainage. There is a radial artery in good position. CARDIAC: Reveals regular rhythm with normal S1 and S2. LUNGS: Auscultation of lungs reveals rhonchorous breath sounds bilaterally. There is no wheezing. ABDOMEN: Soft and nontender. There is no rebound or guarding. EXTREMITIES: Shows no leg edema or calf tenderness. There is no cyanosis or clubbing. SKIN: Shows no rashes. NEUROLOGICAL: Shows no focal abnormalities. LABORATORY DATA: Blood cell count is 8.4, hemoglobin is 8.5. The platelet count is 117. BUN to creatinine ratio is 39 to 1.08 and the sodium was 149. Albumin is 2.2. covid 19 superimposed pneumonia will start Mycamine cont meropenem resp failure
[2019-10-06] MEDS ORDERED: ATORVASTATIN 20 MG TAB NG SCH (16:45)
[2019-10-06] MEDS ORDERED: FUROSEMIDE INJ 10 MG/ML 2 ML VIAL IV ONE (16:45)
[2019-10-06] MEDS: ASPIRIN 81 MG CHEW TAB NG SCH (18:06)
[2019-10-06] MEDS: MICAFUNGIN SODIUM 100 ML IV SCH (18:06)
--- NOTE | 2019-10-06 19:25 | Progress Note ---
DATE: 10/06/2019 Cardiology Progress Note SUBJECTIVE: Intubated and sedated. OBJECTIVE: VITAL SIGNS: Temperature 97.8, heart rate 83, blood pressure 114/39, respiratory rate 28, and O2 saturation 94%, on vent support. GENERAL: Intubated and sedated. HEENT: Dry mucosa. NECK: Supple. No JVD. CHEST: With rales and decreased breath sounds. CARDIOVASCULAR: Regular rate and rhythm. Normal S1, S2. ABDOMEN: Soft. EXTREMITIES: No edema. Warm extremities. CARDIOVASCULAR MEDICATIONS: Reviewed. Fentanyl, Versed, low-dose Levophed of 5 mcg, and Lovenox 30 mg q.12 hours. STUDIES: Reviewed. Sodium 149, potassium 5, chloride 113, bicarbonate 28, BUN 39, creatinine 1, glucose 126. White blood cells 8, platelets 117, hemoglobin 8.5. PTT 52. INR 1.04. AST 30, ALT 38. ASSESSMENT AND PLAN: An 79-year-old man with history of coronary artery disease with previous coronary stents. Severe sepsis with septic shock, acute respiratory failure in the setting of COVID-19 infection, community-acquired pneumonia, history of hypertension, anemia. RECOMMENDATIONS: 1. Aspirin 81 mg daily. 2. Atorvastatin 40 mg at bedtime. 3. Continue to wean pressors for MAP 65 to 75. Monitor H and H. 4. Continue rest of cardiovascular medications. MD REMY Aly/MISAEL /[id number]
[2019-10-06] MEDS: ATORVASTATIN 40 MG TAB NG SCH (21:09)
--- NOTE | 2019-10-06 23:31 | Progress Note ---
DATE: 10/06/2019 Medicine Progress Note SUBJECTIVE: The patient is still intubated and sedated. Still requiring significant amount of oxygen. PHYSICAL EXAMINATION: VITAL SIGNS: Temperature was 99.3, pulse 85, respiratory rate 28, blood pressure 122/42. He is on mechanical ventilator, FiO2 80%. GENERAL: Intubated and sedated. PULMONARY: Intubated and sedated. CARDIOVASCULAR: Positive S1, S2. No murmurs, rubs, or gallops. ABDOMEN: Soft, nondistended, and nontender to palpation. Bowel sounds present. MUSCULOSKELETAL: Unable to assess. NEUROLOGICAL: Unable to assess. SKIN: Intact warm to touch. EXTREMITIES: No edema appreciated. LABORATORY DATA: Show white count was 8.4, hemoglobin 8.5, hematocrit 28, platelets of 117. Chemistry; sodium was 149, potassium 5, chloride 113, bicarb 28, anion gap 13, BUN 39 and creatinine is 1.08. Microbiology, no growth. IMAGING STUDIES: Chest x-ray, this morning, still shows no change. IMPRESSION: 1. Acute respiratory failure secondary to coronavirus pneumonia, intubated and sedated on mechanical ventilator. 2. Viral pneumonia. 3. Acute kidney injury with mild hyperkalemia-resolved. 4. Metabolic acidosis-resolved. 5. Mild hypernatremia. PLAN: At this time, the patient maintained to be intubated and sedated, requiring high doses of vitamins. Pulmonary Critical Care and ID are following. His potassium improved. His acute kidney injury and creatinine improved as well. Continue with free water flushes. We did change his tube feeds to Nepro, which has helped tremendously. Get a.m. labs. Lovenox for DVT prophylaxis. Discussed with nursing staff. MD SRIDHAR Manuel/LIAML /[id number]
[2019-10-07] VITALS (25 sets, daily range): BP systolic 96–163; BP diastolic 32–60
[2019-10-07] MEDS: MIDAZOLAM HCL 5MG/ML 10ML VIAL 100 ML IV PRN ×4 (00:30→18:15)
[2019-10-07] MEDS: MEROPENEM 500MG/ NS 50ML 50 ML IV SCH ×2 (05:20→16:49)
[2019-10-07 06:25] LABS: BASOPHILS % 0.1 % (0.0-1.0); EOSINOPHILS # (AUTO) 0.3 (0.0-0.4); EOSINOPHILS % 3.2 % (0.0-6.0); HEMATOCRIT 27.1 % (38.2-49.6); HEMOGLOBIN 8.3 g/dL (14.0-18.0); LYMPHOCYTES # (AUTO) 0.6 (1.0-3.2); LYMPHOCYTES % 6.7 % (18.0-39.1); MEAN CORPUSCULAR HEMOGLOBIN 31.4 pg (28-32); MEAN CORPUSCULAR HGB CONC 30.6 g/dL (31-35); MEAN CORPUSCULAR VOLUME 102.7 fL (81-99); MONOCYTES # (AUTO) 0.3 (0.2-0.8); MONOCYTES % 3.3 % (4.4-11.3); NEUTROPHILS # (AUTO) 7.8 (2.1-6.9); PLATELET COUNT 136 x10e3/uL (140-360); RED BLOOD COUNT 2.64 x10e6/uL (4.3-5.7); RED CELL DISTRIBUTION WIDTH 12.9 % (11.7-14.4)
[2019-10-07 06:44] LABS: ALANINE AMINOTRANSFERASE 33 IU/L (0-55); ALBUMIN 1.9 g/dL (3.5-5.0); ALBUMIN/GLOBULIN RATIO 0.5 (0.8-2.0); ALKALINE PHOSPHATASE 61 IU/L (40-150); ANION GAP 10.1 mmol/L (8-16); BLOOD UREA NITROGEN 29 mg/dL (7-26); BUN/CREATININE RATIO 28 (6-25); CALCIUM 8.7 mg/dL (8.4-10.2); CARBON DIOXIDE 30 mmol/L (22-29); CHLORIDE 107 mmol/L (98-107); CREATININE, SERUM 1.02 mg/dL (0.72-1.25); EST GLOMERULAR FILTRATION RATE > 60 ML/MIN (60-); GLUCOSE 109 mg/dL (74-118); POTASSIUM 4.1 mmol/L (3.5-5.1); SODIUM 143 mmol/L (136-145)
--- NOTE | 2019-10-07 07:32 | Diagnostic Imaging Report ---
EXAMINATION: CHEST SINGLE (PORTABLE) COMPARISON: Chest x-ray 10/06/2019 INDICATION: ^resp failure ^[id number] ^[id number] DISCUSSION: HEART AND MEDIASTINUM: Stable cardiomegaly LINES: Endotracheal tube terminates 3 to 4 cm above the dulce. Enteric tube extends past the diaphragm. Right IJ catheter terminates in the SVC. LUNGS/PLEURA: Multiple skin folds overlie the right chest. Diffuse alveolar airspace opacities in the mid and lower lung zones are similar. No large effusions. No pneumothorax. BONES AND SOFT TISSUES: Unremarkable. IMPRESSION: Support devices as described above. No change in multifocal infiltrates consistent with pneumonia. Signed by: Dr. Julian Valencia MD on 10/07/2019 7:28 AM
[2019-10-07] MEDS: ACETAMINOPHEN 325 MG TAB PO PRN (08:05)
[2019-10-07] MEDS: FAMOTIDINE 20 MG/2 ML VIAL IV SCH ×2 (08:06→20:40)
[2019-10-07] MEDS: ASPIRIN 81 MG CHEW TAB NG SCH (08:06)
[2019-10-07] MEDS: ENOXAPARIN 30 MG/0.3 ML SYR SC SCH ×2 (08:06→20:40)
--- NOTE | 2019-10-07 10:05 | NUR ---
Infectious disease problems note patient seen and examined chart reviewed the events noted Ms. intensive care unit The patient is still intubated and sedated. Still requiring significant amount of oxygen. PHYSICAL EXAMINATION: VITAL SIGNS: Temperature was 99.3, pulse 85, respiratory rate 28, blood pressure 122/42. He is on mechanical ventilator, FiO2 80%. GENERAL: Intubated and sedated. PULMONARY: Intubated and sedated. CARDIOVASCULAR: Positive S1, S2. No murmurs, rubs, or gallops. ABDOMEN: Soft, nondistended, and nontender to palpation. Bowel sounds present. MUSCULOSKELETAL: Unable to assess. NEUROLOGICAL: Unable to assess. SKIN: Intact warm to touch. EXTREMITIES: No edema appreciated. LABORATORY DATA: Show white count was 8.4, hemoglobin 8.5, hematocrit 28, platelets of 117. Chemistry; sodium was 149, potassium 5, chloride 113, bicarb 28, anion gap 13, BUN 39 and creatinine is 1.08. Microbiology, no growth. IMAGING STUDIES: Chest x-ray, this morning, still shows no change. IMPRESSION: 1. Acute respiratory failure secondary to coronavirus pneumonia, intubated and sedated on mechanical ventilator. 2. Viral pneumonia. 3. Acute kidney injury with mild hyperkalemia-resolved. 4. Metabolic acidosis-resolved. 5. Mild hypernatremia. His prognosis remains very poor guarded his day 14 of hospitalization Continue as ordered discussed with medical team
[2019-10-07 10:34] LABS: ABG HCO3 29 mmol/L (22-26); ABG PCO2 52 mmHg (35-45); ABG PH 7.35 (7.35-7.45); ABG PO2 64 mmHg (80-105); ABG TCO2 30
[2019-10-07] MEDS: FENTANYL 2000MCG/NS 250 250 ML IV PRN ×2 (10:54→22:00)
[2019-10-07] MEDS: NOREPINEPHRINE INJ 4MG/4ML 8 MG in DEXTROSE 5% 250ML 250 ML IV SCH (11:01)
--- NOTE | 2019-10-07 14:38 | Progress Note ---
DATE: 10/07/2019 Medicine Progress Note SUBJECTIVE: The patient still intubated and sedated. No overnight events. PHYSICAL EXAMINATION: VITAL SIGNS: Temperature is 100.1, pulse 70, respiratory rate is 20, blood pressure 110/39, and pulse ox 92% on mechanical ventilator, FiO2 80%. GENERAL: Intubated and sedated. PULMONARY: Intubated and sedated. CARDIOVASCULAR: Positive S1 and S2. No murmurs, rubs, or gallops appreciated. ABDOMEN: Soft, nondistended, and nontender to palpation. Bowel sounds present. MUSCULOSKELETAL: Unable to assess. He is sedated. NEUROLOGIC: Unable to assess. He is sedated. SKIN: Intact. Warm to touch. Good cap refill. EXTREMITIES: He has trace edema appreciated. LABORATORY DATA: Show white count 9, hemoglobin 8, hematocrit 27, and platelets of 136. Chemistry; sodium 143, potassium 4.1, chloride 107, bicarb 30, anion gap of 10, BUN is 29, and creatinine is 1.02. MICROBIOLOGY: Negative. IMAGING STUDIES: Chest x-ray this morning shows no change in multifocal infiltrate consistent with pneumonia. IMPRESSION: 1. Acute respiratory failure secondary to coronavirus pneumonia, intubated and sedated, on mechanical ventilator. 2. Viral pneumonia. 3. Acute kidney with mild hyperkalemia-resolved. 4. Metabolic acidosis-resolved. 5. Mild hypernatremia. PLAN: At this time, the patient is still intubated and sedated. His electrolytes improved tremendously, which we will continue with free water and tube feeds with Nepro. He is on anticoagulation. ID, Pulmonary Critical Care, and Cardiology are following. Continue same plan of care and monitor closely. MD SRIDHAR Manuel/MODL /[id number]
[2019-10-07] MEDS: ROCURONIUM BROMIDE 250 MG in SODIUM CHLORIDE 0.9% 250ML 225 ML IV SCH (15:00)
[2019-10-07] MEDS ORDERED: FUROSEMIDE INJ 10 MG/ML 4 ML VIAL IV NR (16:00)
[2019-10-07] MEDS: MICAFUNGIN SODIUM 100 ML IV SCH (16:49)
--- NOTE | 2019-10-07 17:30 | NUR ---
Pt's step daughter called and asking for patients car keys. RN looked through patient's belongings at bedside and informed family that there are no keys in his belongings. and informed Patient's HR went up to the 120's, blood pressure elevated and O2 sats dropped to 80%. Dr. Marie Martinez notified and gave orders for ABG and stat chest x ray. FIO2 increased to 100%. Dr. Marie Martinez notified of ABG results. Will continue to monitor.
[2019-10-07 17:48] LABS: ABG HCO3 28 mmol/L (22-26); ABG PCO2 53 mmHg (35-45); ABG PH 7.33 (7.35-7.45); ABG PO2 58 mmHg (80-105); ABG TCO2 29
[2019-10-07] MEDS: ALBUMIN 25% 25GM 100ML 0.25 GM/ML BTL IV SCH (18:15)
--- NOTE | 2019-10-07 18:33 | Diagnostic Imaging Report ---
EXAMINATION: CHEST SINGLE (PORTABLE) COMPARISON: Chest x-ray 10/04/2019 INDICATION: ^potential pneumothorax ^[id number] ^[id number] DISCUSSION: Frontal view of the chest obtained at 1750 hours. HEART AND MEDIASTINUM: The cardiac borders are obscured due to increasing pulmonary infiltrates LINES: Endotracheal tube terminates 3 to 4 cm above the dulce. Enteric tube extends past the diaphragm. Right IJ catheter terminates in the SVC. LUNGS/PLEURA: As mentioned above, pulmonary infiltrates are increasing as well as progression of vascular congestion. No large effusions or pneumothorax. BONES AND SOFT TISSUES: No focal osseous lesion. The soft tissues are normal. IMPRESSION: Worsening pulmonary infiltrates and vascular congestion. No evidence of pneumothorax on this image. Support devices as described above. Signed by: Dr. Julian Valencia MD on 10/07/2019 6:30 PM
--- NOTE | 2019-10-07 18:54 | Progress Note ---
DATE: Pulmonary Critical Care Progress Note SUBJECTIVE: The patient is now on a PRVC mode of ventilation. The rate is set at 28 and the FiO2 is 80%. The PEEP is set at 12. Tidal volume is 400. He remains on Levophed at 6 mcg. He is on Versed and fentanyl. PHYSICAL EXAMINATION: VITAL SIGNS: The blood pressure is 110/40, saturation 92%. HEENT: Shows no facial swelling or erythema. The oropharynx is normal. LYMPHATIC: Shows no submandibular, cervical, or supraclavicular adenopathy. CARDIAC: Reveals a regular rhythm with normal S1 and S2. LUNGS: Auscultation of the lungs reveals rhonchorous breath sounds bilaterally. There is no wheezing. ABDOMEN: Soft, nontender. There is no wheezing. EXTREMITIES: There is no leg edema. LABORATORY DATA: BUN to creatinine ratio is 29 to 1.02. Other electrolytes are within normal limits. Albumin is 1.2. White blood cell count is 9 and hemoglobin is 8.3. Platelet count is 136. RADIOGRAPHIC DATA: Chest x-ray shows bilateral infiltrates. IMPRESSION: 1. Acute respiratory failure. 2. Pneumonia and coronavirus disease 2019 infection. 3. Acute kidney injury. 4. Diabetes. 5. Hyperkalemia. PLAN: 1. Continue to wean Levophed. 2. Monitor ventilator settings and repeat ABG. 3. Continue fentanyl and Versed. 4. Complete antibiotics. 5. Enteral feedings. 6. Complete dexamethasone. Greater than 35 minutes in direct critical care time. Иван Martinez MD [facility]/MODL /[id number]
[2019-10-07] MEDS: ATORVASTATIN 40 MG TAB NG SCH (20:40)
[2019-10-07] MEDS ORDERED: ACETAMINOPHEN 1000 MG/100 ML IV PRN (23:30)
[2019-10-08] VITALS (25 sets, daily range): BP systolic 112–144; BP diastolic 39–58
[2019-10-08] MEDS: ALBUMIN 25% 25GM 100ML 0.25 GM/ML BTL IV SCH ×2 (00:29→05:33)
[2019-10-08] MEDS: NOREPINEPHRINE INJ 4MG/4ML 8 MG in DEXTROSE 5% 250ML 250 ML IV SCH ×2 (02:10→17:40)
[2019-10-08] MEDS: MIDAZOLAM HCL 5MG/ML 10ML VIAL 100 ML IV PRN ×3 (03:00→20:44)
[2019-10-08] MEDS: ROCURONIUM BROMIDE 250 MG in SODIUM CHLORIDE 0.9% 250ML 225 ML IV SCH ×2 (04:44→16:22)
[2019-10-08] MEDS: MEROPENEM 500MG/ NS 50ML 50 ML IV SCH ×2 (05:33→16:40)
[2019-10-08 05:41] LABS: BASOPHILS % 0.3 % (0.0-1.0); EOSINOPHILS # (AUTO) 0.3 (0.0-0.4); EOSINOPHILS % 2.4 % (0.0-6.0); HEMATOCRIT 26.6 % (38.2-49.6); HEMOGLOBIN 8.3 g/dL (14.0-18.0); LYMPHOCYTES % 6.7 % (18.0-39.1); MEAN CORPUSCULAR HEMOGLOBIN 32.7 pg (28-32); MEAN CORPUSCULAR HGB CONC 31.2 g/dL (31-35); MEAN CORPUSCULAR VOLUME 104.7 fL (81-99); MONOCYTES # (AUTO) 0.5 (0.2-0.8); MONOCYTES % 3.7 % (4.4-11.3); NEUTROPHILS # (AUTO) 12.2 (2.1-6.9); NEUTROPHILS % 85.8 % (38.7-80.0); PLATELET COUNT 150 x10e3/uL (140-360); RED BLOOD COUNT 2.54 x10e6/uL (4.3-5.7); RED CELL DISTRIBUTION WIDTH 12.9 % (11.7-14.4)
[2019-10-08] MEDS: FENTANYL 2000MCG/NS 250 250 ML IV PRN ×2 (05:57→16:22)
[2019-10-08 06:07] LABS: ALANINE AMINOTRANSFERASE 35 IU/L (0-55); ALBUMIN 2.5 g/dL (3.5-5.0); ALBUMIN/GLOBULIN RATIO 0.8 (0.8-2.0); ALKALINE PHOSPHATASE 53 IU/L (40-150); ANION GAP 12.2 mmol/L (8-16); BLOOD UREA NITROGEN 19 mg/dL (7-26); BUN/CREATININE RATIO 23 (6-25); CALCIUM 8.6 mg/dL (8.4-10.2); CARBON DIOXIDE 27 mmol/L (22-29); CHLORIDE 104 mmol/L (98-107); CREATININE, SERUM 0.83 mg/dL (0.72-1.25); EST GLOMERULAR FILTRATION RATE > 60 ML/MIN (60-); GLUCOSE 115 mg/dL (74-118); POTASSIUM 4.2 mmol/L (3.5-5.1); SODIUM 139 mmol/L (136-145)
--- NOTE | 2019-10-08 07:00 | NUR ---
Chair documented in Turn Q2H flowsheet to indicate proned status
[2019-10-08] MEDS: FAMOTIDINE 20 MG/2 ML VIAL IV SCH ×2 (08:28→21:04)
[2019-10-08] MEDS: ENOXAPARIN 30 MG/0.3 ML SYR SC SCH ×2 (08:28→21:04)
[2019-10-08] MEDS: ASPIRIN 81 MG CHEW TAB NG SCH (08:28)
[2019-10-08] MEDS ORDERED: FUROSEMIDE INJ 10 MG/ML 4 ML VIAL IV ONE (09:30)
[2019-10-08 09:56] LABS: ABG HCO3 27 mmol/L (22-26); ABG PCO2 56 mmHg (35-45); ABG PH 7.29 (7.35-7.45); ABG PO2 91 mmHg (80-105); ABG TCO2 29
--- NOTE | 2019-10-08 10:21 | Progress Note ---
DATE: 10/08/2019 Cardiology Progress Note SUBJECTIVE: Remains intubated and sedated. OBJECTIVE: VITAL SIGNS: Temperature 97.5, heart rate 109, respiratory rate 28, blood pressure 139/46, and O2 saturation 96%, in prone position on vent support. Lasix at 9 mg/hour IV. Sedation ongoing with fentanyl and versed. The patient is on pressors, Levophed 6 mcg/minute, on aspirin 325 mg daily, atorvastatin 40 mg at bedtime, furosemide 40 mg IV x1 to be given today, and Lovenox 30 q.12 hours. GENERAL: Intubated and sedated. HEENT: ET tube in place. NECK: Supple. CHEST: With rales and decreased breath sounds. CARDIOVASCULAR: Regular rate and rhythm. Normal S1 and S2. ABDOMEN: Bowel sounds positive. EXTREMITIES: With 1+ edema. Normothermic. CARDIOVASCULAR MEDICATIONS: As above. STUDIES: Reviewed. White blood cells 14, hemoglobin 8.3, and platelets 150. PT 52. Creatinine 0.8. AST 38 and ALT 35. ASSESSMENT AND PLAN: An 79-year-old man with coronary artery disease, presents with severe sepsis and septic shock, COVID-19 infection, community-acquired pneumonia, history of hypertension, anemia, and coronary artery disease with previous coronary stents. RECOMMEND: 1. Continue aspirin and statin. 2. Wean pressors as tolerated for MAP 65 to 75. 3. Vent support per Pulmonary. MD REMY Aly/MISAEL /[id number]
[2019-10-08] MEDS: FUROSEMIDE INJ 10 MG/ML 4 ML VIAL IV SCH ×2 (11:27→21:04)
[2019-10-08] MEDS ORDERED: METHYLPREDNISOLONE SOD SUCC 125 MG/2ML VIAL IV SCH (11:30)
--- NOTE | 2019-10-08 11:53 | Progress Note ---
DATE: SUBJECTIVE: The patient had decreasing desaturations last night. He had to be placed in the prone position. He is now on a PRVC mode of ventilation at a rate of 30 with a tidal volume of 380. His PEEP is set at 10 and his FiO2 is 90%. PHYSICAL EXAMINATION: VITAL SIGNS: The patient's blood pressure is 128/43 and his pulse is 108. He has an oral endotracheal tube. CARDIAC: Reveals regular rate and rhythm with normal S1 and S2. LUNGS: Auscultation of lungs reveals wheezes in both lung coates. There is a prolonged expiratory phase. ABDOMEN: Soft and nontender. There is no rebound or guarding. EXTREMITIES: Shows no leg edema or calf tenderness. There is no cyanosis or clubbing. SKIN: Shows no rashes. NEUROLOGICAL: Shows the patient to be sedated. He is on Versed and fentanyl. He is also on rocuronium. LABORATORY DATA: White blood cell count is 14.2 and the hemoglobin is 8.3. The platelet count is 150. The BUN to creatinine ratio is normal. The other electrolytes are within normal limits. The albumin is 2.5. RADIOGRAPHIC DATA: Cyst x-ray shows bilateral infiltrates. IMPRESSION: 1. Acute respiratory failure. 2. Viral pneumonia and COVID-19 infection. 3. Wheezing and bronchospasm. 4. Acute kidney injury. 5. Diabetes. 6. Hyperlipidemia. PLAN: 1. Solu-Medrol and bronchodilators today to treat wheezing. 2. Continue to monitor ABG and wean ventilator as tolerated. 3. Continue fentanyl and Versed. 4. Complete antibiotics. 5. Begin Reglan for residuals with enteral feedings. 6. Prognosis is poor. 7. Case discussed with nursing, Respiratory, Infectious Disease, and administration. Greater than 35 minutes in direct critical care time. MD ROBERT Epps/MISAEL /[id number]
[2019-10-08] MEDS: ALBUMIN 25% 12.5GM 50ML 100 ML IV SCH ×3 (12:05→23:47)
[2019-10-08] MEDS: METOCLOPRAMIDE HCL 10 MG/2ML VIAL IV SCH ×3 (12:05→23:47)
--- NOTE | 2019-10-08 12:05 | NUR ---
infectious disease progress note Patient remains in intensive care unit intubated sedated on multiple drips events noted discussed with medical team The patient had decreasing desaturations last night. He had to be placed in the prone position. He is now on a PRVC mode of ventilation at a rate of 30 with a tidal volume of 380. His PEEP is set at 10 and his FiO2 is 90%. PHYSICAL EXAMINATION: is intubated and sedated VITAL SIGNS: The patient's blood pressure is 128/43 and his pulse is 108. He has an oral endotracheal tube. CARDIAC: Reveals regular rate and rhythm with normal S1 and S2. LUNGS: Auscultation of lungs reveals wheezes in both lung coates. There is a prolonged expiratory phase. ABDOMEN: Soft and nontender. There is no rebound or guarding. EXTREMITIES: Shows no leg edema or calf tenderness. There is no cyanosis or clubbing. SKIN: Shows no rashes. NEUROLOGICAL: Shows the patient to be sedated. He is on Versed and fentanyl. He is also on rocuronium. LABORATORY DATA: White blood cell count is 14.2 and the hemoglobin is 8.3. The platelet count is 150. The BUN to creatinine ratio is normal. The other electrolytes are within normal limits. The albumin is 2.5. RADIOGRAPHIC DATA: Cyst x-ray shows bilateral infiltrates. IMPRESSION: 1. Acute respiratory failure. 2. Viral pneumonia and COVID-19 infection. 3. Wheezing and bronchospasm. 4. Acute kidney injury. 5. Diabetes. Currently on meropenem to finish 7 days for aspiration pneumonia 1 dose of steroid was given today Prognosis is poor
--- NOTE | 2019-10-08 12:37 | NUR ---
Received order for LTAC Eval. Called and spoke with daughter Nati Geller [phone]. Explained LTAC with her. She asked that MARIBELL call her niece (pt's granddaughter) Savanna Geller and discuss with her. States can go with whichever facility she chooses. MARIBELL called Savanna at [phone] and left a message for callback.
[2019-10-08] MEDS ORDERED: ALBUMIN 25% 25GM 100ML 0.25 GM/ML BTL IV SCH (13:00)
[2019-10-08] MEDS: LEVALBUTEROL HCL SOLN NEBU 1.25 MG/3 ML NEB INH SCH ×3 (13:00→17:46)
--- NOTE | 2019-10-08 13:18 | NUR ---
Assignment Desk Editor called pt's daughter, Shanna, for follow up. Pt's daughter is hopeful that her father will improve and "get out of ICU." Pt's daughter states she hopes he will be well enough to "transfer to another facility" soon. Pt's daughter states she "believes in miracles." Assignment Desk Editor provided empathic pastoral listening and prayer. Reminded pt's daughter of Assignment Desk Editor services and availability. Pt's daughter expressed appreciation for call and support. Will continue to follow as able. ROBIN JUAREZ Assignment Desk Editor Spiritual Care Department O: [phone]
--- NOTE | 2019-10-08 14:21 | NUR ---
Received call back from pt's granddaughter Savanna Geller. Discussed LTAC and facilities in the area. She gave choice for [facility]. Referral was faxed to [phone]. Sahra Branch with [facility] was notified of referral.
[2019-10-08] MEDS ORDERED: LEVALBUTEROL HCL SOLN NEBU 1.25 MG/3 ML NEB ONE (15:16)
[2019-10-08] MEDS: MICAFUNGIN SODIUM 100 ML IV SCH (15:51)
--- NOTE | 2019-10-08 16:00 | NUR ---
Okay to leave patient in prone position at this time per Dr Martinez.
--- NOTE | 2019-10-08 17:26 | NUR ---
Nutrition Intervention Note RD Recommendation(s) for Physician: -Please modify TF to high protein peptide formula, Vital HP with goal rate of 50ml/hr, to provide 1200kcal, 105g protein. -Water flushes/fluid management per MD. Plan of Care: RD following, monitoring for tolerance and adequacy, TF rec Nutrition reason for involvement: f/u RD Assessment 10/07: Follow up. Chart reviewed. Pt remains intubated and sedated. TF is infusing at 10 mL/hr per documentation not meeting needs. Pt was placed in the prone position per MD note. Current tube feed recommendations remain appropriate. Will continue to monitor. 10/02: Follow up. Pt remains intubated and sedated, no Propofol and no pressor support. Pt continues on TF of Glucerna 1.2 at 25 ml/hr currently- not meeting needs. No BM documented. Current TF rec's remain appropriate. Chart reviewed. Will continue to monitor. 09/28 79yo M, who was admitted for COVID PNA. Currently ventilated and intubated. TF order was placed this morning. Levophed has turned down to 5mcg/min. Pt is on Fentanyl and Versed for sedation. No past medical record in [facility]. Principal Problems/Diagnoses: 1. Acute respiratory failure. 2. Viral pneumonia and COVID-19. PMH: Hypertension, hyperlipidemia, heart disease I/O: 3600/2100 GI: last recorded BM 10/05 Skin: L cheek wound Labs: 10/07: Na 139, K 4.9, BUN 19, Cr 0.83, Glu 115, Total Bili 2.3, AST 38 10/02: Na 148, K 4.9, BUN 63, Cr 1.19, Gluc 107, POC Gluc 127-210 (09/28) BUN 41 H, AST 43 H, ALT 74 H Meds: methylprednisolone, reglan, pepcid, fentanyl, antibiotic, rocuronium, norepinephrine, lactulose, lasix, colace, zofran Ht: 65in Wt: 197 lbs (10/07) 189 lbs (10/02)- questionable wt change, 205lb (09/27) BMI: 32.8 kg/m2 IBW: 136lb +/-10% Malnutrition Evaluation (09/28) Unable to evaluate at this time, due to COVID protocol. Nutrition Prescription (Diet Order): Nepro @ 40 mL/hr (provides 1728 kcal, 78 g protein) tube feed is infusing at 10 mL/hr Estimated Nutritional Needs: Calories: 1023 1302kcal (11-14kcal/kg) Weight used: 205 lbs Protein: 93-154g (1.5-2.5g/kg) Weight used: IBW Diet Adequacy: Not meeting calorie needs, Not meeting protein needs Tolerance: tube feed is infusing at low rate of 10 mL/hr Diet Education Needs Assessment: Diet education not indicated, patient on temporary/transition diet. Nutrition Care Level: high not meeting needs Nutrition Diagnosis: Inadequate oral intake related to current medical status (vent) as evidenced by pt requiring EN as main source of nutrition. Goal: Patient will meet 75-100% of estimated needs by follow up Progress: not progressing Interventions: Composition, Rate, Route, Recommended modifications Monitoring/Evaluation: Total energy intake, Total protein intake, Formula/Solution, Weight change Signed: Taty Robertson RD, LD
[2019-10-08] MEDS ORDERED: LEVALBUTEROL 15 GM AERO IH PRN (19:00)
[2019-10-08] MEDS: LEVALBUTEROL 15 GM AERO IH SCH (19:30)
[2019-10-08] MEDS: ATORVASTATIN 40 MG TAB NG SCH (21:04)
[2019-10-08 22:44] LABS: ABG PCO2 62 mmHg (35-45); ABG PH 7.28 (7.35-7.45)
[2019-10-08 22:45] LABS: ABG HCO3 29 mmol/L (22-26); ABG PO2 64 mmHg (80-105); ABG TCO2 31
[2019-10-09] VITALS (25 sets, daily range): BP systolic 103–162; BP diastolic 39–63
--- NOTE | 2019-10-09 00:56 | Progress Note ---
DATE: 10/08/2019 Medicine Progress Note SUBJECTIVE: The patient was seen earlier this afternoon approximately around 1:00 p.m. The patient is still at baseline with no change. Still intubated. LABORATORY DATA: Labs show white count 14, hemoglobin 8.3, hematocrit 26, platelets of 150. Chemistry, sodium 139, potassium 4.2, chloride 104, bicarb 27, anion gap of 12. BUN 19, creatinine is 0.83, glucose is 115. MICROBIOLOGY: Nothing new. IMAGING STUDIES: Nothing new. PHYSICAL EXAMINATION: VITAL SIGNS: Temperature 98.5, pulse 91, respiratory rate is 20, blood pressure 113/46, pulse ox 91%. He is on FiO2 of 95%. GENERAL: Intubated and sedated. PULMONARY: Intubated and sedated. CARDIOVASCULAR: Positive S1 and S2. No murmurs, rubs, or gallops appreciated. GI: Abdomen is soft, nondistended, and nontender to palpation. Bowel sounds present. MUSCULOSKELETAL: He is sedated and intubated. NEUROLOGIC: Unable to assess. SKIN: Intact. Warm to touch. Good cap refill. EXTREMITIES: No edema. Good range of motion throughout. IMPRESSION: 1. Acute respiratory failure, secondary to coronavirus pneumonia, intubated and sedated on a mechanical ventilator. 2. Viral pneumonia, secondary to coronavirus disease 2018. 3. Acute kidney injury with mild hyperkalemia -- resolved. 4. Metabolic acidosis -- resolved. 5. Mild hypernatremia. PLAN: At this time, the patient maintained to be intubated and sedated on the mechanical ventilation. His electrolytes improved tremendously. Continue with Nepro tube feeds. Lovenox for DVT prophylaxis. ID, Pulmonary, Critical Care, and Cardiology are all following. We are in the process of possibly doing an LTAC referral. The patient seems to be long-term on the mechanical ventilation. Discussed with Case Management. MD SRIDHAR Manuel/MISAEL /[id number]
[2019-10-09] MEDS: FENTANYL 2000MCG/NS 250 250 ML IV PRN ×3 (02:02→23:00)
[2019-10-09] MEDS: LEVALBUTEROL 15 GM AERO IH SCH ×4 (02:30→19:30)
[2019-10-09] MEDS: ROCURONIUM BROMIDE 250 MG in SODIUM CHLORIDE 0.9% 250ML 225 ML IV SCH ×2 (04:41→16:58)
[2019-10-09] MEDS: MIDAZOLAM HCL 5MG/ML 10ML VIAL 100 ML IV PRN ×3 (04:55→22:26)
[2019-10-09] MEDS: METOCLOPRAMIDE HCL 10 MG/2ML VIAL IV SCH ×3 (05:06→16:59)
[2019-10-09] MEDS: MEROPENEM 500MG/ NS 50ML 50 ML IV SCH ×2 (05:06→16:15)
[2019-10-09 05:26] LABS: ALANINE AMINOTRANSFERASE 36 IU/L (0-55); ALKALINE PHOSPHATASE 46 IU/L (40-150); ANION GAP 13.1 mmol/L (8-16); BLOOD UREA NITROGEN 25 mg/dL (7-26); BUN/CREATININE RATIO 25 (6-25); CALCIUM 8.9 mg/dL (8.4-10.2); CARBON DIOXIDE 29 mmol/L (22-29); CHLORIDE 102 mmol/L (98-107); CREATININE, SERUM 1.02 mg/dL (0.72-1.25); EST GLOMERULAR FILTRATION RATE > 60 ML/MIN (60-); GLUCOSE 141 mg/dL (74-118); POTASSIUM 4.1 mmol/L (3.5-5.1); SODIUM 140 mmol/L (136-145)
[2019-10-09 05:59] LABS: BASOPHILS % 0.1 % (0.0-1.0); HEMATOCRIT 21.9 % (38.2-49.6); LYMPHOCYTES # (AUTO) 0.4 (1.0-3.2); LYMPHOCYTES % 3.9 % (18.0-39.1); MEAN CORPUSCULAR HEMOGLOBIN 31.1 pg (28-32); MEAN CORPUSCULAR HGB CONC 31.1 g/dL (31-35); MONOCYTES # (AUTO) 0.1 (0.2-0.8); MONOCYTES % 1.4 % (4.4-11.3); NEUTROPHILS % 93.6 % (38.7-80.0); PLATELET COUNT 128 x10e3/uL (140-360); RED BLOOD COUNT 2.19 x10e6/uL (4.3-5.7); RED CELL DISTRIBUTION WIDTH 12.6 % (11.7-14.4)
[2019-10-09 06:06] LABS: HEMOGLOBIN 6.8 g/dL (14.0-18.0)
[2019-10-09] MEDS ORDERED: SODIUM CHLORIDE 0.9% 250ML 250 ML IV SCH ×2 (06:30→11:00)
--- NOTE | 2019-10-09 07:00 | NUR ---
Chair documented in Turn Q2H flowsheet to indicate proned status
[2019-10-09 07:26] LABS: LYMPHOCYTES % (MANUAL) 2 % (19-48); MONOCYTES % (MANUAL) 1 % (3.4-9.0); MYELOCYTES % (MANUAL) 1 % (0-0); NEUTROPHILS % (MANUAL) 96 % (40-74); PLATELET ESTIMATE SLIGHTLY DECREASED; PLATELET MORPHOLOGY COMMENT NORMAL; RBC MORPHOLOGY COMMENT NORMAL
--- NOTE | 2019-10-09 08:06 | NUR ---
Still pending [facility] approval. Per Sahra pt currently on too high FiO2, PEEP and sedation.
[2019-10-09] MEDS: ENOXAPARIN 30 MG/0.3 ML SYR SC SCH (08:35)
[2019-10-09] MEDS: FUROSEMIDE INJ 10 MG/ML 4 ML VIAL IV SCH ×2 (08:35→21:11)
[2019-10-09] MEDS: ASPIRIN 81 MG CHEW TAB NG SCH (08:35)
[2019-10-09] MEDS: FAMOTIDINE 20 MG/2 ML VIAL IV SCH ×2 (08:35→21:11)
[2019-10-09 09:21] LABS: ABG HCO3 28 mmol/L (22-26); ABG PCO2 56 mmHg (35-45); ABG PO2 69 mmHg (80-105)
[2019-10-09 09:22] LABS: ABG TCO2 29
[2019-10-09] MEDS ORDERED: ACETAMINOPHEN 325 MG TAB PO STA (10:54)
--- NOTE | 2019-10-09 11:07 | NUR ---
Only one unit of blood to be given per Dr Martinez
--- NOTE | 2019-10-09 11:18 | Progress Note ---
DATE: Pulmonary Critical Care Progress Note SUBJECTIVE: The patient remains in the prone position. He is currently on a PRVC mode of ventilation at a rate of 30. His FiO2 is 100% and his PEEP is set at 12. He remains on Versed and fentanyl. He is also on rocuronium. PHYSICAL EXAMINATION: VITAL SIGNS: The patient is afebrile. The blood pressure is 131/50 and the saturation is 91%. His pulse is 87. HEENT: Shows no facial swelling or erythema. There is an oral endotracheal tube in place. LYMPHATIC: Shows no submandibular, cervical, or supraclavicular adenopathy. CARDIAC: Reveals regular rate and rhythm with normal S1 and S2. LUNGS: Auscultation of lungs reveals rhonchorous breath sounds bilaterally. There is no wheezing. ABDOMEN: Soft and nontender. There is no rebound or guarding. EXTREMITIES: Shows no leg edema or calf tenderness. There is no cyanosis or clubbing. SKIN: Shows no rashes. NEUROLOGICAL: Shows no focal abnormalities. LABORATORY DATA: The BUN to creatinine ratio is 25 to 1.02. The other electrolytes are within normal limits and the albumin is 3. The hemoglobin is 6.8 and the white blood cell count is 9.6. The platelet count is 128. IMPRESSION: 1. Acute respiratory failure. 2. Viral pneumonia and COVID-19 infection. 3. Acute kidney injury. 4. Diabetes. 5. Wheezing and bronchospasm. PLAN: 1. Continue current ventilator settings and repeat ABG. 2. Continue Versed and fentanyl. 3. Complete antibiotics. 4. Lovenox. 5. Continue bronchodilators. 6. Transfuse packed red blood cells today. 7. Prognosis remains poor. Greater than 35 minutes in direct critical care time. Иван Martinez MD [facility]/MODL /[id number]
--- NOTE | 2019-10-09 12:54 | NUR ---
this is infectious disease progress note for 10/09/2019 Patient seen and examined and chart reviewed remains in the intensive care unit The patient remains in the prone position. He is currently on a PRVC mode of ventilation at a rate of 30. His FiO2 is 100% and his PEEP is set at 12. He remains on Versed and fentanyl. He is also on rocuronium. PHYSICAL EXAMINATION: VITAL SIGNS: The patient is afebrile. The blood pressure is 131/50 and the saturation is 91%. His pulse is 87. HEENT: Shows no facial swelling or erythema. There is an oral endotracheal tube in place. LYMPHATIC: Shows no submandibular, cervical, or supraclavicular adenopathy. CARDIAC: Reveals regular rate and rhythm with normal S1 and S2. LUNGS: Auscultation of lungs reveals rhonchorous breath sounds bilaterally. There is no wheezing. ABDOMEN: Soft and nontender. There is no rebound or guarding. EXTREMITIES: Shows no leg edema or calf tenderness. There is no cyanosis or clubbing. SKIN: Shows no rashes. NEUROLOGICAL: Shows no focal abnormalities. LABORATORY DATA: The BUN to creatinine ratio is 25 to 1.02. The other electrolytes are within normal limits and the albumin is 3. The hemoglobin is 6.8 and the white blood cell count is 9.6. The platelet count is 128. IMPRESSION: 1. Acute respiratory failure. 2. Viral pneumonia and COVID-19 infection. 3. Acute kidney injury. 4. Diabetes. 5. Wheezing and bronchospasm. Aspiration pneumonia and is currently meropenem started October 04 To finish 7 days concern aspiration
[2019-10-09] MEDS: MICAFUNGIN SODIUM 100 ML IV SCH (15:25)
--- NOTE | 2019-10-09 18:31 | Progress Note ---
DATE: 10/09/2019 Cardiology Progress Note. SUBJECTIVE: Intubated and sedated prone position. OBJECTIVE: VITAL SIGNS: Temperature 97 degrees, heart rate 80, respiratory rate 30, blood pressure 120/49, O2 saturation 97% on vent support. GENERAL: Intubated and sedated in prone position. HEENT: ET tube in place. NECK: Supple. CHEST: Bilateral decreased breath sounds. CARDIOVASCULAR: Regular rate and rhythm. Normal S1, S2. ABDOMEN: Soft. Bowel sounds positive. EXTREMITIES: Trace edema. CARDIOVASCULAR MEDICATIONS: Reviewed. Furosemide 40 mg IV every 12 hours, Lovenox 30 mg every 12 hours, atorvastatin 40 mg at bedtime, hydralazine p.r.n. LABORATORY DATA: Studies reviewed. White blood cells 9, hemoglobin 6.8 down from 8.3, platelets 128,000. PTT 52, creatinine 1, glucose 162, AST 35, ALT 36, alkaline phosphatase 46. ASSESSMENT AND PLAN: 1. An 79-year-old man with CAD, severe sepsis, septic shock, COVID-19 infection, community-acquired pneumonia, acute respiratory failure, history of hypertension and anemia as well as CAD with previous coronary stent. Check monitor H and H, consider PRBC transfusion as needed, 1 unit ordered today. 2. Hold Lovenox for today and recheck H and H again in a.m. 3. Hold aspirin today and recheck in a.m. H and H. 4. Monitor blood pressures as needed for blood pressure less than 65 mean arterial. MD REMY Aly/MISAEL /[id number]
[2019-10-09] MEDS: NOREPINEPHRINE INJ 4MG/4ML 8 MG in DEXTROSE 5% 250ML 250 ML IV SCH (19:30)
[2019-10-09 20:16] LABS: ABG HCO3 30 mmol/L (22-26); ABG PCO2 53 mmHg (35-45); ABG PH 7.36 (7.35-7.45); ABG PO2 76 mmHg (80-105); ABG TCO2 31
[2019-10-09] MEDS: ATORVASTATIN 40 MG TAB NG SCH (21:11)
--- NOTE | 2019-10-09 22:35 | Progress Note ---
DATE: 10/09/2019 Medicine Progress Note SUBJECTIVE: The patient is still at baseline. No overnight events. He is still intubated. Still requiring significant amount of oxygen. LABORATORY DATA: Labs show white count 9.6, hemoglobin 6.8, hematocrit 21.9, platelets of 128. Coagulation PT is 52. Chemistry, sodium 140, potassium 4.1, chloride 102, bicarb 29, anion gap of 13. BUN is 25, creatinine is 1, glucose is 141. ABG shows a pH of 7.3, pCO2 of 53, PO2 of 76, bicarbonate of 30. MICROBIOLOGY: All cultures were negative. IMAGING STUDIES: None. PHYSICAL EXAMINATION: VITAL SIGNS: Temperature 97.6, pulse 75, respirations 30, blood pressure 135/52, pulse ox 98% on mechanical ventilator. GENERAL: Intubated and sedated. PULMONARY: Intubated and sedated. CARDIOVASCULAR: Positive S1 and S2. No murmurs, rubs, or gallops appreciated. GI: Abdomen is soft, nondistended, and nontender to palpation. Bowel sounds present. MUSCULOSKELETAL: Strength unable to assess. NEUROLOGIC: Unable to assess. SKIN: Intact. Warm to touch. Good cap refill. PSYCHIATRIC: Normal affect and mood. EXTREMITIES: No edema. Good range of motion throughout. IMPRESSION: 1. Acute respiratory failure, secondary to coronavirus pneumonia, intubated and sedated on mechanical ventilator. 2. Coronavirus disease 2019 pneumonia, viral pneumonia. 3. Acute kidney injury with mild hyperkalemia -- resolved. 4. Metabolic acidosis -- resolved. 5. Mild hyponatremia -- resolved. 6. Anemia, status post blood transfusion given. PLAN: At this time, the patient is still requiring significant amount of oxygenation, increased PEEP, and FiO2. He is still intubated and sedated on rocuronium. At this time, electrolytes were stable. Hemoglobin was low. 2 units packed RBCs were given. He is on Nepro for tube feeds. He is on Lovenox for DVT prophylaxis, which we will monitor his hemoglobin very closely. ID, Pulmonary, Critical Care, Cardiology are all following. We are pending LTAC referral due to the fact he is on significant amount of oxygen and elevated PEEP at this time. Once he is much more stable, he can be transferred. MD SRIDHAR Manuel/MISAEL /[id number]
[2019-10-10] VITALS (27 sets, daily range): BP systolic 114–174; BP diastolic 43–83
[2019-10-10] MEDS: METOCLOPRAMIDE HCL 10 MG/2ML VIAL IV SCH ×4 (00:21→16:26)
[2019-10-10] MEDS: LEVALBUTEROL 15 GM AERO IH SCH ×3 (01:00→16:38)
[2019-10-10 05:01] LABS: BASOPHILS % 0.4 % (0.0-1.0); EOSINOPHILS # (AUTO) 0.1 (0.0-0.4); EOSINOPHILS % 0.6 % (0.0-6.0); HEMATOCRIT 27.5 % (38.2-49.6); LYMPHOCYTES # (AUTO) 0.7 (1.0-3.2); LYMPHOCYTES % 6.4 % (18.0-39.1); MEAN CORPUSCULAR HEMOGLOBIN 32.8 pg (28-32); MEAN CORPUSCULAR HGB CONC 32.7 g/dL (31-35); MEAN CORPUSCULAR VOLUME 100.4 fL (81-99); MONOCYTES # (AUTO) 0.4 (0.2-0.8); MONOCYTES % 3.7 % (4.4-11.3); NEUTROPHILS # (AUTO) 9.2 (2.1-6.9); NEUTROPHILS % 86.3 % (38.7-80.0); PLATELET COUNT 161 x10e3/uL (140-360); RED BLOOD COUNT 2.74 x10e6/uL (4.3-5.7); RED CELL DISTRIBUTION WIDTH 13.5 % (11.7-14.4)
[2019-10-10 05:23] LABS: ALANINE AMINOTRANSFERASE 58 IU/L (0-55); ALBUMIN 2.9 g/dL (3.5-5.0); ALBUMIN/GLOBULIN RATIO 0.9 (0.8-2.0); ALKALINE PHOSPHATASE 111 IU/L (40-150); ANION GAP 14.4 mmol/L (8-16); BLOOD UREA NITROGEN 37 mg/dL (7-26); BUN/CREATININE RATIO 35 (6-25); CARBON DIOXIDE 29 mmol/L (22-29); CHLORIDE 101 mmol/L (98-107); CREATININE, SERUM 1.07 mg/dL (0.72-1.25); EST GLOMERULAR FILTRATION RATE > 60 ML/MIN (60-); GLUCOSE 105 mg/dL (74-118); POTASSIUM 3.4 mmol/L (3.5-5.1); SODIUM 141 mmol/L (136-145)
[2019-10-10] MEDS: MEROPENEM 500MG/ NS 50ML 50 ML IV SCH ×2 (05:38→16:26)
[2019-10-10] MEDS: FUROSEMIDE INJ 10 MG/ML 4 ML VIAL IV SCH ×2 (07:33→20:23)
[2019-10-10] MEDS: FAMOTIDINE 20 MG/2 ML VIAL IV SCH ×2 (07:33→20:23)
[2019-10-10] MEDS: MIDAZOLAM HCL 5MG/ML 10ML VIAL 100 ML IV PRN ×3 (07:34→22:32)
--- NOTE | 2019-10-10 10:44 | Progress Note ---
DATE: SUBJECTIVE: The patient is afebrile. He has remained in the prone position overnight. He is still on a PRVC mode of ventilation at a rate of 30 with a tidal volume of 400. His FiO2 is set at 80%. His PEEP is set at 10. PHYSICAL EXAMINATION: VITAL SIGNS: The blood pressure is 154/56 and saturation is 93%. The pulse is 100. HEENT: No facial swelling or erythema. LYMPHATIC: No submandibular, cervical, or supraclavicular adenopathy. CARDIAC: Regular rate and rhythm with normal S1, S2. LUNGS: Auscultation of lungs reveals rhonchorous breath sounds bilaterally. There is no wheezing. ABDOMEN: Soft, nontender. There is no rebound or guarding. EXTREMITIES: No leg edema or calf tenderness. There is no cyanosis or clubbing. SKIN: No rashes. NEUROLOGICAL: No focal abnormalities. The patient is sedated on Versed and fentanyl as well as rocuronium. LABORATORY DATA: Hemoglobin is improved to 9 after receiving packed red blood cells today. White blood cell count is 10.7, and the platelet count is 161. BUN to creatinine ratio is 37 to 1.02. The other electrolytes are within normal limits. Potassium is low at 3.4. Albumin is 2.9. IMPRESSION: 1. Acute respiratory failure. 2. Viral pneumonia and coronavirus disease-19 infection. 3. Acute kidney injury. 4. Diabetes. PLAN: 1. Continue current ventilator settings and monitor ABG. 2. Continue Versed and fentanyl. 3. Continue Lovenox. 4. Complete antibiotics. 5. Continue bronchodilators. 6. Albumin with scheduled Lasix. Greater than 35 minutes in direct critical care time. Иван Martinez MD [facility] /[id number]
[2019-10-10] MEDS: FENTANYL 2000MCG/NS 250 250 ML IV PRN ×2 (10:59→18:30)
[2019-10-10 11:38] LABS: ABG HCO3 32 mmol/L (22-26); ABG PCO2 53 mmHg (35-45); ABG PH 7.38 (7.35-7.45); ABG PO2 70 mmHg (80-105); ABG TCO2 33
[2019-10-10] MEDS ORDERED: POTASSIUM CHLORIDE 20MEQ/100ML 100 ML IV ONE (12:00)
--- NOTE | 2019-10-10 14:31 | NUR ---
Additional clinicals faxed to [facility].
--- NOTE | 2019-10-10 15:05 | NUR ---
The patient is afebrile. He has remained in the prone position overnight. He is still on a PRVC mode of ventilation at a rate of 30 with a tidal volume of 400. His FiO2 is set at 80%. His PEEP is set at 10. PHYSICAL EXAMINATION: VITAL SIGNS: The blood pressure is 154/56 and saturation is 93%. The pulse is 100. HEENT: No facial swelling or erythema. LYMPHATIC: No submandibular, cervical, or supraclavicular adenopathy. CARDIAC: Regular rate and rhythm with normal S1, S2. LUNGS: Auscultation of lungs reveals rhonchorous breath sounds bilaterally. There is no wheezing. ABDOMEN: Soft, nontender. There is no rebound or guarding. EXTREMITIES: No leg edema or calf tenderness. There is no cyanosis or clubbing. SKIN: No rashes. NEUROLOGICAL: No focal abnormalities. The patient is sedated on Versed and fentanyl as well as rocuronium. LABORATORY DATA: Hemoglobin is improved to 9 after receiving packed red blood cells today. White blood cell count is 10.7, and the platelet count is 161. BUN to creatinine ratio is 37 to 1.02. The other electrolytes are within normal limits. Potassium is low at 3.4. Albumin is 2.9.
--- NOTE | 2019-10-10 16:09 | Progress Note ---
DATE: SUBJECTIVE: Mr. Geller remains in the prone position. The patient remains on the vent, intensive care unit. Vent setting reviewed. PHYSICAL EXAMINATION: GENERAL: Currently intubated, sedated. HEENT: He is not icteric. NECK: Supple. CHEST: Crackles. HEART: S1 and S2. ABDOMEN: Soft. IMPRESSION: COVID-19, respiratory failure, and diabetes mellitus. Continue with supportive care as ordered. We will consider chest CT and see if that will help. We will follow. MD SANTO [place]/LIAML /[id number]
[2019-10-10] MEDS: MICAFUNGIN SODIUM 100 ML IV SCH (16:26)
--- NOTE | 2019-10-10 17:55 | Progress Note ---
DATE: 10/10/2019 Cardiology Progress Note SUBJECTIVE: Intubated, sedated, in prone position. OBJECTIVE: VITAL SIGNS: Temperature 99.8, heart rate 102, on telemetry sinus tachycardia, respiratory rate 30, blood pressure 137/48, and O2 saturation 92% on vent support. GENERAL: Intubated, sedated. NECK: Supple. CHEST: With rales and decreased breath sounds. CARDIOVASCULAR: Regular rate and rhythm. Normal S1 and S2. ABDOMEN: Soft. Bowel sounds positive. EXTREMITIES: Trace edema. CARDIOVASCULAR MEDICATIONS: Reviewed. Furosemide 40 mg IV q.12 hours, atorvastatin 40 mg at bedtime, and hydralazine p.r.n. STUDIES: Reviewed. White blood cells 10.6, hemoglobin 9, following transfusion after dropped to 6.8, and platelets 161. Creatinine 1, sodium 141, and potassium 3.4. ASSESSMENT AND PLAN: Acute respiratory failure in the setting of viral pneumonia and COVID-19 infection, acute kidney injury, improved, diabetes mellitus, acute anemia, coronary artery disease, status post severe sepsis with septic shock, now off pressors. RECOMMEND: Aspirin and Lovenox held given drop in H and H. Monitor H and H over next 24 hours. Fecal occult blood test ordered and pending. Continue rest of cardiovascular medications. Augustus Orr MD [facility] /[id number]
[2019-10-10] MEDS: ROCURONIUM BROMIDE 250 MG in SODIUM CHLORIDE 0.9% 250ML 225 ML IV SCH (18:05)
[2019-10-10] MEDS: NOREPINEPHRINE INJ 4MG/4ML 8 MG in DEXTROSE 5% 250ML 250 ML IV SCH (18:59)
[2019-10-10] MEDS: ATORVASTATIN 40 MG TAB NG SCH (20:23)
--- NOTE | 2019-10-10 22:06 | Progress Note ---
DATE: 10/10/2019 Medicine Progress Note SUBJECTIVE: The patient is still intubated. He is in a prone position. Still requiring significant amount of oxygenation. PHYSICAL EXAMINATION: VITAL SIGNS: Temperature is 99, pulse 100, respiratory rate is 30, blood pressure 115/64, and pulse ox 91% on 80% FiO2. GENERAL: Intubated and sedated. PULMONARY: Intubated and sedated. CARDIOVASCULAR: Positive S1 and S2. No murmurs, rubs, or gallops appreciated. ABDOMEN: Soft, nondistended, and nontender to palpation. Bowel sounds present. MUSCULOSKELETAL: He is intubated and sedated. NEUROLOGIC: Sedated. SKIN: Intact. Warm to touch. Good cap refill. LABORATORY DATA: Show white count 10.6, hemoglobin 9, hematocrit is 27.5, and platelets of 161. Chemistry; sodium 141, potassium 3.4, chloride 101, bicarb 29, anion gap of 14, BUN is 37, and creatinine is 1.07. MICROBIOLOGY: Sputum culture shows aspergillosis in which he was initiated on Micafungin. IMAGING STUDIES: None. IMPRESSION: 1. Acute respiratory failure secondary to coronavirus pneumonia, intubated and sedated on mechanical ventilator. 2. Coronavirus-19 pneumonia, viral pneumonia. 3. Acute kidney with mild hyperkalemia-resolved. 4. Metabolic acidosis-resolved. 5. Mild hyponatremia-resolved. 6. Anemia, status post blood transfusion given on 10/09/2019. 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 PLAN: At this time, the patient maintained on IV antibiotics as well as antifungal therapy. He still has significant amount of oxygenation. He is not stable for any LTAC at this time. He is still on sedation and rocuronium. Hemoglobin improved. Get morning labs. Nepro for tube feeds. Lovenox for DVT prophylaxis. Consultants involved ID, Pulmonary, Critical Care, and Cardiology. Continue with same plan of care and monitor closely. MD SRIDHAR Manuel/[facility] /[id number]
--- NOTE | 2019-10-10 22:20 | Diagnostic Imaging Report ---
EXAMINATION: CHEST SINGLE (PORTABLE) INDICATION: ^resp failure ^[id number] ^2114 COMPARISON: 10/07/2019 FINDINGS: AP view TUBES and LINES: Stable endotracheal and nasogastric tubes. Left internal jugular central line in place with tip projecting over left mediastinum. LUNGS: Lungs are well inflated. Diffuse bilateral airspace opacities are again seen. PLEURA: No significant pleural effusion or pneumothorax. HEART AND MEDIASTINUM: The cardiomediastinal silhouette is obscured. BONES AND SOFT TISSUES: No acute osseous lesion. Soft tissues are unremarkable. UPPER ABDOMEN: No free air under the diaphragm. IMPRESSION: Not significantly changed diffuse bilateral airspace opacities, representing edema and/or pneumonia. Left internal jugular central line tip projecting over left mediastinum and does not cross the midline toward SVC. Recommend clinical correlation. Signed by: Dr. Jose Woodson MD on 10/10/2019 10:16 PM
[2019-10-11] VITALS (27 sets, daily range): BP systolic 105–157; BP diastolic 39–61
[2019-10-11] MEDS: METOCLOPRAMIDE HCL 10 MG/2ML VIAL IV SCH ×4 (00:04→17:19)
[2019-10-11] MEDS: FENTANYL 2000MCG/NS 250 250 ML IV PRN ×3 (02:59→19:44)
[2019-10-11] MEDS: MIDAZOLAM HCL 5MG/ML 10ML VIAL 100 ML IV PRN ×3 (03:13→18:18)
[2019-10-11 04:18] LABS: BASOPHILS % 0.4 % (0.0-1.0); EOSINOPHILS # (AUTO) 0.2 (0.0-0.4); EOSINOPHILS % 2.1 % (0.0-6.0); HEMATOCRIT 30.2 % (38.2-49.6); HEMOGLOBIN 9.7 g/dL (14.0-18.0); LYMPHOCYTES # (AUTO) 0.7 (1.0-3.2); LYMPHOCYTES % 6.6 % (18.0-39.1); MEAN CORPUSCULAR HEMOGLOBIN 31.9 pg (28-32); MEAN CORPUSCULAR HGB CONC 32.1 g/dL (31-35); MEAN CORPUSCULAR VOLUME 99.3 fL (81-99); MONOCYTES # (AUTO) 0.5 (0.2-0.8); MONOCYTES % 4.9 % (4.4-11.3); NEUTROPHILS # (AUTO) 8.7 (2.1-6.9); NEUTROPHILS % 83.6 % (38.7-80.0); PLATELET COUNT 195 x10e3/uL (140-360); RED BLOOD COUNT 3.04 x10e6/uL (4.3-5.7); RED CELL DISTRIBUTION WIDTH 13.4 % (11.7-14.4)
[2019-10-11 04:38] LABS: ALANINE AMINOTRANSFERASE 59 IU/L (0-55); ALBUMIN 2.7 g/dL (3.5-5.0); ALBUMIN/GLOBULIN RATIO 0.7 (0.8-2.0); ALKALINE PHOSPHATASE 128 IU/L (40-150); ANION GAP 14.7 mmol/L (8-16); BLOOD UREA NITROGEN 29 mg/dL (7-26); BUN/CREATININE RATIO 33 (6-25); CALCIUM 9.3 mg/dL (8.4-10.2); CARBON DIOXIDE 34 mmol/L (22-29); CHLORIDE 97 mmol/L (98-107); CREATININE, SERUM 0.89 mg/dL (0.72-1.25); EST GLOMERULAR FILTRATION RATE > 60 ML/MIN (60-); GLUCOSE 128 mg/dL (74-118); POTASSIUM 3.7 mmol/L (3.5-5.1); SODIUM 142 mmol/L (136-145)
[2019-10-11] MEDS: MEROPENEM 500MG/ NS 50ML 50 ML IV SCH ×2 (05:34→16:01)
[2019-10-11] MEDS: ROCURONIUM BROMIDE 250 MG in SODIUM CHLORIDE 0.9% 250ML 225 ML IV SCH ×2 (05:35→15:25)
[2019-10-11] MEDS: FAMOTIDINE 20 MG/2 ML VIAL IV SCH ×2 (07:37→20:11)
[2019-10-11] MEDS: FUROSEMIDE INJ 10 MG/ML 4 ML VIAL IV SCH ×2 (07:37→20:11)
[2019-10-11 10:31] LABS: ABG PH 7.35 (7.35-7.45)
[2019-10-11 10:32] LABS: ABG HCO3 35 mmol/L (22-26); ABG PCO2 64 mmHg (35-45); ABG PO2 73 mmHg (80-105); ABG TCO2 37
--- NOTE | 2019-10-11 10:59 | Progress Note ---
DATE: SUBJECTIVE: The patient is still on mechanical ventilation. He remains on a PRVC mode of ventilation at a rate of 30 with a tidal volume of 400. His PEEP is 14 and FiO2 is 100%. He is saturating in the low 90s. T-max is 100.2. OBJECTIVE: VITAL SIGNS: The blood pressure is 148/61 and the pulse is 112. HEENT: Shows no facial swelling or erythema. The oropharynx is normal. There is oral endotracheal tube. LYMPHATIC: Shows no submandibular, cervical, or supraclavicular adenopathy. CARDIAC: Reveals regular rate and rhythm with normal S1 and S2. LUNGS: Auscultation of lungs reveals rhonchus breath sounds bilaterally. There is no wheezing. ABDOMEN: Soft, nontender. There is no rebound or guarding. EXTREMITIES: Shows no leg edema or calf tenderness. There is no cyanosis or clubbing. SKIN: Shows no rashes. NEUROLOGICAL: Shows no focal abnormalities. LABORATORY DATA: The BUN to creatinine ratio is 29 to 0.89. The other electrolytes are within normal limits. The albumin is 2.7. The total bilirubin is 1.3. The AST and ALT are normal. RADIOGRAPHIC DATA: Chest x-ray shows bilateral infiltrates. ASSESSMENT: 1. Acute respiratory failure. 2. Viral pneumonia and coronavirus disease-19 infection. 3. Acute kidney injury. 4. Diabetes. PLAN: 1. Continue current ventilator settings and monitor ABG. 2. Place patient back in supine position. 3. Continue Versed and fentanyl. 4. Continue Lovenox. 5. Complete antibiotics. 6. Continue bronchodilators. 7. Prognosis remains poor. 8. Greater than 35 minutes in direct critical care time. Иван Martinez MD [facility] /[id number]
--- NOTE | 2019-10-11 11:54 | Progress Note ---
DATE: 10/11/2019 Cardiology Progress Note SUBJECTIVE: Mr. Geller remains intubated and sedated. OBJECTIVE: VITAL SIGNS: Temperature 99.9, heart rate 112, blood pressure 144/56, respiratory rate 30, O2 saturation 95%. GENERAL: Intubated and sedated. NECK: Supple. CHEST: With rales and decreased breath sounds. CARDIOVASCULAR: Regular rate and rhythm. Normal S1 and S2. ABDOMEN: Soft. Bowel sounds positive. EXTREMITIES: Trace edema. CARDIOVASCULAR MEDICATIONS: 1. Furosemide 40 mg every 12 hours. 2. Atorvastatin 40 mg at bedtime. 3. Hydralazine 10 mg q.4 hours. STUDIES: Reviewed. Sodium 142, potassium 3.7, creatinine 0.89, BUN 29, glucose 128. White blood cells 10, hemoglobin 9.7, platelets 195. INR 1. ASSESSMENT: 1. Coronary artery disease. 2. Coronavirus disease-2019 infection and community-acquired pneumonia. 3. Acute respiratory failure. 4. Anemia. RECOMMEND: Continue current cardiovascular medications and monitor H and H. Monitor for gross bleeding. MD REMY Aly/MISAEL /[id number]
--- NOTE | 2019-10-11 15:18 | Diagnostic Imaging Report ---
EXAMINATION: CHEST SINGLE (PORTABLE) INDICATION: Respiratory failure COMPARISON: Chest radiograph 10/07/2019 FINDINGS: LINES/TUBES:Support lines and tubes unchanged. LUNGS:Unchanged lower lung predominant bilateral airspace opacities. PLEURA:Possible small bilateral pleural effusions. No pneumothorax. MEDIASTINUM:The cardiomediastinal silhouette appears unchanged in size and shape. BONES/SOFT TISSUES:No acute osseous injury. ABDOMEN:No free air under the diaphragm. IMPRESSION: No significant interval change. Signed by: Ken Cleaning MD on 10/11/2019 3:14 PM
[2019-10-11] MEDS: MICAFUNGIN SODIUM 100 ML IV SCH (16:02)
[2019-10-11] MEDS: ATORVASTATIN 40 MG TAB NG SCH (20:11)
--- NOTE | 2019-10-11 23:46 | Progress Note ---
DATE: 10/11/2019 Medicine Progress Note SUBJECTIVE: Still intubated and sedated. LABORATORY DATA: Labs reviewed and stable. CBC stable. Chemistry stable. MICROBIOLOGY: Sputum culture shows aspergillosis noted, being managed by ID. IMAGING STUDIES: Chest x-ray shows no significant change. PHYSICAL EXAMINATION: VITAL SIGNS: Reviewed. Still FiO2 of 90% on mechanical ventilator. He is afebrile. Blood pressure stable. GENERAL: Intubated and sedated. PULMONARY: Intubated and sedated. CARDIOVASCULAR: Positive S1 and S2. No murmurs, rubs, or gallops appreciated. ABDOMEN: Soft, nondistended, nontender to palpation. Bowel sounds present. MUSCULOSKELETAL: Currently sedated. NEUROLOGICAL: Currently sedated. SKIN: Intact, warm to touch. Good cap refill. IMPRESSION: 1. Acute respiratory failure secondary to coronavirus disease 2019 pneumonia, intubated and sedated on a mechanical ventilator. 2. Coronavirus disease 2019 viral pneumonia. 3. Acute kidney injury with mild hyperkalemia-resolved. 4. Metabolic acidosis, resolved. 5. Mild hyponatremia-resolved. 6. Anemia, status post blood transfusion given on 10/09/2019. 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 PLAN: The patient is on IV antibiotics and antifungal, being managed by ID. Still on a mechanical ventilator on sedation. Pending LTAC. Nepro for tube feeds. Lovenox for DVT prophylaxis. CONSULTANTS: ID, Pulmonary Critical Care, and Cardiology. MD SRIDHAR Manuel/MODMarie /[id number]
[2019-10-12] VITALS (24 sets, daily range): BP systolic 83–142; BP diastolic 33–70
[2019-10-12] MEDS: ACETAMINOPHEN 325 MG TAB PO PRN ×2 (00:06→18:19)
[2019-10-12] MEDS: METOCLOPRAMIDE HCL 10 MG/2ML VIAL IV SCH ×4 (00:18→17:43)
[2019-10-12] MEDS ORDERED: NOREPINEPHRINE 8 MG/D5W 250 ML 250 ML ONE (00:48)
[2019-10-12] MEDS: NOREPINEPHRINE INJ 4MG/4ML 8 MG in DEXTROSE 5% 250ML 250 ML IV SCH ×6 (01:02→19:30)
[2019-10-12 03:43] LABS: BASOPHILS # (AUTO) 0.1 (0.0-0.1); BASOPHILS % 0.4 % (0.0-1.0); EOSINOPHILS # (AUTO) 0.7 (0.0-0.4); EOSINOPHILS % 3.9 % (0.0-6.0); HEMATOCRIT 29.4 % (38.2-49.6); HEMOGLOBIN 9.2 g/dL (14.0-18.0); LYMPHOCYTES # (AUTO) 0.8 (1.0-3.2); LYMPHOCYTES % 4.4 % (18.0-39.1); MEAN CORPUSCULAR HEMOGLOBIN 30.9 pg (28-32); MEAN CORPUSCULAR HGB CONC 31.3 g/dL (31-35); MEAN CORPUSCULAR VOLUME 98.7 fL (81-99); MONOCYTES # (AUTO) 0.7 (0.2-0.8); MONOCYTES % 3.7 % (4.4-11.3); NEUTROPHILS % 83.5 % (38.7-80.0); PLATELET COUNT 252 x10e3/uL (140-360); RED BLOOD COUNT 2.98 x10e6/uL (4.3-5.7); RED CELL DISTRIBUTION WIDTH 13.7 % (11.7-14.4)
[2019-10-12 03:59] LABS: ALANINE AMINOTRANSFERASE 51 IU/L (0-55); ALBUMIN 2.3 g/dL (3.5-5.0); ALBUMIN/GLOBULIN RATIO 0.6 (0.8-2.0); ALKALINE PHOSPHATASE 135 IU/L (40-150); ANION GAP 13.7 mmol/L (8-16); BLOOD UREA NITROGEN 36 mg/dL (7-26); BUN/CREATININE RATIO 32 (6-25); CALCIUM 9.5 mg/dL (8.4-10.2); CARBON DIOXIDE 33 mmol/L (22-29); CHLORIDE 98 mmol/L (98-107); CREATININE, SERUM 1.11 mg/dL (0.72-1.25); EST GLOMERULAR FILTRATION RATE > 60 ML/MIN (60-); GLUCOSE 216 mg/dL (74-118); POTASSIUM 3.7 mmol/L (3.5-5.1); SODIUM 141 mmol/L (136-145)
[2019-10-12] MEDS: MEROPENEM 500MG/ NS 50ML 50 ML IV SCH (05:10)
[2019-10-12] MEDS: FAMOTIDINE 20 MG/2 ML VIAL IV SCH ×2 (11:10→20:51)
[2019-10-12] MEDS: FUROSEMIDE INJ 10 MG/ML 4 ML VIAL IV SCH (11:10)
[2019-10-12] MEDS: LACTULOSE SYRUP 20 GM/30 ML UDC PO PRN (14:00)
[2019-10-12 14:46] LABS: ABG HCO3 34 mmol/L (22-26); ABG PCO2 66 mmHg (35-45); ABG PH 7.31 (7.35-7.45); ABG PO2 65 mmHg (80-105); ABG TCO2 36
--- NOTE | 2019-10-12 14:46 | Progress Note ---
DATE: SUBJECTIVE: Mr. Geller remains in intensive care unit. The patient is intubated, sedated. OBJECTIVE: VITAL SIGNS: Stable currently. HEENT: Not icteric. NECK: Supple. CHEST: Crackles. HEART: S1 and S2. ABDOMEN: Soft. Bowel sounds present. EXTREMITIES: No edema. He is still running fever of 100. The patient, who is currently on Lasix and meropenem. LABORATORY DATA: White count today is 17.9, hemoglobin 9.2. Sodium 141, potassium 3.7, creatinine 1.1. IMPRESSION: Leukocytosis, concerned about infection. We will discontinue meropenem. Obtain blood cultures. Obtain sputum cultures. He is currently on Mycamine. His condition remains very ill. I will put him on cefepime and Flagyl. Obtain sputum culture. Check procalcitonin. Recheck CBC. MD SANTO [place]/MISAEL /[id number]
[2019-10-12 15:00] LABS: BASOPHILS % 0.4 % (0.0-1.0); EOSINOPHILS # (AUTO) 0.6 (0.0-0.4); EOSINOPHILS % 5.8 % (0.0-6.0); HEMATOCRIT 28.1 % (38.2-49.6); HEMOGLOBIN 8.6 g/dL (14.0-18.0); LYMPHOCYTES # (AUTO) 0.8 (1.0-3.2); LYMPHOCYTES % 7.6 % (18.0-39.1); MEAN CORPUSCULAR HEMOGLOBIN 30.6 pg (28-32); MEAN CORPUSCULAR HGB CONC 30.6 g/dL (31-35); MONOCYTES # (AUTO) 0.3 (0.2-0.8); NEUTROPHILS % 81.2 % (38.7-80.0); PLATELET COUNT 192 x10e3/uL (140-360); RED BLOOD COUNT 2.81 x10e6/uL (4.3-5.7); RED CELL DISTRIBUTION WIDTH 13.8 % (11.7-14.4)
[2019-10-12] MEDS: CEFEPIME 2 GM/NS 0.9% 100 ML 100 ML IV SCH (15:11)
[2019-10-12] MEDS: METRONIDAZOLE 500MG/NS 100ML 100 ML IV SCH ×2 (15:11→20:51)
[2019-10-12] MEDS: MICAFUNGIN SODIUM 100 ML IV SCH (15:11)
--- NOTE | 2019-10-12 16:29 | NUR ---
Nutrition Intervention Note RD Recommendation(s) for Physician: -Please modifying TF to high protein peptide formula, Vital HP with goal rate of 50ml/hr, to provide 1200kcal, 105g protein. -Water flushes/fluid management per MD. Plan of Care: RD following, monitoring for tolerance and adequacy, TF rec Nutrition reason for involvement: follow up RD Assessment 10/11: Follow up. Chart reviewed. Pt remains intubated and sedated. TF of Nepro is infusing at 40 mL/hr per documentation. Recommend modifying tube feeding to Vital High Protein to better meet pts estimated nutritional needs. Current tube feed recommendations remain appropriate. Will continue to monitor. 10/07: Follow up. Chart reviewed. Pt remains intubated and sedated. TF is infusing at 10 mL/hr per documentation not meeting needs. Pt was placed in the prone position per MD note. Current tube feed recommendations remain appropriate. Will continue to monitor. 10/02: Follow up. Pt remains intubated and sedated, no Propofol and no pressor support. Pt continues on TF of Glucerna 1.2 at 25 ml/hr currently- not meeting needs. No BM documented. Current TF rec's remain appropriate. Chart reviewed. Will continue to monitor. 09/28 79yo M, who was admitted for COVID PNA. Currently ventilated and intubated. TF order was placed this morning. Levophed has turned down to 5mcg/min. Pt is on Fentanyl and Versed for sedation. No past medical record in [facility]. Principal Problems/Diagnoses: 1. Acute respiratory failure. 2. Viral pneumonia and COVID-19. PMH: Hypertension, hyperlipidemia, heart disease I/O: 3193/2525 GI: last recorded BM 10/05 Skin: L cheek wound Labs: 10/11: Na 141, K 3.7, BUN 36, Cr 1.11, Glu 216, Total Bili 1.4, AST 42 10/07: Na 139, K 4.9, BUN 19, Cr 0.83, Glu 115, Total Bili 2.3, AST 38 10/02: Na 148, K 4.9, BUN 63, Cr 1.19, Gluc 107, POC Gluc 127-210 (09/28) BUN 41 H, AST 43 H, ALT 74 H Meds: reglan, lasix, pepcid, antibiotic, norepinephrine, Lipitor, fentanyl, rocuronium, lactulose, colace, zofran Ht: 65in Wt: 205 lbs (10/11) 197 lbs (10/07) 189 lbs (10/02)- questionable wt change, 205lb (09/27) BMI: 34.1 kg/m2 (using wt of 205 lbs) IBW: 136lb +/-10% Malnutrition Evaluation (09/28) Unable to evaluate at this time, due to COVID protocol. Nutrition Prescription (Diet Order): Nepro @ 40 mL/hr (provides 1728 kcal, 78 g protein) Estimated Nutritional Needs: Calories: 1023 1302kcal (11-14kcal/kg) Weight used: 205 lbs Protein: 93-154g (1.5-2.5g/kg) Weight used: IBW Diet Adequacy: Meeting calorie needs, Not meeting protein needs Tolerance: tolerating TF Diet Education Needs Assessment: Diet education not indicated, patient on temporary/transition diet. Nutrition Care Level: moderate Nutrition Diagnosis: Inadequate oral intake related to current medical status (vent) as evidenced by pt requiring EN as main source of nutrition. Goal: Patient will meet 75-100% of estimated needs by follow up Progress: TF is meeting >75% of estimated nutritional needs Interventions: Composition, Rate, Route, Recommended modifications Monitoring/Evaluation: Total energy intake, Total protein intake, Formula/Solution, Weight change Signed: Taty Robertson RD, DEYSI
--- NOTE | 2019-10-12 17:07 | Progress Note ---
DATE: SUBJECTIVE: The patient is afebrile. He is still requiring mechanical ventilation. He is on a PRVC at a rate of 30 with a tidal volume of 400. His FiO2 is set at 90%. His PEEP is set at 12. He remains on Levophed at 10 mcg. PHYSICAL EXAMINATION: VITAL SIGNS: The blood pressure is a 98/33. He is on 10 mcg of Levophed. He is on the above ventilator settings. His saturations are in the low 90s. HEENT: No facial swelling or erythema. LYMPHATIC: No submandibular, cervical, or supraclavicular adenopathy. CARDIAC: Regular rate and rhythm with normal S1, S2. LUNGS: Auscultation of lungs reveals rhonchorous breath sounds bilaterally. There is no wheezing. ABDOMEN: Soft, nontender. There is no rebound or guarding. EXTREMITIES: Examination of extremities shows no leg edema or calf tenderness. LABORATORY DATA: White blood cell count is 11.1, hemoglobin is 8.6. The platelet count is 182. The BUN to creatinine ratio is elevated at 36 and 1.11. The other electrolytes are within normal limits. The albumin is 2.3. Blood gas is 7.31, 66, and 65. RADIOGRAPHIC DATA: Chest x-ray shows bilateral infiltrates. IMPRESSION: 1. Acute respiratory failure. 2. Acute kidney injury. 3. Viral pneumonia and coronavirus disease-19 infection. 4. Diabetes. 5. Anemia. 6. Possible aspergillosis. PLAN: 1. Continue Micafungin along with current antibiotics. 2. Place the patient in prone position. 3. Continue to hold Lasix. 4. The patient will receive albumin. 5. Continue current enteral feedings. Greater than 35 minutes in direct critical care time. Иван Martinez MD [facility] /[id number]
[2019-10-12] MEDS: ALBUMIN 25% 25GM 100ML 100 ML IV SCH (17:43)
[2019-10-12] MEDS ORDERED: ALBUMIN 25% 25GM 100ML 0.25 GM/ML BTL IV SCH (18:00)
[2019-10-12] MEDS: FENTANYL CITRATE INJ 2,000 MCG in SODIUM CHLORIDE 0.9% 250ML 210 ML IV PRN (18:19)
[2019-10-12] MEDS: MIDAZOLAM HCL 50 MG in SODIUM CHLORIDE 0.9% 100 ML 90 ML IV PRN (18:20)
[2019-10-12] MEDS: ATORVASTATIN 40 MG TAB NG SCH (20:51)
[2019-10-12] MEDS: ROCURONIUM BROMIDE 250 MG in SODIUM CHLORIDE 0.9% 250ML 225 ML IV SCH (20:51)
--- NOTE | 2019-10-12 21:53 | Progress Note ---
DATE: 10/12/2019 Medicine Progress Note SUBJECTIVE: The patient is still intubated. Still has fever. PHYSICAL EXAMINATION: VITAL SIGNS: Temperature is 97.1, pulse 104, T-max was greater than 100, respiratory rate is 30, blood pressure 111/39, pulse ox 96% on 80% FiO2 on a mechanical ventilator. GENERAL: Intubated and sedated. PULMONARY: Intubated and sedated. CARDIOVASCULAR: Positive S1, S2. No murmurs or gallops appreciated. ABDOMEN: Soft, nondistended, and nontender to palpation. Bowel sounds present. MUSCULOSKELETAL: Intubated and sedated. NEUROLOGICAL: Sedated. SKIN: Intact. Warm to touch. Good cap refill. LABORATORY DATA: Show white count 11, hemoglobin 8.6, hematocrit 28, platelets of 192. Chemistry; sodium 141, potassium 3.7, chloride 98, bicarb 33, anion gap of 13, BUN is 36 and creatinine 1.1, glucose 216. IMPRESSION: 1. Acute respiratory failure secondary to coronavirus pneumonia, intubation, sedated on mechanical ventilator. 2. Coronavirus, viral pneumonia. 3. Acute kidney with mild hyperkalemia-resolved. 4. Metabolic acidosis-resolved. 5. Mild hyponatremia-resolved. 6. Anemia, status post blood transfusion given on 10/09/2019. 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 PLAN: Continue with IV antibiotics and antifungal therapy, being managed by ID. He is still on a mechanical ventilator. He is on IV pressors when I evaluated him. Nepro for tube feeds. Lovenox for DVT prophylaxis. Pending LTAC placement. CONSULTANTS: ID, Pulmonary Critical Care, and Cardiology. MD SRIDHAR Manuel/MODL /[id number]
[2019-10-13] VITALS (23 sets, daily range): BP systolic 98–153; BP diastolic 42–83
--- NOTE | 2019-10-13 00:38 | Progress Note ---
DATE: 10/12/2019 Cardiology Progress Note SUBJECTIVE: Mr. Geller remains intubated and sedated. OBJECTIVE: VITAL SIGNS: Temperature 98.9, heart rate 97, respiratory rate 30, blood pressure 98/33, O2 saturation 92%. BMI 34. GENERAL: Intubated and sedated, in prone position. NECK: Supple. CHEST: Rales and decreased breath sounds. CARDIOVASCULAR: Regular rate and rhythm. Normal S1 and S2. ABDOMEN: Bowel sounds positive. EXTREMITIES: Normothermic. Trace edema. CARDIOVASCULAR MEDICATIONS: Reviewed, Levophed and atorvastatin. STUDIES: Reviewed. Creatinine 1, potassium 3.7. White blood cells 11, hemoglobin 8.6, and platelets 192. INR 1. ASSESSMENT AND PLAN: An 79-year-old man, presents with coronavirus disease 2019 infection, community-acquired pneumonia, severe sepsis with septic shock, acute respiratory failure, history of coronary artery disease, anemia, status post packed red blood cells transfusion. RECOMMEND: 1. Continue to wean pressors as tolerated. 2. Continue antibiotic therapy and Micafungin for presumed possible aspergillosis. Monitor H and H for signs of gross bleeding. Fecal occult blood test advised. MD REMY Aly/MODMarie /[id number]
[2019-10-13] MEDS: METOCLOPRAMIDE HCL 10 MG/2ML VIAL IV SCH ×4 (00:57→19:40)
[2019-10-13] MEDS: ALBUMIN 25% 25GM 100ML 100 ML IV SCH ×2 (00:57→06:26)
[2019-10-13] MEDS: CEFEPIME 2 GM/NS 0.9% 100 ML 100 ML IV SCH ×2 (03:00→16:12)
[2019-10-13 05:26] LABS: BASOPHILS % 0.3 % (0.0-1.0); EOSINOPHILS # (AUTO) 0.7 (0.0-0.4); EOSINOPHILS % 7.3 % (0.0-6.0); HEMATOCRIT 23.4 % (38.2-49.6); HEMOGLOBIN 7.4 g/dL (14.0-18.0); LYMPHOCYTES # (AUTO) 0.7 (1.0-3.2); LYMPHOCYTES % 7.2 % (18.0-39.1); MEAN CORPUSCULAR HEMOGLOBIN 32.5 pg (28-32); MEAN CORPUSCULAR HGB CONC 31.6 g/dL (31-35); MEAN CORPUSCULAR VOLUME 102.6 fL (81-99); MONOCYTES # (AUTO) 0.4 (0.2-0.8); MONOCYTES % 4.8 % (4.4-11.3); NEUTROPHILS % 78.2 % (38.7-80.0); PLATELET COUNT 200 x10e3/uL (140-360); RED BLOOD COUNT 2.28 x10e6/uL (4.3-5.7); RED CELL DISTRIBUTION WIDTH 13.8 % (11.7-14.4)
[2019-10-13] MEDS: METRONIDAZOLE 500MG/NS 100ML 100 ML IV SCH ×3 (05:27→21:06)
[2019-10-13 05:55] LABS: ALANINE AMINOTRANSFERASE 31 IU/L (0-55); ALBUMIN 2.7 g/dL (3.5-5.0); ALBUMIN/GLOBULIN RATIO 0.8 (0.8-2.0); ALKALINE PHOSPHATASE 82 IU/L (40-150); ANION GAP 12.4 mmol/L (8-16); BLOOD UREA NITROGEN 30 mg/dL (7-26); BUN/CREATININE RATIO 34 (6-25); CALCIUM 9.2 mg/dL (8.4-10.2); CARBON DIOXIDE 33 mmol/L (22-29); CHLORIDE 101 mmol/L (98-107); CREATININE, SERUM 0.87 mg/dL (0.72-1.25); EST GLOMERULAR FILTRATION RATE > 60 ML/MIN (60-); GLUCOSE 135 mg/dL (74-118); POTASSIUM 3.4 mmol/L (3.5-5.1); SODIUM 143 mmol/L (136-145)
[2019-10-13] MEDS: FAMOTIDINE 20 MG/2 ML VIAL IV SCH ×2 (07:55→21:06)
[2019-10-13 08:19] LABS: ABG HCO3 34 mmol/L (22-26); ABG PCO2 64 mmHg (35-45); ABG PH 7.33 (7.35-7.45); ABG PO2 104 mmHg (80-105); ABG TCO2 36
--- NOTE | 2019-10-13 12:09 | Progress Note ---
DATE: SUBJECTIVE: Mr. Geller, who is an 79-year-old male. This is day #19. Remains in the intensive care unit. Intubated and sedated. PHYSICAL EXAMINATION: GENERAL: Intubated. HEENT: Normocephalic. CHEST: Few crackles. HEART: S1 and S2. ABDOMEN: Soft. Bowel sounds present. EXTREMITIES: No edema. SKIN: No rash. His vitals are stable. There is no fever today. His T-max has been 100.1 back on the . His sputum showed Aspergillus fumigatus. MEDICATION LIST: He is currently on metronidazole and cefepime and Micafungin. IMPRESSION: COVID-19, respiratory failure, concerned about infection with Aspergillus. It is hard to tell if it is true infection versus colonization, but because he is quite sick, I am going to start him on itraconazole. Discontinue Mycamine. He did not respond to Mycamine. I have done a CT on him back on October 01 of his chest and abdomen and pelvis. A chest x-ray which was done on the showed no changes. We will have to see as a new clinically. We will follow. MD SANTO [place]/MISAEL /[id number]
--- NOTE | 2019-10-13 14:10 | Progress Note ---
DATE: 10/13/2019 Cardiology Progress Note SUBJECTIVE: Mr. Geller remains intubated, sedated in prone position. OBJECTIVE: VITAL SIGNS: Temperature 99.8, heart rate of 107 on telemetry, sinus tachycardia, blood pressure 108/58 on Levophed, respiratory rate 30, O2 saturation 95%. GENERAL: Intubated, sedated, prone position. NECK: Supple. CHEST: With rales and decreased breath sounds. CARDIOVASCULAR: Regular rate and rhythm. Normal S1 and S2. ABDOMEN: Soft. Bowel sounds positive. EXTREMITIES: Trace edema. CARDIOVASCULAR MEDICATIONS: Reviewed. Levophed, on hydralazine p.r.n., atorvastatin 40 mg at bedtime. LABORATORY DATA: Studies reviewed. Hemoglobin lower today at 7.4, creatinine 0.8, potassium 3.4. White blood cells 8.9, platelets 200. AST 23, ALT 31. ASSESSMENT: 1. Anemia, status post packed red blood cells transfusions. 2. Coronavirus-19 infection, community-acquired pneumonia, severe sepsis with septic shock on Levophed, acute respiratory failure on ventilator support. 3. History of coronary artery disease. RECOMMENDATIONS: 1. Continue to wean pressors as tolerated. 2. Please obtain fecal occult blood test, which has been ordered, results remain unavailable. Monitor H and H closely and transfuse as needed, had dropped to 6.8, post unit transfusion up to 9.7, now trending down to 7.4 again. Hold antiplatelets and anticoagulation for now given this and concern for acute bleed. Augustus Orr MD [facility]/MISAEL /[id number]
--- NOTE | 2019-10-13 14:15 | Progress Note ---
DATE: Pulmonary Critical Care Progress Note SUBJECTIVE: The patient is now in the prone position. He remains on a PRVC mode of ventilation at a rate of 30 with a tidal volume of 400 and a PEEP of 12. His FiO2 is set at 90%. He is off the Levophed. PHYSICAL EXAMINATION: VITAL SIGNS: The blood pressure is 153/49 and the pulse is 107. Saturation is 95%. HEENT: No facial swelling or erythema. LYMPHATIC: No submandibular, cervical, or supraclavicular adenopathy. CARDIAC: Regular rate and rhythm with normal S1, S2. LUNGS: Auscultation of lungs reveals crackles and rhonchi bilaterally. There is no wheezing. ABDOMEN: Soft, nontender. There is no rebound or guarding. EXTREMITIES: No leg edema or calf tenderness. There is no cyanosis or clubbing. SKIN: No rashes. NEUROLOGICAL: No focal abnormalities. LABORATORY DATA: Hemoglobin 7.4 and the white blood cell count is 8.9. Platelet count is 200. The BUN to creatinine ratio is 30 and 0.87. The potassium is 3.4. The total albumin is 2.7. IMPRESSION: 1. Acute respiratory failure. 2. Acute kidney injury. 3. Viral pneumonia and coronavirus disease-19 infection. 4. Diabetes. 5. Anemia. 6. Aspergillosis. PLAN: 1. Lasix and albumin. 2. Continue to ventilate the patient in prone position. 3. Continue to wean as tolerated and monitor ABGs. 4. The patient has completed antifungal therapy, micafungin and is now on itraconazole. 5. The patient is also on antibiotics. 6. Continue Versed and fentanyl. 7. Prognosis is poor. Greater than 35 minutes in direct critical care time. Иван Martinez MD [facility] [place]/[facility] /[id number]
--- NOTE | 2019-10-13 18:06 | Progress Note ---
DATE: 10/13/2019 Medicine Progress Note SUBJECTIVE: The patient is still intubated, currently on a prone position. He is on low-dose pressors. Good urine output. PHYSICAL EXAMINATION: VITAL SIGNS: Temperature is 99.4, pulse 101, respiratory rate is 30, blood pressure 119/46, and pulse ox 98% on mechanical ventilation, 90% FiO2. GENERAL: Intubated and sedated. CARDIOVASCULAR: Positive S1, S2. No murmurs, rubs, or gallops appreciated. PULMONARY: Intubated and sedated. ABDOMEN: Soft, nondistended, nontender to palpation. Bowel sounds present. MUSCULOSKELETAL: He is currently sedated. NEUROLOGIC: Currently, sedated. SKIN: Intact. Warm to touch. Good cap refill. EXTREMITIES: Trace edema appreciated. LABORATORY FINDINGS: Show white count 8.9, hemoglobin 10.4, hematocrit 23, and platelets of 200. Chemistry; sodium 140, potassium 3.4, chloride 101, bicarb 33, anion gap of 12, BUN is 30, creatinine is 0.87, glucose is 135. MICROBIOLOGY: Noted. IMAGING STUDIES: Nothing new today. IMPRESSION: 1. Acute respiratory failure, secondary to coronavirus pneumonia, intubated and sedated, on a mechanical ventilator. 2. Coronavirus, viral pneumonia. 3. Acute kidney injury with mild hyperkalemia-resolved. 4. Metabolic acidosis. 5. Mild hyponatremia. 6. Anemia, status post blood transfusion given on 10/09/2019, still currently anemic. 7. Aspergillosis, on sputum culture. PLAN: At this time, continue with IV antibiotics, antifungal therapy. Being managed by ID. He is on a mechanical ventilator on pressors and he is on sedation. Continue with Nepro for tube feeds. Lovenox for DVT prophylaxis. Pending LTAC once his oxygenation has improved. CONSULTANTS: ID, Pulmonary Critical Care, and Cardiology. MD SRIDHAR Manuel/MODL /[id number]
[2019-10-13] MEDS: MICAFUNGIN SODIUM 100 ML IV SCH (19:39)
[2019-10-13] MEDS: ALBUMIN 25% 25GM 100ML 0.25 GM/ML BTL IV SCH (19:40)
[2019-10-13] MEDS: ROCURONIUM BROMIDE 250 MG in SODIUM CHLORIDE 0.9% 250ML 225 ML IV SCH (19:41)
[2019-10-13] MEDS: FUROSEMIDE INJ 10 MG/ML 4 ML VIAL IV SCH (21:06)
[2019-10-14] VITALS (22 sets, daily range): BP systolic 93–135; BP diastolic 39–58
[2019-10-14] MEDS: METOCLOPRAMIDE HCL 10 MG/2ML VIAL IV SCH ×4 (00:17→17:37)
[2019-10-14] MEDS: ALBUMIN 25% 25GM 100ML 0.25 GM/ML BTL IV SCH ×2 (00:17→05:53)
[2019-10-14] MEDS: CEFEPIME 2 GM/NS 0.9% 100 ML 100 ML IV SCH ×2 (03:03→17:36)
[2019-10-14] MEDS: METRONIDAZOLE 500MG/NS 100ML 100 ML IV SCH ×3 (05:53→21:12)
--- NOTE | 2019-10-14 06:04 | Diagnostic Imaging Report ---
EXAMINATION: CHEST SINGLE (PORTABLE) INDICATION: ^resp failure COMPARISON: 10/10/2019 FINDINGS: AP view TUBES and LINES: Stable endotracheal tube and enteric tube. Removed previously seen left internal jugular catheter. New right internal jugular central line in place with tip projecting over inferior SVC. LUNGS: Lungs are well inflated. Diffuse bilateral airspace opacities. PLEURA: No pneumothorax. Suspected small bilateral pleural effusions. HEART AND MEDIASTINUM: The cardiac silhouette is partially obscured. BONES AND SOFT TISSUES: No acute osseous lesion. Soft tissues are unremarkable. UPPER ABDOMEN: No free air under the diaphragm. IMPRESSION: Unchanged diffuse bilateral airspace opacities, representing multifocal pneumonia. Suspected small bilateral pleural effusions. Signed by: Dr. Jose Woodson MD on 10/14/2019 6:00 AM
[2019-10-14] MEDS: LACTULOSE SYRUP 20 GM/30 ML UDC PO PRN (06:07)
--- NOTE | 2019-10-14 06:17 | NUR ---
Placed patient on supine position at 5:00 am 10/14/19.
[2019-10-14 06:42] LABS: BASOPHILS % 0.4 % (0.0-1.0); EOSINOPHILS # (AUTO) 0.5 (0.0-0.4); HEMATOCRIT 24.2 % (38.2-49.6); HEMOGLOBIN 7.2 g/dL (14.0-18.0); LYMPHOCYTES # (AUTO) 0.5 (1.0-3.2); LYMPHOCYTES % 7.3 % (18.0-39.1); MEAN CORPUSCULAR HEMOGLOBIN 30.6 pg (28-32); MEAN CORPUSCULAR HGB CONC 29.8 g/dL (31-35); MONOCYTES # (AUTO) 0.4 (0.2-0.8); MONOCYTES % 5.2 % (4.4-11.3); NEUTROPHILS # (AUTO) 5.2 (2.1-6.9); NEUTROPHILS % 78.3 % (38.7-80.0); PLATELET COUNT 194 x10e3/uL (140-360); RED BLOOD COUNT 2.35 x10e6/uL (4.3-5.7); RED CELL DISTRIBUTION WIDTH 14.2 % (11.7-14.4)
[2019-10-14 07:19] LABS: ALANINE AMINOTRANSFERASE 25 IU/L (0-55); ALBUMIN 3.3 g/dL (3.5-5.0); ALKALINE PHOSPHATASE 74 IU/L (40-150); ANION GAP 12.6 mmol/L (8-16); BLOOD UREA NITROGEN 25 mg/dL (7-26); BUN/CREATININE RATIO 26 (6-25); CALCIUM 9.7 mg/dL (8.4-10.2); CARBON DIOXIDE 34 mmol/L (22-29); CHLORIDE 102 mmol/L (98-107); CREATININE, SERUM 0.97 mg/dL (0.72-1.25); EST GLOMERULAR FILTRATION RATE > 60 ML/MIN (60-); GLUCOSE 146 mg/dL (74-118); POTASSIUM 3.6 mmol/L (3.5-5.1); SODIUM 145 mmol/L (136-145)
[2019-10-14] MEDS ORDERED: ITRACONAZOLE 100 MG CAP PO SCH (07:30)
[2019-10-14 08:13] LABS: ABG HCO3 34 mmol/L (22-26); ABG PCO2 65 mmHg (35-45); ABG PH 7.33 (7.35-7.45); ABG PO2 75 mmHg (80-105); ABG TCO2 36
[2019-10-14] MEDS: FAMOTIDINE 20 MG/2 ML VIAL IV SCH ×2 (08:39→20:17)
[2019-10-14] MEDS: FUROSEMIDE INJ 10 MG/ML 4 ML VIAL IV SCH ×2 (08:39→20:17)
[2019-10-14] MEDS: FENTANYL CITRATE INJ 2,000 MCG in SODIUM CHLORIDE 0.9% 250ML 210 ML IV PRN (11:03)
--- NOTE | 2019-10-14 12:14 | Progress Note ---
DATE: SUBJECTIVE: The patient is afebrile. The patient is currently on a mechanical ventilator. He remains on a PRVC at a rate of 30. His tidal volume is set at 400. His PEEP is set at 12. FiO2 is 90%. PHYSICAL EXAMINATION: VITAL SIGNS: The blood pressure is 117/40, saturations 95%. The pulse is 104. HEENT: Shows no facial swelling or erythema. The oropharynx is normal. There is no oral endotracheal tube. The patient has a right IJ line. The site is clean. There is no drainage. There is an arterial line in good position. CARDIAC: Reveals regular rate and rhythm. Normal S1, S2. LUNGS: Auscultation of lungs reveal decreased breath sounds at the bases. There is no wheezing. ABDOMEN: Soft and nontender. There is no rebound or guarding. EXTREMITIES: Shows no leg edema or calf tenderness. There is no cyanosis or clubbing. SKIN: Shows no rashes. LABORATORY DATA: White blood cell count is 6.7 and hemoglobin is 7.2 and the platelet count is 194,000. BUN to creatinine ratio is normal. Electrolytes are within normal limits. Albumin is 3.3. Blood gas is 7.33, 65, 75, and 34. RADIOGRAPHIC DATA: Chest x-ray shows diffuse bilateral airspace opacities. IMPRESSION: 1. Acute respiratory failure. 2. Acute kidney injury. 3. Bilateral pneumonia and COVID-19 infection. 4. Diabetes. 5. Aspergillosis. 6. Anemia. PLAN: 1. Continue current ventilator settings and monitor ABG. 2. Continue current antibiotics. 3. Continue Versed and fentanyl. 4. Evaluate the patient for tracheostomy. Иван Martinez MD [facility] [place]/MODL /[id number]
[2019-10-14] MEDS: MICAFUNGIN SODIUM 100 ML IV SCH (17:37)
--- NOTE | 2019-10-14 20:15 | Progress Note ---
DATE: 10/14/2019 Medicine Progress Note SUBJECTIVE: Still intubated and sedated, requiring significant amount of oxygenation. PHYSICAL EXAMINATION: VITAL SIGNS: Temperature is 100.6, pulse 116, respiratory rate is 30, blood pressure 132/48, pulse ox 94% on mechanical ventilator, FiO2 of 80%. In's and out's, the patient was positive 72 mL in 24 hours. GENERAL: Intubated and sedated. PULMONARY: Intubated and sedated. CARDIOVASCULAR: Positive S1 and S2. No murmurs, rubs, or gallops appreciated. ABDOMEN: Soft, nondistended, nontender to palpation. Bowel sounds present. MUSCULOSKELETAL: Sedated. NEUROLOGICAL: Sedated. SKIN: Intact, warm to touch. Good cap refill. EXTREMITIES: Trace edema appreciated. LABORATORY DATA: White count 6.6, hemoglobin 7.2, hematocrit is 24, and platelets of 194. Chemistry; sodium 145, potassium is 3.6, chloride 102, bicarb 34, anion gap of 12, BUN is 25, creatinine is 0.97, glucose is 146. LFTs within normal range. IMAGING STUDIES: Chest x-ray this morning shows unchanged diffuse bilateral airspace opacities, representing multifocal pneumonia. There is suspected small bilateral pleural effusions. IMPRESSION: 1. Acute respiratory failure secondary to coronavirus pneumonia, intubated and sedated on mechanical ventilation. 2. Coronavirus, viral pneumonia. 3. Acute kidney injury with mild hyperkalemia. 4. Metabolic acidosis. 5. Mild hyponatremia-resolved. 6. Anemia, status post blood transfusion given on 10/09/2019, still currently anemic. 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 PLAN: At this time, continue with IV antibiotics, antifungal therapy, in which ID is following. The patient is now on IV diuretics, so make the patient negative to see if this will help with oxygenation. He is still intubated, not on any pressors during my evaluation, on sedation. Nepro for tube feeds. Lovenox for DVT prophylaxis. Prognosis seems to be very poor. CONSULTANTS: ID, Pulmonary Critical Care, and Cardiology. MD SRIDHAR Manuel/MISAEL /[id number]
--- NOTE | 2019-10-14 21:35 | Progress Note ---
DATE: 10/14/2019 Cardiology Progress Note SUBJECTIVE: Remains intubated and sedated. OBJECTIVE: VITAL SIGNS: Temperature 100.6, heart rate 114, telemetry, sinus tachycardia, blood pressure 118/47, respiratory rate 30, and O2 saturation 94%. GENERAL: Intubated and sedated. Neck: Supple. CHEST: With rales and decreased breath sounds. CARDIOVASCULAR: Regular rate and rhythm. Normal S1, S2. Tachycardic. ABDOMEN: Soft. Bowel sounds positive. EXTREMITIES: No edema. Normothermic. CARDIOVASCULAR MEDICATIONS: Reviewed. Furosemide 40 mg q.12 hours, hydralazine 10 q.4 hours, off Levophed. STUDIES: Reviewed. Sodium 145, potassium 3.6, chloride 102, bicarbonate 34, BUN 25 and creatinine 0.97, glucose 146. White blood cell 6.6, hemoglobin 7.2, platelets 194. PT 14.1, PTT 52. INR 1.04. AST 23, ALT 25, alkaline phosphatase 74, total bilirubin 0.8. ASSESSMENT AND PLAN: An 79-year-old man presents with COVID-19 infection, community-acquired pneumonia, acute respiratory failure. Has history of coronary artery disease, hypertension. Anemia, undergoing evaluation. RECOMMENDATIONS: Continue current cardiovascular medications. Possible tracheostomy being considered. Awaiting fecal occult blood test results, given drop in H and H over the last week. No gross bleeding observed per nursing report. Approaching an euvolemic state. Continue furosemide. However, switch to lower dosing over the next couple of days depending on how he continues to respond. MD REMY Aly/MISAEL /[id number]
[2019-10-14] MEDS: NOREPINEPHRINE INJ 4MG/4ML 8 MG in DEXTROSE 5% 250ML 250 ML IV SCH (22:12)
[2019-10-14] MEDS: ROCURONIUM BROMIDE 250 MG in SODIUM CHLORIDE 0.9% 250ML 225 ML IV SCH (22:13)
[2019-10-15] VITALS (24 sets, daily range): BP systolic 94–156; BP diastolic 39–59
[2019-10-15] MEDS: METOCLOPRAMIDE HCL 10 MG/2ML VIAL IV SCH ×4 (01:16→17:57)
[2019-10-15] MEDS: CEFEPIME 2 GM/NS 0.9% 100 ML 100 ML IV SCH ×2 (02:44→14:06)
[2019-10-15 05:17] LABS: BASOPHILS # (AUTO) 0.1 (0.0-0.1); BASOPHILS % 0.7 % (0.0-1.0); EOSINOPHILS # (AUTO) 1.2 (0.0-0.4); EOSINOPHILS % 11.2 % (0.0-6.0); HEMATOCRIT 26.3 % (38.2-49.6); HEMOGLOBIN 7.8 g/dL (14.0-18.0); LYMPHOCYTES % 9.3 % (18.0-39.1); MEAN CORPUSCULAR HEMOGLOBIN 30.4 pg (28-32); MEAN CORPUSCULAR HGB CONC 29.7 g/dL (31-35); MEAN CORPUSCULAR VOLUME 102.3 fL (81-99); MONOCYTES # (AUTO) 0.8 (0.2-0.8); MONOCYTES % 7.9 % (4.4-11.3); NEUTROPHILS % 67.2 % (38.7-80.0); PLATELET COUNT 360 x10e3/uL (140-360); RED BLOOD COUNT 2.57 x10e6/uL (4.3-5.7); RED CELL DISTRIBUTION WIDTH 14.1 % (11.7-14.4)
[2019-10-15 05:37] LABS: ALBUMIN/GLOBULIN RATIO 0.9 (0.8-2.0); ANION GAP 11.5 mmol/L (8-16); CALCIUM 9.6 mg/dL (8.4-10.2); CREATININE, SERUM 1.35 mg/dL (0.72-1.25); POTASSIUM 3.5 mmol/L (3.5-5.1)
[2019-10-15] MEDS: METRONIDAZOLE 500MG/NS 100ML 100 ML IV SCH ×3 (06:02→21:27)
--- NOTE | 2019-10-15 06:46 | NUR ---
infectious disease progress note Late entry for October 14, 2019 Patient seen and examined chart reviewed the events noted Please refer to the orders discussed with the medical team Patient remains in intensive care unit intubated and sedated Still intubated and sedated, requiring significant amount of oxygenation. PHYSICAL EXAMINATION: VITAL SIGNS: Temperature is 100.6, pulse 116, respiratory rate is 30, blood pressure 132/48, pulse ox 94% on mechanical ventilator, FiO2 of 80%. In's and out's, the patient was positive 72 mL in 24 hours. GENERAL: Intubated and sedated. PULMONARY: Intubated and sedated. CARDIOVASCULAR: Positive S1 and S2. No murmurs, rubs, or gallops appreciated. ABDOMEN: Soft, nondistended, nontender to palpation. Bowel sounds present. MUSCULOSKELETAL: Sedated. NEUROLOGICAL: Sedated. SKIN: Intact, warm to touch. Good cap refill. EXTREMITIES: Trace edema appreciated. LABORATORY DATA: White count 6.6, hemoglobin 7.2, hematocrit is 24, and platelets of 194. Chemistry; sodium 145, potassium is 3.6, chloride 102, bicarb 34, anion gap of 12, BUN is 25, creatinine is 0.97, glucose is 146. LFTs within normal range. IMAGING STUDIES: Chest x-ray this morning shows unchanged diffuse bilateral airspace opacities, representing multifocal pneumonia. There is suspected small bilateral pleural effusions. IMPRESSION: 1. Acute respiratory failure secondary to coronavirus pneumonia, intubated and sedated on mechanical ventilation. 2. Coronavirus, viral pneumonia. 3. Acute kidney injury with mild hyperkalemia. 4. Metabolic acidosis. 5. Mild hyponatremia-resolved. 6. Anemia, status post blood transfusion given on 10/09/2019, still currently anemic. 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 Could be infection patient is too unstable to obtain biopsy will treat for now and reassess Patient prognosis remains very guarded Discussed with medical team see the orders Continue surveillance for aspiration pneumonia
--- NOTE | 2019-10-15 06:47 | NUR ---
infectious disease progress note October 15, 2019 Patient seen and examined chart reviewed the events noted please refer to the orders discussed with the medical team HEENT: Shows no facial swelling or erythema. The oropharynx is normal. There is no oral endotracheal tube. The patient has a right IJ line. The site is clean. There is no drainage. There is an arterial line in good position. CARDIAC: Reveals regular rate and rhythm. Normal S1, S2. LUNGS: Auscultation of lungs reveal decreased breath sounds at the bases. There is no wheezing. ABDOMEN: Soft and nontender. There is no rebound or guarding. EXTREMITIES: Shows no leg edema or calf tenderness. There is no cyanosis or clubbing. SKIN: Shows no rashes. LABORATORY DATA: White blood cell count is 6.7 and hemoglobin is 7.2 and the platelet count is 194,000. BUN to creatinine ratio is normal. Electrolytes are within normal limits. Albumin is 3.3. Blood gas is 7.33, 65, 75, and 34. RADIOGRAPHIC DATA: Chest x-ray shows diffuse bilateral airspace opacities Covid 19 Respiratory failure Aspergillosis and a sputum concern about infection Diabetes mellitus Anemia of chronic disease Malnutrition Debility continue as ordered
--- NOTE | 2019-10-15 08:31 | Diagnostic Imaging Report ---
X-ray chest AP portable Comparison: 10/14/2019 History: Covid pneumonia Findings: Life support lines and tubes including an endotracheal tube, nasogastric tube, a right IJ CV line are unchanged. No change in the central airways are cardiomediastinal silhouettes. No change in bilateral small pleural effusions. No change in pulmonary infiltrates. No change in the visualized skeleton are upper abdomen. Impression: No significant change in the pulmonary infiltrates. Signed by: Lawrence Linton MD on 10/15/2019 8:28 AM
[2019-10-15] MEDS: FAMOTIDINE 20 MG/2 ML VIAL IV SCH ×2 (08:41→20:47)
[2019-10-15] MEDS: ROCURONIUM BROMIDE 250 MG in SODIUM CHLORIDE 0.9% 250ML 225 ML IV SCH (08:41)
[2019-10-15 09:36] LABS: ABG HCO3 33 mmol/L (22-26); ABG PCO2 63 mmHg (35-45); ABG PH 7.32 (7.35-7.45); ABG PO2 67 mmHg (80-105); ABG TCO2 34
--- NOTE | 2019-10-15 09:40 | NUR ---
Updated clinical faxed to [facility] at [phone]. Informed Sahra with [facility].
[2019-10-15] MEDS: NOREPINEPHRINE INJ 4MG/4ML 8 MG in DEXTROSE 5% 250ML 250 ML IV SCH (11:39)
[2019-10-15] MEDS: MIDAZOLAM HCL 50 MG in SODIUM CHLORIDE 0.9% 100 ML 90 ML IV PRN ×3 (11:40→21:42)
[2019-10-15] MEDS: FENTANYL CITRATE INJ 2,000 MCG in SODIUM CHLORIDE 0.9% 250ML 210 ML IV PRN ×2 (11:40→21:41)
[2019-10-15] MEDS ORDERED: MIDAZOLAM HCL 5MG/ML 10ML VIAL 100 ML BAG IV ONE (14:04)
[2019-10-15] MEDS ORDERED: FENTANYL 2,000 MCG/250 ML BAG ONE (14:04)
[2019-10-15] MEDS: MICAFUNGIN SODIUM 100 ML IV SCH (16:00)
--- NOTE | 2019-10-15 16:44 | Progress Note ---
DATE: SUBJECTIVE: The patient continues on mechanical ventilation. He has a PRVC mode of ventilation. His tidal volume is set at 400 and his rate is set at 26. His FiO2 is 75% and his PEEP is 12. He remains on Versed and fentanyl. PHYSICAL EXAMINATION: VITAL SIGNS: The patient is afebrile. The blood pressure is 110/47 and saturation is 95%. Respiratory rate is 30. He is on the above settings. HEENT: Shows no facial swelling or erythema. LYMPHATIC: Shows no submandibular, cervical, or supraclavicular adenopathy. CARDIAC: Reveals regular rate and rhythm with normal S1 and S2. LUNGS: Auscultation of lungs reveals rhonchorous breath sounds bilaterally. There is no wheezing. ABDOMEN: Soft and nontender. There is no rebound or guarding. EXTREMITIES: Shows no leg edema or calf tenderness. There is no cyanosis or clubbing. LABORATORY DATA: White blood cell count is 10.45 and the hemoglobin is 7.8. The platelet count is 360. The BUN to creatinine ratio is 35 to 1.35. The potassium is 3.5 and the blood sugar is 186 to 205. Albumin is 3. RADIOGRAPHIC DATA: Chest x-ray shows pulmonary infiltrates. IMPRESSION: 1. Acute respiratory failure. 2. Acute kidney injury. 3. Viral pneumonia and COVID-19 infection. 4. Diabetes. 5. Pulmonary aspergillosis. 6. Anemia. PLAN: 1. Wean the patient off rocuronium. 2. Continue current ventilator settings and monitor ABGs. 3. Complete antibiotics. 4. Continue Versed and fentanyl. 5. The patient being evaluated for tracheostomy. 6. Case discussed with nursing staff, Respiratory, Internal Medicine, and Infectious Disease. Greater than 35 minutes in direct critical care time. Иван Martinez MD [facility] [place]/MODL /[id number]
--- NOTE | 2019-10-15 18:04 | NUR ---
Nutrition Intervention Note RD Recommendation(s) for Physician: -Recommend changing TF to Vital AF with goal rate of 50 ml/hr (to provide 1440 kcal and 90 gm protein) -Water flushes/fluid management per MD. Plan of Care: RD following, monitoring for tolerance and adequacy, TF rec's Nutrition reason for involvement: follow up RD Assessment 10/14: Follow up. Pt remains intubated and sedated with Fentanyl and Versed. No pressors currently, previously on low dose Levophed. Continues on TF of Nepro at 40 ml/hr, BLAISE resolved. RD spoke with Dr. Martinez, TO given for RD to manage TF order. Chart reviewed, trach evaluation pending. Will continue to monitor. 10/11: Follow up. Chart reviewed. Pt remains intubated and sedated. TF of Nepro is infusing at 40 mL/hr per documentation. Recommend modifying tube feeding to Vital High Protein to better meet pts estimated nutritional needs. Current tube feed recommendations remain appropriate. Will continue to monitor. 10/07: Follow up. Chart reviewed. Pt remains intubated and sedated. TF is infusing at 10 mL/hr per documentation not meeting needs. Pt was placed in the prone position per MD note. Current tube feed recommendations remain appropriate. Will continue to monitor. 10/02: Follow up. Pt remains intubated and sedated, no Propofol and no pressor support. Pt continues on TF of Glucerna 1.2 at 25 ml/hr currently- not meeting needs. No BM documented. Current TF rec's remain appropriate. Chart reviewed. Will continue to monitor. 09/28 79yo M, who was admitted for COVID PNA. Currently ventilated and intubated. TF order was placed this morning. Levophed has turned down to 5mcg/min. Pt is on Fentanyl and Versed for sedation. No past medical record in [facility]. Principal Problems/Diagnoses: 1. Acute respiratory failure. 2. Viral pneumonia and COVID-19. PMH: Hypertension, hyperlipidemia, heart disease I/O: 4224/2590 GI: last recorded BM 10/14- diarrhea Skin: L cheek wound- DTI due to proning Labs: 10/14: Na 145, K 3.5, BUN 35, Cr 1.35, Gluc 156, POC 139-205 10/11: Na 141, K 3.7, BUN 36, Cr 1.11, Glu 216, Total Bili 1.4, AST 42 10/07: Na 139, K 4.9, BUN 19, Cr 0.83, Glu 115, Total Bili 2.3, AST 38 10/02: Na 148, K 4.9, BUN 63, Cr 1.19, Gluc 107, POC Gluc 127-210 (09/28) BUN 41 H, AST 43 H, ALT 74 H Meds: micafungin, zofran, lactulose, abx, reglan, pepcid IVF/Drips: Fentanyl drip, Versed drip, off Levophed Ht: 65in Wt: 205 lb (10/14) 205 lbs (10/11) 197 lbs (10/07) 189 lbs (10/02)- questionable wt change, 205lb (09/27) BMI: 34.1 kg/m2 (using wt of 205 lbs) IBW: 136lb +/-10% Malnutrition Evaluation (10/15/19) Pt does not currently meet criteria for malnutrition. PO/intake adequacy: None-TF meeting >75% of estimated needs. Wt loss: None- no wt loss since admit, questionable wt fluctuations noted. Pt currently 205 lb. Fat loss: [facility]- Adequate fat stores indicated per current BMI. Muscle loss: MAIN per current isolation protocol. Edema: None documented. Functional status: MAIN due to intubation. Nutrition Prescription (Diet Order): Nepro @ 40 mL/hr (provides 1728 kcal, 78 g protein) Estimated Nutritional Needs: Calories: 9131-3712 kcal (22-25kcal/kg) Weight used: 205 lbs Protein: 80-124g (1.3-2g/kg) Weight used: IBW- adjust per renal function Diet Adequacy: Meeting calorie needs, meeting protein needs Tolerance: tolerating TF Diet Education Needs Assessment: Diet education not indicated, patient on temporary/transition diet. Nutrition Care Level: moderate Nutrition Diagnosis: Inadequate oral intake related to current medical status (vent) as evidenced by pt requiring EN as main source of nutrition. Goal: Patient will meet 75-100% of estimated needs by follow up Progress: TF is meeting >75% of estimated nutritional needs Interventions: Composition, Rate, Route, Recommended modifications Monitoring/Evaluation: Total energy intake, Total protein intake, Formula/Solution, Weight change Signed: aHzel Lechuga RD, LD, CNSC
--- NOTE | 2019-10-15 21:51 | Consultation ---
DATE OF CONSULTATION: 10/15/2019 CHIEF COMPLAINT: Pneumonia. HISTORY OF PRESENT ILLNESS: The patient is an 79-year-old male, admitted with progressive shortness of breath, fevers, and was tested positive for COVID. The patient eventually required mechanical ventilation with intubation approximately 2-1/2 weeks ago. The patient required high FiO2 of oxygen to maintain and protected long-term support required. Therefore, tracheostomy is entertained. PAST MEDICAL HISTORY: Positive for hypertension, hyperlipidemia, heart disease, and possible aspergillosis. PAST SURGICAL HISTORY: Positive for appendectomy. ALLERGIES: NO DRUGS ALLERGY BY HISTORY. SOCIAL HABITS: No current smoking or alcohol use. REVIEW OF SYSTEMS: Unobtainable. PHYSICAL EXAMINATION: VITAL SIGNS: The patient's vital sign is stable. He is afebrile. GENERAL: The patient is intubated and sedated. Nonresponsive. LUNGS: Bilateral rhonchi. HEART: Regular rate and rhythm. ABDOMEN: Soft. EXTREMITIES: Mild ankle edema. LABORATORY DATA: White cell count is 10.4, hemoglobin of 8, and platelet count of 360. Creatinine of 1.4. Liver function tests within normal limits. Chest x-ray, bilateral infiltrates consistent with multifocal pneumonia. ASSESSMENT: Bilateral pneumonia in patient who tested coronavirus disease 2019 positive. PLAN: Tracheostomy tube placement. We will continue ventilator management. Attendant risks discussed. Haroon Tariq MD [facility] /[id number]
--- NOTE | 2019-10-15 23:31 | Progress Note ---
DATE: 10/15/2019 Cardiology Progress Note SUBJECTIVE: The patient is sedated (midazolam and fentanyl) on mechanical ventilation. OBJECTIVE: VITAL SIGNS: Blood pressure of 119/49 by art line and 137/54 by cuff measurement. The patient's heart rate is in the 90s and regular. He is afebrile and his oxygen saturation is 95%. NECK: Supple. . LUNGS: Shows rhonchi bilaterally. COR: Regular rate. Normal S1, S2. No murmurs heard. ABDOMEN: Soft, not distended. EXTREMITIES: No leg edema or cyanosis. MENTAL STATUS: Cannot be assessed due to sedation. CARDIOVASCULAR MEDICATIONS: Reviewed. LABORATORY DATA: Shows a white blood cell count of 10.5, hemoglobin of 7.8, hematocrit of 26.3, platelet count is 360,000. Sodium is 145, potassium is 3.5, chloride is 103, bicarb is 34. The BUN is 35, creatinine is 1.35, glucose is 156. Liver tests are within reference range. Albumin is 3.0. ASSESSMENT AND PLAN: 1. Acute hypoxemic respiratory failure, on mechanical ventilation. 2. Covid19 infection and associated pneumonia. 3. History of coronary artery disease, stable. 4. Hypertension by history 5. Anemia: no bleeding reported. RECOMMENDATIONS: 1. Tracheostomy planned this week. 2. Continue cardiovascular medications. 3. Continue full support. 4. Anemia workup as per primary team. MD COREY Mahmood/LIAML /[id number]
[2019-10-16] VITALS (23 sets, daily range): BP systolic 93–144; BP diastolic 44–93
[2019-10-16] MEDS: METOCLOPRAMIDE HCL 10 MG/2ML VIAL IV SCH ×4 (00:16→17:23)
--- NOTE | 2019-10-16 01:47 | Progress Note ---
DATE: 10/15/2019 Medicine Progress Note SUBJECTIVE: The patient is still intubated and sedated. Working on getting a tracheostomy sometime this week. Still requiring significant amount of oxygenation. OBJECTIVE: VITAL SIGNS: Temperature 100.4, pulse 107, respiratory rate is 30, blood pressure 129/53, and pulse ox 95% on mechanical ventilation. GENERAL: Intubated and sedated. PULMONARY: Intubated and sedated. CARDIOVASCULAR: Positive S1 and S2. No murmurs, rubs, or gallops. GI: Abdomen soft, nondistended, and nontender to palpation. Bowel sounds present. MUSCULOSKELETAL: Sedated. NEUROLOGIC: Sedated. SKIN: Intact. Warm to touch. Good capillary refill. EXTREMITIES: No edema appreciated. LABORATORY DATA: Labs reviewed. CBC stable, chemistry stable. IMPRESSION: 1. Acute respiratory failure secondary to coronavirus pneumonia, intubated and sedated, on mechanical ventilation. 2. Coronavirus, viral pneumonia. 3. Acute kidney injury with mild hyperkalemia. 4. Metabolic acidosis. 5. Mild hyponatremia - resolved. 6. Anemia, status post blood transfusion given in 10/09/2019. Still currently anemic. 7. Aspergillosis sputum culture. PLAN: At this time, continue with IV antibiotic therapy including antifungal therapy being managed by ID. The patient is on IV diuretics as well to help with oxygenation. He is still intubated, not on any pressors at this time. Nepro for tube feeds. Lovenox for DVT prophylaxis. Working on a tracheostomy by General Surgery possibly sometime this week. Prognosis seems to be very dim and guarded. CONSULTANTS: ID, Pulmonary Critical Care, Cardiology, and General Surgery. MD SRIDHAR Manuel/MISAEL /[id number]
[2019-10-16] MEDS: CEFEPIME 2 GM/NS 0.9% 100 ML 100 ML IV SCH ×2 (04:32→15:03)
[2019-10-16 04:57] LABS: BASOPHILS % 0.3 % (0.0-1.0); EOSINOPHILS % 11.7 % (0.0-6.0); HEMATOCRIT 25.9 % (38.2-49.6); HEMOGLOBIN 7.6 g/dL (14.0-18.0); LYMPHOCYTES # (AUTO) 0.8 (1.0-3.2); LYMPHOCYTES % 8.7 % (18.0-39.1); MEAN CORPUSCULAR HGB CONC 29.3 g/dL (31-35); MEAN CORPUSCULAR VOLUME 102.4 fL (81-99); MONOCYTES # (AUTO) 0.8 (0.2-0.8); MONOCYTES % 8.5 % (4.4-11.3); PLATELET COUNT 341 x10e3/uL (140-360); RED BLOOD COUNT 2.53 x10e6/uL (4.3-5.7); RED CELL DISTRIBUTION WIDTH 14.1 % (11.7-14.4)
[2019-10-16] MEDS: MIDAZOLAM HCL 50 MG in SODIUM CHLORIDE 0.9% 100 ML 90 ML IV PRN ×4 (05:03→19:45)
[2019-10-16] MEDS: FENTANYL CITRATE INJ 2,000 MCG in SODIUM CHLORIDE 0.9% 250ML 210 ML IV PRN ×3 (05:03→19:30)
[2019-10-16 05:19] LABS: ALANINE AMINOTRANSFERASE 17 IU/L (0-55); ALBUMIN 2.5 g/dL (3.5-5.0); ALBUMIN/GLOBULIN RATIO 0.7 (0.8-2.0); ALKALINE PHOSPHATASE 66 IU/L (40-150); ANION GAP 13.4 mmol/L (8-16); BLOOD UREA NITROGEN 41 mg/dL (7-26); BUN/CREATININE RATIO 36 (6-25); CALCIUM 9.6 mg/dL (8.4-10.2); CARBON DIOXIDE 29 mmol/L (22-29); CHLORIDE 107 mmol/L (98-107); CREATININE, SERUM 1.13 mg/dL (0.72-1.25); EST GLOMERULAR FILTRATION RATE > 60 ML/MIN (60-); GLUCOSE 140 mg/dL (74-118); POTASSIUM 3.4 mmol/L (3.5-5.1); SODIUM 146 mmol/L (136-145)
[2019-10-16] MEDS: METRONIDAZOLE 500MG/NS 100ML 100 ML IV SCH ×3 (05:58→21:29)
[2019-10-16] MEDS: NOREPINEPHRINE INJ 4MG/4ML 8 MG in DEXTROSE 5% 250ML 250 ML IV SCH (07:34)
--- NOTE | 2019-10-16 08:28 | NUR ---
infectious disease progress note Patient seen and examined chart reviewed and discussed with the medical team Please see orders October 16, 2019 Patient remains intensive care unit he patient is still intubated and sedated. Working on getting a tracheostomy sometime this week. Still requiring significant amount of oxygenation. OBJECTIVE: VITAL SIGNS: Temperature 100.4, pulse 107, respiratory rate is 30, blood pressure 129/53, and pulse ox 95% on mechanical ventilation. GENERAL: Intubated and sedated. PULMONARY: Intubated and sedated. CARDIOVASCULAR: Positive S1 and S2. No murmurs, rubs, or gallops. GI: Abdomen soft, nondistended, and nontender to palpation. Bowel sounds present. MUSCULOSKELETAL: Sedated. NEUROLOGIC: Sedated. SKIN: Intact. Warm to touch. Good capillary refill. EXTREMITIES: No edema appreciated. LABORATORY DATA: Labs reviewed. CBC stable, chemistry stable. IMPRESSION: 1. Acute respiratory failure secondary to coronavirus pneumonia, intubated and sedated, on mechanical ventilation. 2. Coronavirus, viral pneumonia. 3. Acute kidney injury with mild hyperkalemia. 4. Metabolic acidosis. 5. Mild hyponatremia - resolved. 6. Anemia, status post blood transfusion given in 10/09/2019. Still currently anemic. 7. Aspergillosis sputum culture. tracheostomy is planned
[2019-10-16] MEDS: FAMOTIDINE 20 MG/2 ML VIAL IV SCH ×2 (08:38→21:29)
--- NOTE | 2019-10-16 10:13 | Progress Note ---
DATE: SUBJECTIVE: The patient is currently on a mechanical ventilator. He is on low-dose Levophed. He is now on 100% with a PEEP of 12. He is on a PRVC at a rate of 30 with a tidal volume of 400. PHYSICAL EXAMINATION: VITAL SIGNS: The blood pressure is 127/68, saturation is 97%. The pulse is 112. HEENT: There is an oral endotracheal tube. The patient has a PICC line in place as well as arterial line. LYMPHATIC: No submandibular, cervical, or supraclavicular adenopathy. CARDIAC: Regular rate and rhythm with normal S1, S2. LUNGS: Auscultation of lungs is clear breath sounds bilaterally. There is no wheezing. ABDOMEN: Soft, nontender. There is no rebound or guarding. EXTREMITIES: No leg edema or calf tenderness. There is no cyanosis or clubbing. SKIN: No rashes. NEUROLOGICAL: No focal abnormalities. LABORATORY DATA: White blood cell count is 8.8, hemoglobin is 7.6. The platelet count is 341. The BUN to creatinine ratio is 41 to 1.13 and the potassium is 3.4. The sodium is 146. Blood sugars are 160-180. IMPRESSION: 1. Acute respiratory failure. 2. Acute renal failure. 3. Viral pneumonia and coronavirus disease-19 infection. 4. Diabetes. 5. Pulmonary aspergillosis. 6. Anemia. PLAN: 1. The patient will be placed in the prone position. 2. Continue current ventilator settings and monitor ABGs. 3. The patient is now off rocuronium. He is on Versed and fentanyl alone. 4. Continue current antimicrobial therapy for aspergillosis and bacterial infection. 5. The patient will be scheduled for tracheostomy. Greater than 35 minutes in direct critical care time. MD ROBERT Epps/MODL /[id number]
[2019-10-16 11:11] LABS: ABG PCO2 66 mmHg (35-45); ABG PH 7.26 (7.35-7.45); ABG PO2 59 mmHg (80-105)
[2019-10-16 11:12] LABS: ABG HCO3 30 mmol/L (22-26); ABG TCO2 32
[2019-10-16] MEDS: MICAFUNGIN SODIUM 100 ML IV SCH (15:51)
[2019-10-16] MEDS ORDERED: CISATRACURIUM BESYLATE 100 MG in SODIUM CHLORIDE 0.9% 100 ML 100 ML IV PRN (16:00)
[2019-10-16] MEDS ORDERED: CISATRACURIUM BESYLATE 100 MG in SODIUM CHLORIDE 0.9% 100 ML 50 ML IV PRN (16:00)
--- NOTE | 2019-10-16 23:37 | Progress Note ---
DATE: 10/16/2019 Medicine Progress Note SUBJECTIVE: The patient is still intubated and sedated on low-dose pressors. No overnight events. The patient was evaluated approximately 1:15 this afternoon. PHYSICAL EXAMINATION: VITAL SIGNS: Temperature is 97.3, pulse 120, respiratory rate is 32, blood pressure 123/49, pulse ox 93% on 100% FiO2. GENERAL: Intubated and sedated. PULMONARY: Intubated and sedated. CARDIOVASCULAR: Positive S1, S2. No murmurs, rubs, or gallops appreciated. ABDOMEN: Soft, nondistended, and nontender to palpation. Bowel sounds present. MUSCULOSKELETAL: Sedated. NEUROLOGICAL: Sedated. SKIN: Intact. Warm to touch. Good cap refill. LABORATORY DATA: Show CBC, white count is 8.8, hemoglobin 7.6, hematocrit is 25, platelets of 341. Chemistry reviewed shows a potassium 3.4. The rest of electrolytes are stable. MICROBIOLOGY: None. IMAGING STUDIES: None. IMPRESSION: 1. Acute respiratory failure secondary coronavirus pneumonia, intubated and sedated on mechanical ventilation. 2. Coronavirus, viral pneumonia. 3. Acute kidney injury with mild hyperkalemia-resolved. 4. Metabolic acidosis-resolved. 5. Mild hyponatremia-resolved. 6. Anemia, status post blood transfusion given on 10/09/2019, still anemic. 7. Aspergillosis sputum cultures. PLAN: At this time, continue with IV antibiotic, antifungal therapy being managed by ID. He is on IV diuretics. Still intubated, still on significant amount of oxygenation on mechanical ventilator. Nepro for tube feeds. Lovenox for DVT prophylaxis. Tracheostomy sometime this week. Pulmonary Critical Care consulted. Overall plan is to eventually once stable, transfer to [facility]. MD SRIDHAR Manuel/MISAEL /[id number]
--- NOTE | 2019-10-16 23:51 | Progress Note ---
DATE: 10/16/2019 Cardiology Progress Note SUBJECTIVE: The patient is sedated (midazolam and fentanyl) on mechanical ventilation. OBJECTIVE: VITAL SIGNS: Blood pressure of 111/47 by art line with a heart rate of 120 bpm, regular, on IV norepinephrine. He is afebrile, oxygen saturation is 95%, FiO2 100%. LUNGS: Show coarse breath sounds bilaterally. CARDIAC: Regular rate. Tachycardia, normal S1 and S2. No murmurs heard. ABDOMEN: Soft, not distended. EXTREMITIES: No leg edema or cyanosis. Mental status cannot be assessed due to sedation. CARDIOVASCULAR MEDICATIONS: Reviewed. LABORATORY DATA: Shows a white blood cell count of 8.8, hemoglobin of 7.6, and hematocrit of 26, and platelet count is 341,000. Sodium is 146, potassium is 3.4, chloride is 107, bicarb is 32, BUN is 41, creatinine is 1.13, glucose is 169. Liver tests are within reference range. ASSESSMENT: 1. Acute hypoxemic respiratory failure, on mechanical ventilation. 2. Covid19 infection and associated pneumonia. 3. History of coronary artery disease. 4. Hypertension. 5. Anemia. RECOMMENDATIONS: 1. Tracheostomy planned for this week. 2. Sinus tachycardia in part due to pressors; decrease dose if possible. 3. Continue full support. 4. Anemia: H/H stable. Cee Redmond MD EC/MODL /[id number]
[2019-10-16] MEDS ORDERED: NOREPINEPHRINE 8 MG/D5W 250 ML 250 ML ONE (23:52)
[2019-10-17] VITALS: BP 131/50
[2019-10-17] MEDS: METOCLOPRAMIDE HCL 10 MG/2ML VIAL IV SCH
[2019-10-17 01:00] VITALS: BP 106/44
[2019-10-17] MEDS: FENTANYL CITRATE INJ 2,000 MCG in SODIUM CHLORIDE 0.9% 250ML 210 ML IV PRN (01:00)
[2019-10-17] MEDS: MIDAZOLAM HCL 50 MG in SODIUM CHLORIDE 0.9% 100 ML 90 ML IV PRN (01:36)
[2019-10-17 02:00] VITALS: BP 107/44
[2019-10-17 03:00] VITALS: BP 114/46
[2019-10-17 04:13] VITALS: BP 101/40
[2019-10-17 05:00] VITALS: BP 100/42
[2019-10-17] MEDS: CEFEPIME 2 GM/NS 0.9% 100 ML 100 ML IV SCH (05:01)
[2019-10-17 05:18] LABS: BASOPHILS # (AUTO) 0.1 (0.0-0.1); BASOPHILS % 0.5 % (0.0-1.0); EOSINOPHILS # (AUTO) 1.3 (0.0-0.4); EOSINOPHILS % 7.9 % (0.0-6.0); HEMATOCRIT 27.6 % (38.2-49.6); LYMPHOCYTES % 5.9 % (18.0-39.1); MEAN CORPUSCULAR HEMOGLOBIN 30.2 pg (28-32); MEAN CORPUSCULAR VOLUME 104.2 fL (81-99); MONOCYTES # (AUTO) 1.5 (0.2-0.8); MONOCYTES % 8.8 % (4.4-11.3); NEUTROPHILS # (AUTO) 12.1 (2.1-6.9); NEUTROPHILS % 72.8 % (38.7-80.0); PLATELET COUNT 570 x10e3/uL (140-360); RED BLOOD COUNT 2.65 x10e6/uL (4.3-5.7); RED CELL DISTRIBUTION WIDTH 14.7 % (11.7-14.4)
[2019-10-17 05:38] LABS: ALBUMIN 2.3 g/dL (3.5-5.0); ALBUMIN/GLOBULIN RATIO 0.6 (0.8-2.0); ANION GAP 15.2 mmol/L (8-16); CALCIUM 9.6 mg/dL (8.4-10.2); CREATININE, SERUM 1.41 mg/dL (0.72-1.25); POTASSIUM 4.2 mmol/L (3.5-5.1)
--- NOTE | 2019-10-17 06:03 | Diagnostic Imaging Report ---
EXAMINATION: CHEST SINGLE (PORTABLE) INDICATION: CODE BLUE COMPARISON: Chest x-ray 10/15/2019 FINDINGS: TUBES and LINES: ET tube tip in the mid intrathoracic trachea. Enteric tube courses below the left hemidiaphragm. Right IJ central venous catheter tip in the low SVC. LUNGS: Extensive hazy and coarse reticular opacities throughout the lungs. PLEURA: No pleural effusion or pneumothorax. HEART AND MEDIASTINUM: Unchanged BONES AND SOFT TISSUES: Unchanged UPPER ABDOMEN: No free air under the diaphragm. IMPRESSION: Lines and tubes as above. Extensive airspace disease. Signed by: Toño Tolentino DO on 10/17/2019 6:00 AM
[2019-10-17 06:05] LABS: CREATINE KINASE MB 1.9 ng/mL (0-5.0)
[2019-10-17] MEDS ORDERED: SODIUM CHLORIDE 0.9% 1000ML 1,000 ML ONE (06:08)
--- NOTE | 2019-10-17 07:45 | NUR ---
0515 Pt BP drop in the 50's. No pulse palpated during this time.Code blue activated, pt regained pulse and lost again. CPR activated again. pt lost pulse again and CPR. pt was pronouced at 0621
--- NOTE | 2019-10-17 08:33 | Progress Note ---
DATE: Code Blue Note At about 5:00 a.m., the patient had worsening hypotension. The staff increased his Levophed. He subsequently lost pulse. A Cold Blue was called and CPR was initiated. He received a round of epi. His pulse return and was subsequently notified by the ER doctor. A chest x-ray was done. There was no tension pneumo. Morning blood work showed no evidence of bleeding. An EKG showed possible third-degree heart block and possible inferior wall VT. The patient received IV fluids. He was continued on pressors. At around 6:10, he lost his pulse again. CPR was initiated. A Code Blue was called. The patient received epinephrine twice as well as bicarbonate and atropine. CPR was continued, but we were unable to regain a pulse. The monitor showed asystole. Code was subsequently called at 6:26 a.m. MD ROBERT Epps/MISAEL /[id number]
[2019-10-17 13:00] LABS: ABG PCO2 67 mmHg (35-45); ABG PH 7.24 (7.35-7.45); ABG PO2 65 mmHg (80-105)
[2019-10-17 13:01] LABS: ABG HCO3 29 mmol/L (22-26); ABG TCO2 31
--- NOTE | 2019-10-17 16:01 | NUR ---
Patient at 0626 per RN shift report. Armani Soriano home resources representative picked up the patient body at 1339. Patient Grand-daughter Savanna Geller gave the telephone order for the body to be released and also with the patient belongings given to the home resources representative who the Savanna said is a family member.
--- NOTE | 2019-10-18 03:44 | Discharge Summary ---
SUMMARY DATE OF : 10/17/2019. TIME OF : 6:26 a.m. FINAL DIAGNOSES: 1. PEA arrest/cardiac arrest. 2. Acute respiratory failure, secondary to viral pneumonia from COVID-19 pneumonia. 3. Sepsis, secondary to aspergillosis. 4. Acute kidney injury. 5. Anemia. CONSULTANTS: Pulmonary Critical Care, Cardiology, Infectious Disease, General Surgery. LABORATORY DATA: White count early this morning 16, hemoglobin 8, hematocrit is 27, and platelets of 570. ABG; pH of 7.2, pCO2 of 67, PaO2 of 65, bicarbonate 29. Chemistry; sodium 144, potassium 4.2, chloride 108, bicarb 25, anion gap of 15, BUN is 46, creatinine 1.41, glucose is 161, calcium 9.6, total bilirubin is 0.5, AST 30, ALT 18, alkaline phosphatase 64. BNP was 31. Total protein was 6. Urinalysis, negative. Serologies; Coronavirus positive. MICROBIOLOGY: Blood cultures were negative 06/01. Sputum culture 03/01 shows aspergillosis fumigatus. Urine cultures were negative. IMAGING STUDIES: Chest x-ray on admission 09/25/2019, shows mild bilateral hazy opacity, atypical pneumonia noted. CT abdomen and pelvis shows multiple pulmonary findings consistent with history of COVID pneumonia. No other intraabdominal pathology. CT of the chest, extensive ground-glass opacity, interstitial opacities noted consistent with impaction. No pulmonary embolism. There is a chest x-ray 10/17/2019, shows extensive air space disease. HOSPITAL COURSE: This is an 79-year-old male, who came in with cough, congestion, shortness of breath, and underlying fever, found to have COVID-19 pneumonia. Pulmonary Critical Care, ID, and Cardiology were all involved. The patient developed acute respiratory failure, after trying conservative treatment with Vapotherm, high-flow oxygen, and non-rebreather. The patient was eventually intubated and sedated, on a mechanical ventilation. The patient maintained on IV antibiotic therapy, steroids. Blood cultures 06/01 were negative. Sputum culture shows aspergillosis, in which antifungal therapy was initiated by ID. The patient was on and off IV pressors. The patient continued to get severely hypoxic throughout the hospital course. Of note, was very hypoxic throughout majority of the day on 10/16/2019, and early mornings of 10/17/2019. The patient required 100% FiO2 on mechanical ventilation. His oxygen requirement continued to increase. Of note, he was also showed evidence of hypotension and also has was having episodes of fever on 10/16/2019 and 10/17/2019. He is being treated accordingly with IV antibiotic therapy by Infectious Disease. Pulmonary Critical Care was also assisting in this patient's care. The patient also developed acute kidney injury with mild hypokalemia, which resolved. Also, had underlying metabolic acidosis and hyponatremia, which resolved. He also was found to be anemic, in which the blood transfusion was given on 10/09/2019. Cardiology was consulted for underlying tachycardia. He was treated accordingly. General Surgery was consulted as the patient was in the process of getting a tracheostomy on 10/17/2019. Of note, in the early mornings of 10/17/2019, the patient went into PPE cardiac arrest, in which the patient was resuscitated initially, but then coded again thereafter. The patient was being coded by the ER physician as well as Pulmonary Critical Care doctor. Initial reading was PEA arrest according to the code sheet. After several rounds of CPR, the patient was pronounced at 6:26 a.m. by the ER physician. Family was notified. The patient's family initially did not answer the phone calls, but eventually they answered and condolences were given to the family. We discussed the findings with the family and they verbalized understanding. DISPOSITION: To home. MD SRIDHAR Manuel/MISAEL /[id number]
== END 2019-10-17 13:40 | disposition expired | DRG 870 ==
LOC: FSED 13:28 → ERHOLD 16:52 → ICU 20:22 → COVIDICU 10-02 13:30
PROVIDERS: ADMIT Internal Medicine; ATTEND Internal Medicine
PROC: 02HV33Z Insertion of Infusion Device into Superior Vena Cava, Percutaneous Approach (ICD-10-PCS; 2019-09-24)
PROC: 0BH17EZ Insertion of Endotracheal Airway into Trachea, Via Natural or Artificial Opening (ICD-10-PCS; principal; 2019-09-28)
PROC: 5A1955Z Respiratory Ventilation, Greater than 96 Consecutive Hours (ICD-10-PCS; 2019-09-28)
PROC: 03HB33Z Insertion of Infusion Device into Right Radial Artery, Percutaneous Approach (ICD-10-PCS; 2019-09-29)
PROC: 30243N1 Transfusion of Nonautologous Red Blood Cells into Central Vein, Percutaneous Approach (ICD-10-PCS; 2019-10-09)
DX: A41.89 Other specified sepsis (principal); U07.1 COVID-19; J12.9 Viral pneumonia, unspecified; I46.9 Cardiac arrest, cause unspecified; J96.01 Acute respiratory failure with hypoxia; J15.9 Unspecified bacterial pneumonia; R65.21 Severe sepsis with septic shock; N17.9 Acute kidney failure, unspecified; E87.1 Hypo-osmolality and hyponatremia; B44.9 Aspergillosis, unspecified; B19.9 Unspecified viral hepatitis without hepatic coma; E87.4 Mixed disorder of acid-base balance; E87.0 Hyperosmolality and hypernatremia; A41.9 Sepsis, unspecified organism; E87.5 Hyperkalemia; D64.9 Anemia, unspecified; E78.5 Hyperlipidemia, unspecified; E78.00 Pure hypercholesterolemia, unspecified; E11.9 Type 2 diabetes mellitus without complications; I25.10 Atherosclerotic heart disease of native coronary artery without angina pectoris; E86.0 Dehydration; Z95.5 Presence of coronary angioplasty implant and graft
CPT/HCPCS: 31720; 36415; 36600; 71045; 71260; 74018; 74177; 80053; 81001; 82550; 82553; 82805; 82948; 83605; 83880; 84145; 84484; 85025; 85610; 85730; 86850; 86900; 86920; 87040; 87070; 87086; 87205; 92950; 93005; 93306; 94002; 94003; 94640; 94664; 96361; 99284; J0330; J0360; J0696; J1100; J1650; J1940; J2248; J2250; J2765; J2930; J3370; J3480; J7030; J7040; J7050; J7070; J7121; P9016; P9047; Q9967; U0002